=== PATIENT | male | born 1940 | race Caucasian/White ===

== ENCOUNTER 2020-06-11 21:21 | Outpatient (REF) | payer OTHER, SELFPAY ==
[2020-06-11 21:41] LABS: Glucose Urine UA NEG (NEG); Leukocyte Esterase Urine NEG (NEG); Nitrite Urine POS (NEG); PH >= 9.0 (5.0-8.0); Urine Blood NEG (NEG); Urine Ketones NEG (NEG); Urine Protein NEG (NEG-TRACE)
[2020-06-11 21:46] LABS: Color Urine YELLOW
[2020-06-11 21:47] LABS: Appearance Urine HAZY
[2020-06-11 22:02] LABS: RBC Urine 0-2 /HPF (0); WBC Urine 0-2 /HPF (0-4)
[2020-06-11 22:03] LABS: Bacteria Urine 2+ /LPF
== END 2020-06-11 21:22 | disposition home or self-care (01) ==
LOC: HO.LNP 21:21
PROVIDERS: Visit Provider Internal Medicine Medical Oncology
DX: N39.0 Urinary tract infection, site not specified (principal)
CPT/HCPCS: 81001; 87086; 87088; 87186

== ENCOUNTER 2020-06-26 05:35 | Outpatient (REF) | payer OTHER, SELFPAY | END 2020-06-26 05:36 | disposition home or self-care (01) | LOC: HO.HSH3E 05:35 | PROVIDERS: Visit Provider Internal Medicine Medical Oncology | DX: R31.9 Hematuria, unspecified (principal) | CPT/HCPCS: 87086; 87088; 87186 ==

== ENCOUNTER 2020-10-15 06:02 | Outpatient (REF) | payer OTHER, SELFPAY | END 2020-10-15 06:03 | disposition home or self-care (01) | LOC: HO.HSH3E 06:02 | PROVIDERS: Visit Provider Internal Medicine Medical Oncology | DX: S30.94XA Unspecified superficial injury of scrotum and testes, initial encounter (principal); E11.9 Type 2 diabetes mellitus without complications | CPT/HCPCS: 87071; 87147; 87205 ==

== ENCOUNTER 2020-11-04 06:38 | Outpatient (REF) | payer OTHER, SELFPAY ==
[2020-11-04 07:35] LABS: MANUAL DIFF FLAG NO
[2020-11-04 07:41] LABS: Basophils Percent Auto 0.4 % (0-2); Eosinophils Absolute Auto 0.2 X10*3/uL (0.0-0.4); Eosinophils Percent Auto 2.2 % (0-4); Hematocrit 44.4 % (42-52); Hemoglobin 14.8 g/dl (14.0-18.0); Imm Gran Abs Auto 0.02 X10*3/uL (0.00-0.03); Imm Gran Pct Auto 0.3 % (0.0-0.4); Lymphocytes Absolute Auto 2.3 X10*3/uL (1.2-4.9); Lymphocytes Percent Auto 33.7 % (20-40); Mean Corpuscular HGB Conc 33.3 g/dl (31.0-36.0); Mean Corpuscular Hemoglobin 28.6 pg (27.0-33.0); Mean Corpuscular Volume 85.7 fL (80-98); Mean Platelet Volume 10.7 fL (9.4-12.4); Monocytes Absolute Auto 0.5 X10*3/uL (0.1-1.2); Monocytes Percent Auto 7.2 % (2-11); Neutrophils Absolute Auto 3.9 X10*3/uL (2.0-8.3); Neutrophils Percent Auto 56.2 % (45-73); Platelet Count 165 X10*3/uL (160-400); Red Blood Count 5.18 X10*6/uL (4.60-5.80); White Blood Count 6.9 X10*3/uL (4.8-10.8)
[2020-11-04 08:09] LABS: Alanine Aminotransferase 22 U/L (0-40); Albumin Level 3.6 g/dL (3.5-5.0); Alkaline Phosphatase 102 U/L (39-117); Anion Gap 14 (12-20); Aspartate Amino Transferase 17 U/L (5-37); Bilirubin Total 0.6 mg/dL (0.0-1.0); Blood Urea Nitrogen 17 mg/dL (9-16); Calcium 8.8 mg/dL (8.4-10.2); Carbon Dioxide 28 mmol/L (22-29); Chloride 101 mmol/L (96-108); Estimated Glomerular Filt Rate > 60; Glucose Fasting 289 mg/dL (60-99); Sodium 139 mmol/L (135-145); Total Protein 5.9 g/dL (6.5-8.0)
[2020-11-04 08:33] LABS: Prostate Specific Antigen 3.07 ng/mL (<0.05-4.0)
[2020-11-04 09:16] LABS: Microalbum/Creatinine Ratio Ur 58.7 ug/mg cr
[2020-11-04 09:18] LABS: Estimated Average Glucose 214 mg/dL; Hemoglobin A1c % 9.1 %
== END 2020-11-04 06:39 | disposition home or self-care (01) ==
LOC: HO.HSH3E 06:38
PROVIDERS: Visit Provider Internal Medicine Medical Oncology
DX: E11.9 Type 2 diabetes mellitus without complications (principal)
CPT/HCPCS: 36415; 80053; 82043; 83036; 84153; 85025

== ENCOUNTER 2020-11-17 12:41 | Emergency (ER) | payer OTHER, SELFPAY ==
[2020-11-17 13:00] VITALS: BP 138/60; PULSE 88; RESP 18; TEMP 37.2; O2SAT 97; BMI 38.9
--- NOTE | 2020-11-17 13:00 | ED.EPISTAXIS ---
History of Present Illness General Chief Complaint: General Medical Stated Complaint: EPITAXIS Time Seen by Provider: 11/17/20 12:42 Source: patient and EMS Mode of arrival: EMS Limitations: no limitations History of Present Illness HPI Narrative: 80 y/o male presenting to the ER via EMS from the [facility] with a left nare nose bleed that started this morning. He reports it was coming out like a fountain. He held pressure for an unknown amount of time and put gauze into his nose. He is on baby aspirin but not any full anticoagulation. He has a history of nose bleeds in the alst but non in 3-4 years. He denies SOB, chest pain, nausea or vomiting. No trauma. He states his nose started to spontaneously after he ate his scrambled eggs this morning. Location: Yes left naris Onset/current episode: Yes hour(s) (1) Duration: Yes now resolved Pertinent past history: Yes history of previous nose bleed (3-4 years ago) Context: Yes history of previous nose bleed and Yes aspirin use Treatment prior to arrival: Yes stuff nose with tissue Related Data Allergies Allergy/AdvReac Type Severity Reaction Status Date / Time acetaminophen [Percocet] Allergy Unknown vomiting Verified 09/08/15 00:00 latex [LATEX] Allergy Unknown RASH Unverified 03/27/20 16:04 oxycodone [Percocet] Allergy Unknown vomiting Verified 09/08/15 00:00 latex Allergy Unknown over long Uncoded 09/08/15 00:00 period of time Review of Systems Review of Systems: Constitutional: No Fever, No Chills ENT/Mouth: No sore throat, No Rhinorrhea, No Swallowing Difficulty, +Epistaxis Eyes: No Eye Pain, No Swelling, No Redness Cardiovascular: No Chest Pain, No SOB Respiratory: No Cough, No Sputum Gastrointestinal: No Nausea, No Vomiting, No Diarrhea, No abdominal Pain Skin: No Skin Lesions, No rash Neuro: No Headache Psych: No Anxiety/Panic, No Depression Heme/Lymph: No Bruising PMFSH Past Medical History Attestation statement: The following information was validated with the patient. Social History Social History Advance Directives: No Advance Directives Information Provided: Yes Physical Exam Vital Signs: Vital Signs: Last Vital Signs Temp 98.9 F 11/17/20 13:00 Pulse 88 11/17/20 13:00 Resp 18 11/17/20 13:00 BP 138/60 11/17/20 13:00 Pulse Ox 97 11/17/20 13:00 Body Mass Index 38.9 Appearance: Alert. Oriented X3. No acute distress. Eyes: Pupils equal, round and reactive to light. ENT: left nare with moderate sized blood clot, no active bleeding, Pharynx normal, no posterior bleeding. mucus membranes are moist Neck: Normal inspection. Neck supple. CVS: Normal heart rate and rhythm. Pulses normal. Respiratory: No respiratory distress. Breath sounds normal. Abdomen: Soft and nontender. +BS x4 Skin: Skin warm and dry. Normal skin color. Normal skin turgor. No rashes. Extremities: No lower extremity edema. Neuro: Oriented X 3. No motor deficit. No sensory deficit. Course Course Course Narrative: 80 y/o male on baby aspirin presenting from [facility] with left nare epistaxis x1 hour. Resolved upon arrival. Nose clamp applied, Afrin administered. Basic labs pending. Reevaluation(s) Reevaluation #1: H/H normal. PTT slightly prolonged. normal PT/INR. No active bleeding. Gauze removed, clot removed and Afrin used in left nare. Nasal clamp applied. No active bleeding. Will reassess Reevaluation #2: Clamp removed and no active bleeding noted. He is stable for discharge. Counseled on management. Procedures Epistaxis Control Time Out Performed: No Nostril: Yes left Nose prepped with: Yes oxymetazoline Direct inspection: Yes anterior source identified Direct inspection method: Yes otoscope Clots removed by: Yes blowing nose and Yes manually Epistaxis treatment: Yes other (Afrin spray and nasal clamp) Results of treatment: Yes bleeding controlled and Yes treatment well tolerated Complications: Yes none MDM - Epistaxis Lab Data Result diagrams: 11/17/20 13:13 11/17/20 13:13 Labs: Lab Results 11/17/20 11/17/20 11/17/20 Range/Units 13:13 13:13 13:13 WBC 8.1 (4.8-10.8) X10*3/uL RBC 5.20 (4.60-5.80) X10*6/uL Hgb 14.9 (14.0-18.0) g/dl Hct 45.5 (42-52) % MCV 87.5 (80-98) fL MCH 28.7 (27.0-33.0) pg MCHC 32.7 (31.0-36.0) g/dl RDW 13.0 (11.0-16.0) % Plt Count 178 (160-400) X10*3/uL MPV 10.2 (9.4-12.4) fL Immature Gran % (Auto) 0.2 (0.0-0.4) % Neut % (Auto) 64.3 (45-73) % Lymph % (Auto) 26.6 (20-40) % [place] % (Auto) 6.8 (2-11) % Eos % (Auto) 1.7 (0-4) % Baso % (Auto) 0.4 (0-2) % Lymph # (Auto) 2.2 (1.2-4.9) X10*3/uL [place] # (Auto) 0.6 (0.1-1.2) X10*3/uL Eos # (Auto) 0.1 (0.0-0.4) X10*3/uL Baso # (Auto) 0.0 (0.0-0.2) X10*3/uL Abs Immat Gran (auto) 0.02 (0.00-0.03) X10*3/uL Absolute Neuts (auto) 5.2 (2.0-8.3) X10*3/uL Absolute Nucleated RBC 0.000 (0.0-0.012) X10*3/uL Nucleated RBC % (auto) 0.0 (0.0-0.2) /100WBC PT 12.4 (10.8-13.0) SEC INR 1.0 (0.9-1.1) APTT 40.7 H (24.1-38.0) SEC Sodium 139 (135-145) mmol/L Potassium 4.5 (3.3-5.1) mmol/L Chloride 103 (96-108) mmol/L Carbon Dioxide 26 (22-29) mmol/L Anion Gap 15 (12-20) BUN 20 H (9-16) mg/dL Creatinine 1.22 (0.5-1.4) mg/dL Estim Creat Clear Calc 69.6 Estimated GFR 57 Random Glucose 313 H (60-115) mg/dL Calcium 9.1 (8.4-10.2) mg/dL Critical Care Time Critical Care Time Critical Care Time: No Discharge Plan Discharge Clinical Impression: Acute anterior epistaxis Patient Disposition: Xfer SNF Transfer Details: [facility] Instructions: Nosebleed (ED) Additional Instructions: Your blood counts today were normal. Recommend using nasal saline two times per day to keep your nasal mucosa moist & prevent further bleeding. If you get a recurrent nose bleed use Afrin Nasal Sophia and apply pressure for 15-20 minutes. Follow up with your doctor as needed. If you have recurrent nose bleed that does not stop after holding pressure for 30 minutes, come back to the ER for further evaluation.
[2020-11-17] MEDS: Oxymetazoline HCl 0.05 % Nasal 15 ML SPRAY 2 SPRAY NOSTRIL-B (13:08)
[2020-11-17 13:18] LABS: MANUAL DIFF FLAG NO
[2020-11-17 13:19] LABS: Basophils Percent Auto 0.4 % (0-2); Eosinophils Absolute Auto 0.1 X10*3/uL (0.0-0.4); Eosinophils Percent Auto 1.7 % (0-4); Hematocrit 45.5 % (42-52); Hemoglobin 14.9 g/dl (14.0-18.0); Imm Gran Abs Auto 0.02 X10*3/uL (0.00-0.03); Imm Gran Pct Auto 0.2 % (0.0-0.4); Lymphocytes Absolute Auto 2.2 X10*3/uL (1.2-4.9); Lymphocytes Percent Auto 26.6 % (20-40); Mean Corpuscular HGB Conc 32.7 g/dl (31.0-36.0); Mean Corpuscular Hemoglobin 28.7 pg (27.0-33.0); Mean Corpuscular Volume 87.5 fL (80-98); Mean Platelet Volume 10.2 fL (9.4-12.4); Monocytes Absolute Auto 0.6 X10*3/uL (0.1-1.2); Monocytes Percent Auto 6.8 % (2-11); Neutrophils Absolute Auto 5.2 X10*3/uL (2.0-8.3); Neutrophils Percent Auto 64.3 % (45-73); Platelet Count 178 X10*3/uL (160-400); White Blood Count 8.1 X10*3/uL (4.8-10.8)
[2020-11-17 13:37] LABS: Prothrombin Time 12.4 SEC (10.8-13.0)
[2020-11-17 13:41] LABS: Partial Thromboplastin Time 40.7 SEC (24.1-38.0)
[2020-11-17 13:47] LABS: Anion Gap 15 (12-20); Blood Urea Nitrogen 20 mg/dL (9-16); Calcium 9.1 mg/dL (8.4-10.2); Carbon Dioxide 26 mmol/L (22-29); Chloride 103 mmol/L (96-108); Creatinine Clr Calc Pharmacy 69.6; Estimated Glomerular Filt Rate 57; Glucose Random 313 mg/dL (60-115); Potassium 4.5 mmol/L (3.3-5.1); Sodium 139 mmol/L (135-145)
== END 2020-11-17 15:33 | disposition skilled nursing facility (03) ==
PROVIDERS: Physician Assistant; Emergency Provider Emergency Medicine; PCP Internal Medicine Medical Oncology
DX: R04.0 Epistaxis (principal)
CPT/HCPCS: 36415; 80048; 85025; 85610; 85730; 99283; 99284

== ENCOUNTER 2020-12-17 06:07 | Outpatient (REF) | payer OTHER, SELFPAY ==
[2020-12-17 08:37] LABS: MANUAL DIFF FLAG NO
[2020-12-17 08:45] LABS: Creatinine Urine 90.74 mg/dL; Microalbum/Creatinine Ratio Ur 17.6 ug/mg cr
[2020-12-17 08:48] LABS: Basophils Percent Auto 0.5 % (0-2); Eosinophils Absolute Auto 0.2 X10*3/uL (0.0-0.4); Eosinophils Percent Auto 2.7 % (0-4); Hematocrit 39.8 % (42-52); Hemoglobin 12.9 g/dl (14.0-18.0); Imm Gran Abs Auto 0.01 X10*3/uL (0.00-0.03); Imm Gran Pct Auto 0.2 % (0.0-0.4); Lymphocytes Absolute Auto 1.9 X10*3/uL (1.2-4.9); Lymphocytes Percent Auto 32.7 % (20-40); Mean Corpuscular HGB Conc 32.4 g/dl (31.0-36.0); Mean Corpuscular Hemoglobin 28.2 pg (27.0-33.0); Mean Corpuscular Volume 87.1 fL (80-98); Mean Platelet Volume 10.6 fL (9.4-12.4); Monocytes Absolute Auto 0.5 X10*3/uL (0.1-1.2); Neutrophils Absolute Auto 3.3 X10*3/uL (2.0-8.3); Neutrophils Percent Auto 55.9 % (45-73); Platelet Count 172 X10*3/uL (160-400); Red Blood Count 4.57 X10*6/uL (4.60-5.80); Red Cell Distribution Width 13.2 % (11.0-16.0); White Blood Count 5.9 X10*3/uL (4.8-10.8)
[2020-12-17 09:06] LABS: Estimated Average Glucose 220 mg/dL; Hemoglobin A1c % 9.3 %
[2020-12-17 09:14] LABS: Alanine Aminotransferase 22 U/L (0-40); Albumin Level 3.6 g/dL (3.5-5.0); Alkaline Phosphatase 91 U/L (39-117); Anion Gap 10 (12-20); Aspartate Amino Transferase 18 U/L (5-37); Bilirubin Total 0.5 mg/dL (0.0-1.0); Blood Urea Nitrogen 17 mg/dL (9-16); Carbon Dioxide 30 mmol/L (22-29); Chloride 103 mmol/L (96-108); Cholesterol 167 mg/dL; Estimated Glomerular Filt Rate > 60; Glucose Fasting 263 mg/dL (60-99); HDL Cholesterol 33 mg/dL; LDL Cholesterol Calculated 86 mg/dl; Potassium 3.9 mmol/L (3.3-5.1); Sodium 139 mmol/L (135-145); Total Protein 5.6 g/dL (6.5-8.0); Triglycerides 240 mg/dL
== END 2020-12-17 06:08 | disposition home or self-care (01) ==
LOC: HO.HSH4E 06:07
PROVIDERS: Visit Provider Internal Medicine Endocrinology, Diabetes & Metabolism
DX: E11.9 Type 2 diabetes mellitus without complications (principal)
CPT/HCPCS: 36415; 80053; 80061; 82043; 83036; 85025

== ENCOUNTER 2021-03-23 07:51 | Outpatient (REF) | payer OTHER, SELFPAY ==
[2021-03-23 08:27] LABS: Estimated Average Glucose 163 mg/dL; Hemoglobin A1c % 7.3 %
== END 2021-03-23 07:52 | disposition home or self-care (01) ==
LOC: HO.HSH4E 07:51
PROVIDERS: Visit Provider Internal Medicine Endocrinology, Diabetes & Metabolism
DX: E11.9 Type 2 diabetes mellitus without complications (principal)
CPT/HCPCS: 36415; 83036

== ENCOUNTER 2021-06-01 10:45 | Inpatient (IN) | payer OTHER, SELFPAY ==
[2021-06-01] VITALS (10 sets, daily range): BP systolic 147–175; BP diastolic 65–88; PULSE 66–128; RESP 16–21; TEMP 36.9–38.6; O2SAT 95–96; BMI 31.1
--- NOTE | ~2021-06-01 | XR_ITS ---
EXAMINATION: XR CHEST CLINICAL INFORMATION: Fever COMPARISON: None TECHNIQUE: Portable upright AP view of the chest was obtained. FINDINGS: Patient slightly rotated to left. Probable subsegmental atelectasis left base. Lungs otherwise clear. Heart is normal in size. The vascularity is normal. No vascular congestion. No lobar or segmental airspace consolidation or effusion. The cardiac and hilar and mediastinal contours are unremarkable. There are degenerative changes thoracic spine. XR/XR chest 1V IMPRESSION: Disc atelectasis left base. Lungs otherwise clear.
--- NOTE | 2021-06-01 10:52 | ED_ITS ---
HPI - Arrhythmia/Palpitations General Chief Complaint: Arrhythmia/Palpitations Stated Complaint: NEW ONSET AFIB PER EMS Time Seen by Provider: 06/01/21 10:52 Source: patient and EMS Mode of arrival: EMS Limitations: altered mental status History of Present Illness MD complaint: atrial fibrillation (found to have irregular pulse this AM) Onset (ago): unknown Duration: constant Severity: mild Context: occurred during rest Associated symptoms: denies other symptoms Related Data Home Medications Medication Instructions Recorded Confirmed acetaminophen 325 mg tablet 650 mg PO BEDTIME 06/01/21 06/01/21 amlodipine 5 mg tablet 5 mg PO BEDTIME 06/01/21 06/01/21 aspirin 81 mg chewable tablet 81 mg PO DAILY 06/01/21 06/01/21 calcium carbonate 500 mg (1,250 1 tab PO DAILY 06/01/21 06/01/21 mg)-vitamin D3 200 unit tablet (Calcium 500 + D) carboxymethylcellulose sodium 1 % 1 drp OPHTHALMIC (EYE) BID 06/01/21 06/01/21 eye drops cholecalciferol (vitamin D3) 25 25 mcg PO DAILY 06/01/21 06/01/21 mcg (1,000 unit) tablet cyanocobalamin (vitamin B-12) 1,000 mcg IM QMONTH 06/01/21 06/01/21 1,000 mcg/mL injection solution docusate sodium 100 mg tablet 100 mg PO DAILY 06/01/21 06/01/21 gabapentin 400 mg capsule 400 mg PO BID 06/01/21 06/01/21 insulin glargine 100 unit/mL 70 unit SUBCUT BEDTIME 06/01/21 06/01/21 subcutaneous solution (Lantus U-100 Insulin) insulin lispro 100 unit/mL 1 sliding scale dose SUBCUT 06/01/21 06/01/21 subcutaneous solution USEASDIRECTD insulin lispro 100 unit/mL 10 unit SUBCUT DAILY@1800 06/01/21 06/01/21 subcutaneous solution insulin lispro 100 unit/mL 12 unit SUBCUT DAILY@1200 06/01/21 06/01/21 subcutaneous solution insulin lispro 100 unit/mL 14 unit SUBCUT DAILY@0800 06/01/21 06/01/21 subcutaneous solution magnesium hydroxide 400 mg/5 mL 30 ml PO BEDTIME PRN 06/01/21 06/01/21 oral suspension (Milk of Magnesia) multivitamin with minerals 1 tab PO DAILY 06/01/21 06/01/21 tamsulosin 0.4 mg capsule 0.8 mg PO BEDTIME 06/01/21 06/01/21 valsartan 160 mg capsule 160 mg PO DAILY 06/01/21 06/01/21 vit C 250 mg-vit E 90 mg-zinc 40 2 tab PO DAILY 06/01/21 06/01/21 mg-copper 1 dm-cuvjac-xlealt capsule (PreserVision AREDS-2) Allergies Allergy/AdvReac Type Severity Reaction Status Date / Time acetaminophen [Percocet] Allergy Unknown vomiting Verified 09/08/15 00:00 latex [LATEX] Allergy Unknown RASH Unverified 03/27/20 16:04 oxycodone [Percocet] Allergy Unknown vomiting Verified 09/08/15 00:00 latex Allergy Unknown over long Uncoded 09/08/15 00:00 period of time Review of Systems Review of Systems: ROS unable to be obtained due to altered mental status - baseline dementia [facility] Past Medical History Source: old records reviewed and nursing notes reviewed Medical History Dementia HTN (hypertension) Social History Social History (Updated 06/01/21 @ 11:16 by Leida Christine DO) Patient Tobacco Use Status: Tobacco use Unknown Advance Directives: Yes Advance Directives on File: Yes Advance Directives Date on File: 11/17/20 Physical Exam Vital Signs: Vital Signs: Last Vital Signs Temp 99 F 06/01/21 12:59 Pulse 85 06/01/21 12:59 Resp 21 H 06/01/21 12:03 BP 160/78 H 06/01/21 10:55 Pulse Ox 95 06/01/21 10:55 Body Mass Index 31.1 Appearance: Alert. Oriented X2. No acute distress. Eyes: Pupils equal, round and reactive to light. ENT: Pharynx normal. Neck: Normal inspection. Neck supple. CVS: tachycardic and irregular heart rate and rhythm. Pulses normal. Respiratory: No respiratory distress. Breath sounds normal. Abdomen: Soft and nontender. no grimace Skin: Skin warm and dry. Normal skin color. Normal skin turgor. Extremities: No lower extremity edema. No calf ttp Neuro: Oriented X 2. No motor deficit. No sensory deficit. Course Course Course Narrative: + UA prior proteus S to ceftriaxone given new onset afib and UTI will admit to hospital - his HCP wants him admitted MDM - Arrhythmia/Palpitations MDM Narrative Medical decision making narrative: 80 yo male with hx of dementia, bed bound, HTN, DNR/DNI does not want to be hospitalized brought to ED with irregular HR found to be in new onset afib - he is febrile will need labs, CXR, UA, tylenol will discuss with family treatment options suspect UTI vs pneumonia and infection possibly the cause of his new afib Lab Data Result diagrams: 06/01/21 11:06/01/21 11: Labs: Lab Results 06/01/21 06/01/21 06/01/21 Range/Units 11: 11: 11: WBC 14.1 H (4.8-10.8) X10*3/uL RBC 5.12 (4.60-5.80) X10*6/uL Hgb 14.4 (14.0-18.0) g/dl Hct 44.2 (42.0-52.0) % MCV 86.3 (80.0-98.0) fL MCH 28.1 (27.0-33.0) pg MCHC 32.6 (31.0-36.0) g/dl RDW 13.2 (11.0-16.0) % Plt Count 174 (160-400) X10*3/uL MPV 10.3 (9.4-12.4) fL Immature Gran % (Auto) 0.4 (0.0-0.4) % Neut % (Auto) 82.2 H (45-73) % Lymph % (Auto) 9.8 L (20-40) % [place] % (Auto) 7.2 (2-11) % Eos % (Auto) 0.2 (0-4) % Baso % (Auto) 0.2 (0-2) % Lymph # (Auto) 1.4 (1.2-4.9) X10*3/uL [place] # (Auto) 1.0 (0.1-1.2) X10*3/uL Eos # (Auto) 0.0 (0.0-0.4) X10*3/uL Baso # (Auto) 0.0 (0.0-0.2) X10*3/uL Abs Immat Gran (auto) 0.06 H (0.00-0.03) X10*3/uL Absolute Neuts (auto) 11.6 H (2.0-8.3) x10*3/uL Absolute Nucleated RBC 0.000 (0.0-0.012) X10*3/uL Nucleated RBC % (auto) 0.0 (0.0-0.2) /100WBC PT 12.5 (9.9-13.0) SEC INR 1.1 (0.9-1.1) APTT 38.6 H (24.1-38.0) SEC Sodium 140 (135-145) mmol/L Potassium 4.1 (3.3-5.1) mmol/L Chloride 105 (96-108) mmol/L Carbon Dioxide 24 (22-29) mmol/L Anion Gap 15 (12-20) BUN 24 H (9-16) mg/dL Creatinine 1.06 (0.5-1.4) mg/dL Estim Creat Clear Calc 71.7 Estimated GFR > 60 Random Glucose 204 H (60-115) mg/dL Lactic Acid (0.5-2.0) mmol/L Calcium 9.2 (8.4-10.2) mg/dL Magnesium 1.8 (1.6-2.6) mg/dL Total Bilirubin 1.0 (0.0-1.0) mg/dL Direct Bilirubin 0.3 (0.0-0.5) mg/dL AST 39 H D (5-37) U/L ALT 41 H (0-40) U/L Alkaline Phosphatase 105 (39-117) U/L Troponin I High Sens (<3.5-35.0) ng/L B-Natriuretic Peptide (<100) pg/mL Total Protein 6.9 D (6.5-8.0) g/dL Albumin 4.1 (3.5-5.0) g/dL TSH 1.51 (0.32-4.0) uIU/mL Urine Color Urine Appearance Urine pH (5.0-8.0) Ur Specific [place] (1.005-1.025) Urine Protein (NEG-TRACE) MG/DL Urine Glucose (UA) (NEG) MG/DL Urine Ketones (NEG) MG/DL Urine Blood (NEG) Urine Nitrite (NEG) Ur Leukocyte Esterase (NEG) Urine RBC (0) /HPF Urine WBC (0-4) /HPF Ur Squamous Epith Cells /LPF Urine Bacteria /LPF COVID-19 (NARCISO) (Negative) COVID-19 Clin Com 06/01/21 06/01/21 06/01/21 Range/Units 11:26 11:26 11:26 WBC (4.8-10.8) X10*3/uL RBC (4.60-5.80) X10*6/uL Hgb (14.0-18.0) g/dl Hct (42.0-52.0) % MCV (80.0-98.0) fL MCH (27.0-33.0) pg MCHC (31.0-36.0) g/dl RDW (11.0-16.0) % Plt Count (160-400) X10*3/uL MPV (9.4-12.4) fL Immature Gran % (Auto) (0.0-0.4) % Neut % (Auto) (45-73) % Lymph % (Auto) (20-40) % [place] % (Auto) (2-11) % Eos % (Auto) (0-4) % Baso % (Auto) (0-2) % Lymph # (Auto) (1.2-4.9) X10*3/uL [place] # (Auto) (0.1-1.2) X10*3/uL Eos # (Auto) (0.0-0.4) X10*3/uL Baso # (Auto) (0.0-0.2) X10*3/uL Abs Immat Gran (auto) (0.00-0.03) X10*3/uL Absolute Neuts (auto) (2.0-8.3) x10*3/uL Absolute Nucleated RBC (0.0-0.012) X10*3/uL Nucleated RBC % (auto) (0.0-0.2) /100WBC PT (9.9-13.0) SEC INR (0.9-1.1) APTT (24.1-38.0) SEC Sodium (135-145) mmol/L Potassium (3.3-5.1) mmol/L Chloride (96-108) mmol/L Carbon Dioxide (22-29) mmol/L Anion Gap (12-20) BUN (9-16) mg/dL Creatinine (0.5-1.4) mg/dL Estim Creat Clear Calc Estimated GFR Random Glucose (60-115) mg/dL Lactic Acid 1.8 (0.5-2.0) mmol/L Calcium (8.4-10.2) mg/dL Magnesium (1.6-2.6) mg/dL Total Bilirubin (0.0-1.0) mg/dL Direct Bilirubin (0.0-0.5) mg/dL AST (5-37) U/L ALT (0-40) U/L Alkaline Phosphatase (39-117) U/L Troponin I High Sens 13.4 (<3.5-35.0) ng/L B-Natriuretic Peptide 71 (<100) pg/mL Total Protein (6.5-8.0) g/dL Albumin (3.5-5.0) g/dL TSH (0.32-4.0) uIU/mL Urine Color YELLOW Urine Appearance CLOUDY Urine pH 6.0 (5.0-8.0) Ur Specific [place] 1.020 (1.005-1.025) Urine Protein TRACE (NEG-TRACE) MG/DL Urine Glucose (UA) NEG (NEG) MG/DL Urine Ketones NEG (NEG) MG/DL Urine Blood 2+ H (NEG) Urine Nitrite POS H (NEG) Ur Leukocyte Esterase 1+ H (NEG) Urine RBC 5-9 H (0) /HPF Urine WBC 30-49 H (0-4) /HPF Ur Squamous Epith Cells TRACE /LPF Urine Bacteria 3+ /LPF COVID-19 (NARCISO) (Negative) COVID-19 Clin Com 06/01/21 Range/Units 11:28 WBC (4.8-10.8) X10*3/uL RBC (4.60-5.80) X10*6/uL Hgb (14.0-18.0) g/dl Hct (42.0-52.0) % MCV (80.0-98.0) fL MCH (27.0-33.0) pg MCHC (31.0-36.0) g/dl RDW (11.0-16.0) % Plt Count (160-400) X10*3/uL MPV (9.4-12.4) fL Immature Gran % (Auto) (0.0-0.4) % Neut % (Auto) (45-73) % Lymph % (Auto) (20-40) % [place] % (Auto) (2-11) % Eos % (Auto) (0-4) % Baso % (Auto) (0-2) % Lymph # (Auto) (1.2-4.9) X10*3/uL [place] # (Auto) (0.1-1.2) X10*3/uL Eos # (Auto) (0.0-0.4) X10*3/uL Baso # (Auto) (0.0-0.2) X10*3/uL Abs Immat Gran (auto) (0.00-0.03) X10*3/uL Absolute Neuts (auto) (2.0-8.3) x10*3/uL Absolute Nucleated RBC (0.0-0.012) X10*3/uL Nucleated RBC % (auto) (0.0-0.2) /100WBC PT (9.9-13.0) SEC INR (0.9-1.1) APTT (24.1-38.0) SEC Sodium (135-145) mmol/L Potassium (3.3-5.1) mmol/L Chloride (96-108) mmol/L Carbon Dioxide (22-29) mmol/L Anion Gap (12-20) BUN (9-16) mg/dL Creatinine (0.5-1.4) mg/dL Estim Creat Clear Calc Estimated GFR Random Glucose (60-115) mg/dL Lactic Acid (0.5-2.0) mmol/L Calcium (8.4-10.2) mg/dL Magnesium (1.6-2.6) mg/dL Total Bilirubin (0.0-1.0) mg/dL Direct Bilirubin (0.0-0.5) mg/dL AST (5-37) U/L ALT (0-40) U/L Alkaline Phosphatase (39-117) U/L Troponin I High Sens (<3.5-35.0) ng/L B-Natriuretic Peptide (<100) pg/mL Total Protein (6.5-8.0) g/dL Albumin (3.5-5.0) g/dL TSH (0.32-4.0) uIU/mL Urine Color Urine Appearance Urine pH (5.0-8.0) Ur Specific [place] (1.005-1.025) Urine Protein (NEG-TRACE) MG/DL Urine Glucose (UA) (NEG) MG/DL Urine Ketones (NEG) MG/DL Urine Blood (NEG) Urine Nitrite (NEG) Ur Leukocyte Esterase (NEG) Urine RBC (0) /HPF Urine WBC (0-4) /HPF Ur Squamous Epith Cells /LPF Urine Bacteria /LPF COVID-19 (NARCISO) Negative (Negative) COVID-19 Clin Com See Note ECG Data Attestation: I personally reviewed and interpreted this ECG as follows: ECG interpretation date: 06/01/21 ECG interpretation time: 11:12 Interpretation: Rate: 130 Rhythm: afib with RVR [place]: normal Normal QRS complex. ST T wave : nonspecific, no CASTRO qTC: normal prior studies: no acute ischemia The study has been interpreted contemporaneously by me. . Discharge Plan Discharge Clinical Impression: Acute UTI A-fib Qualifiers: Atrial fibrillation type: unspecified Qualified Code(s): I48.91 - Unspecified atrial fibrillation Fever Qualifiers: Fever type: unspecified Qualified Code(s): R50.9 - Fever, unspecified Patient Disposition: Admitted As Inpatient
--- NOTE | 2021-06-01 11:01 | ECG_ITS ---
Test Reason : A-FIB Blood Pressure : / mmHG Vent. Rate : 130 BPM Atrial Rate : 000 BPM P-R Int : 000 ms QRS Dur : 080 ms QT Int : 298 ms P-R-T Axes : 000 004 043 degrees QTc Int : 438 ms Atrial fibrillation with rapid ventricular response Abnormal ECG When compared with ECG of 19-MAR-2015 14:14, Atrial fibrillation has replaced Sinus rhythm Vent. rate has increased BY 71 BPM Referred By: Leida Christine Electronically Signed By:SAGAR HO MD
[2021-06-01 11:34] LABS: MANUAL DIFF FLAG NO
[2021-06-01] MEDS: Acetaminophen 325 MG TABLET 650 MG PO (11:37)
[2021-06-01 11:42] LABS: Appearance Urine CLOUDY; Basophils Percent Auto 0.2 % (0-2); Color Urine YELLOW; Eosinophils Percent Auto 0.2 % (0-4); Glucose Urine UA NEG (NEG); Hematocrit 44.2 % (42.0-52.0); Hemoglobin 14.4 g/dl (14.0-18.0); Imm Gran Abs Auto 0.06 X10*3/uL (0.00-0.03); Imm Gran Pct Auto 0.4 % (0.0-0.4); Leukocyte Esterase Urine 1+ (NEG); Lymphocytes Absolute Auto 1.4 X10*3/uL (1.2-4.9); Lymphocytes Percent Auto 9.8 % (20-40); Mean Corpuscular HGB Conc 32.6 g/dl (31.0-36.0); Mean Corpuscular Hemoglobin 28.1 pg (27.0-33.0); Mean Corpuscular Volume 86.3 fL (80.0-98.0); Mean Platelet Volume 10.3 fL (9.4-12.4); Monocytes Percent Auto 7.2 % (2-11); Neutrophils Absolute Auto 11.6 x10*3/uL (2.0-8.3); Neutrophils Percent Auto 82.2 % (45-73); Nitrite Urine POS (NEG); Platelet Count 174 X10*3/uL (160-400); Red Blood Count 5.12 X10*6/uL (4.60-5.80); Red Cell Distribution Width 13.2 % (11.0-16.0); UACC Culture Trigger YES; Urine Blood 2+ (NEG); Urine Ketones NEG (NEG); Urine Protein TRACE MG/DL (NEG-TRACE); White Blood Count 14.1 X10*3/uL (4.8-10.8)
[2021-06-01 11:46] LABS: INTERNATIONAL NORM RATIO 1.1 (0.9-1.1); Prothrombin Time 12.5 SEC (9.9-13.0)
[2021-06-01 11:49] LABS: Partial Thromboplastin Time 38.6 SEC (24.1-38.0)
[2021-06-01 11:55] LABS: Bacteria Urine 3+ /LPF; Squamous Epithelial Cell Urine TRACE /LPF
[2021-06-01 11:56] LABS: WBC Urine 30-49 /HPF (0-4)
[2021-06-01 11:56] LABS: COVID-19 Test Negative (Negative); IDNOW Serial# 9DD0AD1C
[2021-06-01 11:57] LABS: Alanine Aminotransferase 41 U/L (0-40); Albumin Level 4.1 g/dL (3.5-5.0); Alkaline Phosphatase 105 U/L (39-117); Anion Gap 15 (12-20); Aspartate Amino Transferase 39 U/L (5-37); Bilirubin Direct 0.3 mg/dL (0.0-0.5); Blood Urea Nitrogen 24 mg/dL (9-16); Calcium 9.2 mg/dL (8.4-10.2); Carbon Dioxide 24 mmol/L (22-29); Chloride 105 mmol/L (96-108); Creatinine Clr Calc Pharmacy 71.7; Estimated Glomerular Filt Rate > 60; Glucose Random 204 mg/dL (60-115); Lactic Acid 1.8 mmol/L (0.5-2.0); Magnesium 1.8 mg/dL (1.6-2.6); Potassium 4.1 mmol/L (3.3-5.1); Sodium 140 mmol/L (135-145); Total Protein 6.9 g/dL (6.5-8.0)
[2021-06-01 11:59] LABS: B Type Natriuretic Peptide 71 pg/mL (<100); Troponin-I High Sensitivity 13.4 ng/L (<3.5-35.0)
[2021-06-01] MEDS: cefTRIAXone sodium 1 GM in 0.9 % Sodium Chloride 50 ML IV (12:03)
[2021-06-01 12:16] LABS: TSH reflex Free T4 1.51 uIU/mL (0.32-4.0)
--- NOTE | 2021-06-01 13:22 | PHA.MEDREC ---
Pharmacy Consult ? Medication Reconciliation Pharmacy has completed the medication reconciliation. There are no remarkable issues for provider's attention. Patient came for the [facility] with medication list. Janna Salinas, TevinD
--- NOTE | 2021-06-01 13:29 | PM.IMHP ---
History of Present Illness Date of Service: 06/01/21 Attending physician on admission: Chirag Francis Chief Complaint: Afib RVR 80 year old man [facility] fever found to be in afib rvr and positive for UTI. He denied any chest pain, shortness of breath, pain, nausea, vomiting, diarrhea. He was given Rocephin with hx of proteus UTI in the past. He was noted to have fever, leukocytosis and tachycardia with positive ua. He will be admitted for further management and treatment of new onset afib rvr and uti Review of Systems Review of Systems: Denies any recent fever chills or decrease in appetite respiratory denies any shortness of breath cardiovascular denied chest pain gastrointestinal denies any dysphagia abdominal pain nausea vomiting or diarrhea genitourinary denies any dysuria frequency or hematuria musculoskeletal denies any joint pain or swelling neuropsych denies any weakness or seizures all other systems reviewed are negative [facility] Medical History Dementia HTN (hypertension) Pertinent family history: No cardiac disease Social History (Updated 06/01/21 @ 11:16 by Leida Christine DO) Patient Tobacco Use Status: Tobacco use Unknown Advance Directives: Yes Advance Directives on File: Yes Advance Directives Date on File: 11/17/20 Meds Allergies Allergy/AdvReac Type Severity Reaction Status Date / Time acetaminophen [Percocet] Allergy Unknown vomiting Verified 09/08/15 00:00 latex [LATEX] Allergy Unknown RASH Unverified 03/27/20 16:04 oxycodone [Percocet] Allergy Unknown vomiting Verified 09/08/15 00:00 latex Allergy Unknown over long Uncoded 09/08/15 00:00 period of time Active Medications: Current Medications Pharmacy Consult (Consult Rx Perform Med Rec) 1 each MISCELLANE ONCE PRN PRN Reason: Consult order Home Medications Medication Instructions Recorded Confirmed Last Taken Type acetaminophen 325 mg tablet 650 mg PO BEDTIME 06/01/21 06/01/21 05/31/21 History amlodipine 5 mg tablet 5 mg PO BEDTIME 06/01/21 06/01/21 05/31/21 History aspirin 81 mg chewable tablet 81 mg PO DAILY 06/01/21 06/01/21 06/01/21 History calcium carbonate 500 mg (1,250 1 tab PO DAILY 06/01/21 06/01/21 06/01/21 History mg)-vitamin D3 200 unit tablet (Calcium 500 + D) carboxymethylcellulose sodium 1 % 1 drp OPHTHALMIC (EYE) BID 06/01/21 06/01/21 06/01/21 History eye drops cholecalciferol (vitamin D3) 25 25 mcg PO DAILY 06/01/21 06/01/21 06/01/21 History mcg (1,000 unit) tablet cyanocobalamin (vitamin B-12) 1,000 mcg IM QMONTH 06/01/21 06/01/21 04/24/21 History 1,000 mcg/mL injection solution docusate sodium 100 mg tablet 100 mg PO DAILY 06/01/21 06/01/21 06/01/21 History gabapentin 400 mg capsule 400 mg PO BID 06/01/21 06/01/21 06/01/21 History insulin glargine 100 unit/mL 70 unit SUBCUT BEDTIME 06/01/21 06/01/21 05/31/21 History subcutaneous solution (Lantus U-100 Insulin) insulin lispro 100 unit/mL 1 sliding scale dose SUBCUT 06/01/21 06/01/21 05/31/21 History subcutaneous solution USEASDIRECTD insulin lispro 100 unit/mL 10 unit SUBCUT DAILY@1800 06/01/21 06/01/21 05/31/21 History subcutaneous solution insulin lispro 100 unit/mL 12 unit SUBCUT DAILY@1200 06/01/21 06/01/21 05/31/21 History subcutaneous solution insulin lispro 100 unit/mL 14 unit SUBCUT DAILY@0800 06/01/21 06/01/21 05/31/21 History subcutaneous solution magnesium hydroxide 400 mg/5 mL 30 ml PO BEDTIME PRN 06/01/21 06/01/21 05/27/21 History oral suspension (Milk of Magnesia) multivitamin with minerals 1 tab PO DAILY 06/01/21 06/01/21 06/01/21 History tamsulosin 0.4 mg capsule 0.8 mg PO BEDTIME 06/01/21 06/01/21 05/31/21 History valsartan 160 mg capsule 160 mg PO DAILY 06/01/21 06/01/21 06/01/21 History vit C 250 mg-vit E 90 mg-zinc 40 2 tab PO DAILY 06/01/21 06/01/21 06/01/21 History mg-copper 1 [id number] capsule (PreserVision AREDS-2) Physical Exam Vital Signs and Narrative: Vital Signs: Last Vital Signs Temp 99 F 06/01/21 12:59 Pulse 85 06/01/21 12:59 Resp 21 H 06/01/21 12:03 BP 160/78 H 06/01/21 10:55 Pulse Ox 95 06/01/21 10:55 Body Mass Index 31.1 Appearing in no acute distress head is normocephalic atraumatic eyes pupils are PERRLA sclera is anicteric mouth throat mucous membranes are intact and moist neck is supple no lymphadenopathy, no JVD noted lung sounds are clear to auscultation heart regular rate rhythm, clear S1, S2 positive bowel sounds, abdomen is soft, nontender, obese neuro patient is alert x3, no focal deficits Results Labs CBC and Chem 7: 06/01/21 11:26 06/01/21 11:26 Labs: Laboratory Results - last 24 hr 06/01/21 06/01/21 06/01/21 11:26 11:26 11:26 MCV 86.3 MCH 28.1 MCHC 32.6 RDW 13.2 Plt Count 174 MPV 10.3 Immature Gran % (Auto) 0.4 Neut % (Auto) 82.2 H Lymph % (Auto) 9.8 L [place] % (Auto) 7.2 Eos % (Auto) 0.2 Baso % (Auto) 0.2 Lymph # (Auto) 1.4 [place] # (Auto) 1.0 Eos # (Auto) 0.0 Baso # (Auto) 0.0 Abs Immat Gran (auto) 0.06 H Absolute Neuts (auto) 11.6 H Absolute Nucleated RBC 0.000 Nucleated RBC % (auto) 0.0 PT 12.5 INR 1.1 APTT 38.6 H Anion Gap 15 Estim Creat Clear Calc 71.7 Estimated GFR > 60 Random Glucose 204 H Lactic Acid Calcium 9.2 Magnesium 1.8 Total Bilirubin 1.0 Direct Bilirubin 0.3 AST 39 H D ALT 41 H Alkaline Phosphatase 105 Troponin I High Sens B-Natriuretic Peptide Total Protein 6.9 D Albumin 4.1 TSH 1.51 Urine Color Urine Appearance Urine pH Ur Specific [place] Urine Protein Urine Glucose (UA) Urine Ketones Urine Blood Urine Nitrite Ur Leukocyte Esterase Urine RBC Urine WBC Ur Squamous Epith Cells Urine Bacteria COVID-19 (NARCISO) COVID-19 Clin Com 06/01/21 06/01/21 06/01/21 11:26 11:26 11:26 MCV MCH MCHC RDW Plt Count MPV Immature Gran % (Auto) Neut % (Auto) Lymph % (Auto) [place] % (Auto) Eos % (Auto) Baso % (Auto) Lymph # (Auto) [place] # (Auto) Eos # (Auto) Baso # (Auto) Abs Immat Gran (auto) Absolute Neuts (auto) Absolute Nucleated RBC Nucleated RBC % (auto) PT INR APTT Anion Gap Estim Creat Clear Calc Estimated GFR Random Glucose Lactic Acid 1.8 Calcium Magnesium Total Bilirubin Direct Bilirubin AST ALT Alkaline Phosphatase Troponin I High Sens 13.4 B-Natriuretic Peptide 71 Total Protein Albumin TSH Urine Color YELLOW Urine Appearance CLOUDY Urine pH 6.0 Ur Specific [place] 1.020 Urine Protein TRACE Urine Glucose (UA) NEG Urine Ketones NEG Urine Blood 2+ H Urine Nitrite POS H Ur Leukocyte Esterase 1+ H Urine RBC 5-9 H Urine WBC 30-49 H Ur Squamous Epith Cells TRACE Urine Bacteria 3+ COVID-19 (NARCISO) COVID-19 Clin Com 06/01/21 11:28 MCV MCH MCHC RDW Plt Count MPV Immature Gran % (Auto) Neut % (Auto) Lymph % (Auto) [place] % (Auto) Eos % (Auto) Baso % (Auto) Lymph # (Auto) [place] # (Auto) Eos # (Auto) Baso # (Auto) Abs Immat Gran (auto) Absolute Neuts (auto) Absolute Nucleated RBC Nucleated RBC % (auto) PT INR APTT Anion Gap Estim Creat Clear Calc Estimated GFR Random Glucose Lactic Acid Calcium Magnesium Total Bilirubin Direct Bilirubin AST ALT Alkaline Phosphatase Troponin I High Sens B-Natriuretic Peptide Total Protein Albumin TSH Urine Color Urine Appearance Urine pH Ur Specific [place] Urine Protein Urine Glucose (UA) Urine Ketones Urine Blood Urine Nitrite Ur Leukocyte Esterase Urine RBC Urine WBC Ur Squamous Epith Cells Urine Bacteria COVID-19 (NARCISO) Negative COVID-19 Clin Com See Note Imaging Radiologist's Impressions: Impressions Chest X-Ray 06/01/21 11:01 IMPRESSION: Disc atelectasis left base. Lungs otherwise clear. Assessment and Plan (1) Acute UTI: Status: Acute (2) A-fib: Qualifiers: Atrial fibrillation type: unspecified Qualified Code(s): I48.91 - Unspecified atrial fibrillation Status: Acute (3) Sepsis: Status: Acute 80 year old man admitted with afib rvr Afib rvr . New onset ? related to UTI Controlled now cardiology to follow discuss blood thinner with family Sepsis secondary to UTI. Hx of proteus Leukocytosis, tachycardia, tachypnea Rocephin Follow cx Hypertension continue amlodipine, valsartan Diabetes sliding scale ADA diet Attending Dr Francis DNR Quality Stroke Does the patient have a stroke diagnosis?: No VTE Prior VTE?: No VTE Risk Level:: Medical - moderate - high VTE Device Contraindication: Treatment Not Indicated VTE Drug Contraindication: N/A - Med Ordered
--- NOTE | 2021-06-01 16:40 | P.EN_ITS ---
Event Note Date of Service: 06/01/21 Event Note: Addendum to history and physical by mid-level provider GENERAL INTERN Rosa pierce I interviewed and examined the patient. I discussed their presentation and management with the mid-level provider. I reviewed the history and physical and agree with the documentation, with the following additions and corrections: 80yo M resident of [facility] with HTN, DM2 presenting with fever, found to be septic with leukocytosis, and found to be in AF/RVR, new-onset. Pyuria + bacteruria concerning for UTI though pt with minimal symptoms. Converted to NSR around 11:15am. On exam, in NAD, heart regular, lungs clear, fully oriented, no leg edema. Lactate normal. Plan admit to [facility], TTE, Cardiology consult, apixaban for anticoagulation. Treat UTI with ceftriaxone + follow UCx.
[2021-06-01 16:45] LABS: Glucose, Whole Blood 170 mg/dL (60-115)
[2021-06-01] MEDS: Insulin Lispro 100 UNIT/ML 3 ML VIAL SUBCUT ×2 (16:48→21:44)
[2021-06-01] MEDS: 0.9 % Sodium Chloride Flush 3 ML SYRINGE IVFLUSH (17:02)
[2021-06-01] MEDS: Insulin Lispro 100 UNIT/ML 3 ML VIAL 10 UNIT SUBCUT (18:43)
--- NOTE | 2021-06-01 19:35 | PC.NURSE ---
Report x1 called, RN to call back. Pt alert and oriented x4, calm and cooperative. Pt denies pain. Pt denies heart palpitations at this time. Denies SOB. Heart rate elevated at 120 at this time. Remains on room air. IV intact. Pt resting in stretcher without issues, will continue to monitor.
[2021-06-01 20:20] LABS: Glucose, Whole Blood 266 mg/dL (60-115)
[2021-06-01] MEDS: Tamsulosin HCL 0.4 MG CAPSULE 0.8 MG PO (21:43)
[2021-06-01] MEDS: Apixaban 5 MG TABLET PO (21:43)
[2021-06-01] MEDS: amLODIPine Besylate 5 MG TABLET PO (21:43)
[2021-06-01] MEDS: Gabapentin 400 MG CAPSULE PO (21:44)
[2021-06-01] MEDS: Insulin Glargine,Hum.rec.anlog 100 UNIT/ML 10 ML VIAL 70 UNIT SUBCUT (21:44)
[2021-06-02] VITALS (7 sets, daily range): BP systolic 116–168; BP diastolic 56–76; PULSE 74–96; RESP 18–20; TEMP 37–38.7; O2SAT 91–98
--- NOTE | 2021-06-02 | ECG_ITS ---
Test Reason : RHYTHM CHANGE Blood Pressure : / mmHG Vent. Rate : 075 BPM Atrial Rate : 075 BPM P-R Int : 178 ms QRS Dur : 086 ms QT Int : 374 ms P-R-T Axes : 052 -21 050 degrees QTc Int : 417 ms Normal sinus rhythm Left axis deviation Poor R wave progression Borderline ECG When compared with ECG of 01-JUN-2021 11:08, Sinus rhythm has replaced Atrial fibrillation Vent. rate has decreased BY 55 BPM Referred By: David Sharma Electronically Signed By:SAGAR HO MD
[2021-06-02] MEDS: 0.9 % Sodium Chloride Flush 3 ML SYRINGE IVFLUSH ×4 (01:05→21:30)
[2021-06-02 06:42] LABS: MANUAL DIFF FLAG NO
[2021-06-02 06:57] LABS: Basophils Percent Auto 0.2 % (0-2); Eosinophils Absolute Auto 0.1 X10*3/uL (0.0-0.4); Eosinophils Percent Auto 0.5 % (0-4); Hematocrit 43.6 % (42.0-52.0); Hemoglobin 14.3 g/dl (14.0-18.0); Imm Gran Abs Auto 0.04 X10*3/uL (0.00-0.03); Imm Gran Pct Auto 0.3 % (0.0-0.4); Lymphocytes Absolute Auto 1.3 X10*3/uL (1.2-4.9); Lymphocytes Percent Auto 10.9 % (20-40); Mean Corpuscular HGB Conc 32.8 g/dl (31.0-36.0); Mean Corpuscular Hemoglobin 28.4 pg (27.0-33.0); Mean Corpuscular Volume 86.5 fL (80.0-98.0); Mean Platelet Volume 10.7 fL (9.4-12.4); Monocytes Absolute Auto 0.9 X10*3/uL (0.1-1.2); Monocytes Percent Auto 7.5 % (2-11); Neutrophils Absolute Auto 9.7 x10*3/uL (2.0-8.3); Neutrophils Percent Auto 80.6 % (45-73); Platelet Count 173 X10*3/uL (160-400); Red Blood Count 5.04 X10*6/uL (4.60-5.80); Red Cell Distribution Width 13.4 % (11.0-16.0); White Blood Count 12.1 X10*3/uL (4.8-10.8)
[2021-06-02 07:01] LABS: Anion Gap 14 (12-20); Blood Urea Nitrogen 21 mg/dL (9-16); Calcium 8.8 mg/dL (8.4-10.2); Carbon Dioxide 25 mmol/L (22-29); Chloride 104 mmol/L (96-108); Creatinine Clr Calc Pharmacy 73.1; Estimated Glomerular Filt Rate > 60; Glucose Random 193 mg/dL (60-115); Potassium 3.7 mmol/L (3.3-5.1); Sodium 139 mmol/L (135-145)
[2021-06-02 07:17] LABS: Glucose, Whole Blood 226 mg/dL (60-115)
--- NOTE | 2021-06-02 09:00 | CA_ITS ---
Transthoracic Echocardiogram Patient (Last, First, Middle): Marty Hannah, Gender: Male Date of : 1940 Age: 80 Procedure Date: 06/02/2021 Procedure Type: Transthoracic Echocardiogram [place] [facility] [place]: 182.88 cm Weight: 136.08 kg BSA: 2.53 m2 Heart Rate: bpm BP: 160 / 78 mmHg Fullerette: Referring MD: Chirag Francis MD Paradichlorobenzene Tender: David Sharma MD Symptoms: new AF/rVR Study Quality: Technically Difficult due to body habitus ECG Rhythm: Sinus Conclusions: - 1. Technically very limited study due to body habitus 2. LV systolic function appears to be normal with LVEF of about 55-60% with grade 1 diastolic dysfunction 3. Limited visualization of cardiac valves with normal cardiac valvular Doppler Findings Procedure Information Contrast agent, definity, is being given per protocol without apparent complications. Left Ventricle The left ventricle was not well visualized. There is mildly increased left ventricular wall thickness. The left ventricular systolic function is normal. The visually estimated ejection fraction is between 55-60%. Regional wall motion abnormalities can not be excluded due to suboptimal endocardial definition. Spectral Doppler is indicative of an impaired relaxation filling pattern. E/E prime ratio is <8, consistent with normal filling pressures. Evidence suggests grade I (mild) diastolic dysfunction. Right Ventricle The right ventricle was not well visualized. There is normal right ventricular systolic function. Atria The left atrium was not well visualized. Interatrial shunt cannot be excluded. The right atrium was not well visualized. Aortic Valve The aortic valve was not well visualized. There is no aortic valve stenosis. There is no aortic valve regurgitation. Mitral Valve The mitral valve was not well visualized. There is no mitral valve regurgitation. There is no mitral valve stenosis. Pulmonic Valve The pulmonic valve was not well visualized. Tricuspid Valve The tricuspid valve was not well visualized. Tricuspid regurgitation envelope is inadequate for calculation of right ventricular systolic pressure. Great Vessels The aorta was not well visualized. The pulmonary artery was not well visualized. Venous The inferior vena cava was not well visualized. Pericardium/Pleural The pericardium was not well visualized. Prior Study Comparison No prior study available for comparison. Measurements 2D Linear Measurements IVSd: 1.33 0.6-0.9/0.6-1.0 cm LVIDd: 4.22 3.9-5.3/4.2-5.9 cm LVIDd Index: 1.67 2.4-3.2/2.2-3.1 cm/m2 LVIDs: 3.24 2.0-3.6 cm LVPWd: 1.29 0.7-1.1 cm Ao Root: 3.70 2.1-3.5 cm LV Mass: 254.66 67-162/88-224 g LV Mass Index: 100.65 43-95/49-115 g/m2 LVOT Diam: 2.50 3.0+(-)1.3 cm Mitral Valve MV Pk E: 0.53 MV PK A: 0.77 MV Decel Time: 262.00 E/A: 0.70 E'Lateral: 7.40 E'Medial: 5.87 E/E' Med: 9.00 E/E' Lat: 7.10 PHT: 77.00 MVA PHT: 2.86 Decel [place]: 2.01 Aortic Valve AoV Pk Casey: 1.59 AoV Mn Casey: 1.10 AoV VTI: 0.35 AoV Pk Grad: 10.00 Aov Mn Grad: 6.00 CLARI Cont.VTI: 4.27 LVOT LVOT Pk Casey: 1.26 LVOT Mn Casey: 0.85 LVOT VTI: 0.30 LVOT Pk Grad: 6.00 LVOT Mn Grad: 4.00 LVOT Diam: 2.50 LVOT Area: 4.91 Diastolic Function MV Pk E: 0.53 MV Pk A: 0.77 E/A: 0.70 E'Medial: 5.87 E/E' Med: 9.00 E' Laterial: 7.40 E/E' Lat: 7.10 Tricuspid Valve TR Pk Casey: 1.79 TR Pk Grad: 13.00 Great Vessels Aorta Ao Root-2D: 3.70 2.0-3.7 cm Updated in Other Vendor System with Status of Final David Sharma MD electronically signed on 06/02/2021 12:16:23 PM with status of Final
[2021-06-02] MEDS: Docusate Sodium 100 MG CAPSULE PO (09:26)
[2021-06-02] MEDS: Aspirin 81 MG TAB.CHEW PO (09:26)
[2021-06-02] MEDS: Apixaban 5 MG TABLET PO ×2 (09:26→21:29)
[2021-06-02] MEDS: Cholecalciferol (Vitamin D3) 25 MCG TABLET PO (09:26)
[2021-06-02] MEDS: Calcium + Vitamin D 250 MG TABLET 500 MG PO (09:26)
[2021-06-02] MEDS: Multivitamin TABLET 1 TAB PO (09:26)
[2021-06-02] MEDS: Gabapentin 400 MG CAPSULE PO ×2 (09:26→21:29)
[2021-06-02] MEDS: Insulin Lispro 100 UNIT/ML 3 ML VIAL SUBCUT ×4 (09:27→21:30)
[2021-06-02] MEDS: Valsartan 160 MG TABLET PO (09:28)
--- NOTE | 2021-06-02 10:02 | HO.PM.IMPN ---
Subjective Subjective Date of Service: 06/02/21 Interval History: feels well several runs of AF overnight without symptoms no urinary symptoms either Review of Systems Review of Systems: Yes all other systems are reviewed and are negative Physical Exam Vital Signs: Vital Signs: Last Vital Signs Temp 99.4 F 06/02/21 07:30 Pulse 74 06/02/21 09:28 Resp 20 06/02/21 07:30 BP 147/66 H 06/02/21 09:28 Pulse Ox 94 06/02/21 07:30 Body Mass Index 31.1 Gen: in no acute distress HEENT: sclera anicteric, moist mucus membranes Neck: supple Lungs: clear to auscultation bilaterally Heart: regular rate and rhythm, no murmurs Abd: soft, non-tender, non-distended Ext: no edema Skin: warm/well-perfused Neuro: alert and oriented x3, no focal findings Psych: appropriate affect Objective Data Active Medications Acetaminophen (Acetaminophen 325 Mg Tablet) 650 mg PO Q6H PRN PRN Reason: Pain, Mild (Pain Scale 1-3) Amlodipine Besylate (Amlodipine Besylate 5 Mg Tablet) 5 mg PO BEDTIME [facility]; Protocol Last Admin: 06/01/21 21:43 Dose: 5 mg Documented by: ROLAND Apixaban (Apixaban 5 Mg Tablet) 5 mg PO BID [facility] Last Admin: 06/02/21 09:26 Dose: 5 mg Documented by: WILBERT Aspirin (Aspirin 81 Mg Tab.Chew) 81 mg PO DAILY [facility] Last Admin: 06/02/21 09:26 Dose: 81 mg Documented by: WILBERT Calcium Carbonate/Cholecalciferol (Calcium + Vitamin D 250 Mg Tablet) 500 mg PO DAILY [facility] Last Admin: 06/02/21 09:26 Dose: 500 mg Documented by: WILBERT Cyanocobalamin (Cyanocobalamin (Vitamin B-12) 1,000 Mcg/Ml Vial) 1,000 mcg IM Q30D [facility] Dextrose (Dextrose 50 % 25 Gm/50 Ml Vial) 25 gm IVPUSH Q15M PRN; Protocol PRN Reason: per Hypoglycemia Standing Ord. Docusate Sodium (Docusate Sodium 100 Mg Capsule) 100 mg PO DAILY [facility] Last Admin: 06/02/21 09:26 Dose: 100 mg Documented by: WILBERT Gabapentin (Gabapentin 400 Mg Capsule) 400 mg PO BID [facility] Last Admin: 06/02/21 09:26 Dose: 400 mg Documented by: WILBERT Glucose (Glucose Gel 15 Gm Gel..Gram.) 15 gm PO Q15M PRN; Protocol PRN Reason: per Hypoglycemia Standing Ord. Ceftriaxone Sodium 1 gm/ (Sodium Chloride) 50 mls @ 100 mls/hr IV Q24H [facility] Insulin Glargine (Insulin Glargine,Hum.Rec.Anlog 100 Unit/Ml 10 Ml Vial) 70 unit SUBCUT BEDTIME [facility] Last Admin: 06/01/21 21:44 Dose: 70 unit Documented by: ROLAND Insulin Human Lispro (Insulin Lispro 100 Unit/Ml 3 Ml Vial) 12 unit SUBCUT DAILY@1200 [facility] Insulin Human Lispro (Insulin Lispro 100 Unit/Ml 3 Ml Vial) 0 unit SUBCUT QIDACHS [facility]; Protocol Last Admin: 06/02/21 09:27 Dose: 4 unit Documented by: WILBERT Insulin Human Lispro (Insulin Lispro 100 Unit/Ml 3 Ml Vial) 10 unit SUBCUT DAILY@1800 [facility] Last Admin: 06/01/21 18:43 Dose: 10 unit Documented by: KERA Magnesium Hydroxide (Milk Of Magnesia 30 Ml Oral.Susp) 30 ml PO BEDTIME PRN PRN Reason: Constipation Metoprolol Succinate (Metoprolol Succinate Er 12.5 Mg Halftab.Er.24h) 12.5 mg PO DAILY [facility]; Protocol Multivitamins/Vitamin C (Multivitamin Tablet) 1 tab PO DAILY [facility] Last Admin: 06/02/21 09:26 Dose: 1 tab Documented by: WILBERT Ondansetron HCl (Ondansetron Hcl 4 Mg/2 Ml Vial) 4 mg IVPUSH Q8H PRN PRN Reason: Nausea and Vomiting Pharmacy Consult (Consult Rx Perform Med Rec) 1 each MISCELLANE ONCE PRN PRN Reason: Consult order Sodium Chloride (0.9 % Sodium Chloride Flush 3 Ml Syringe) 3 ml IVFLUSH QSHIFT [facility] Last Admin: 06/02/21 09:27 Dose: 3 ml Documented by: WILBERT Tamsulosin HCl (Tamsulosin Hcl 0.4 Mg Capsule) 0.8 mg PO BEDTIME [facility] Last Admin: 06/01/21 21:43 Dose: 0.8 mg Documented by: ROLAND Valsartan (Valsartan 160 Mg Tablet) 160 mg PO DAILY [facility] Last Admin: 06/02/21 09:28 Dose: 160 mg Documented by: WILBERT Vitamin D (Cholecalciferol (Vitamin D3) 25 Mcg Tablet) 25 mcg PO DAILY [facility] Last Admin: 06/02/21 09:26 Dose: 25 mcg Documented by: WILBERT Labs CBC & Chem 7: 06/02/21 05:55 06/02/21 05:55 Labs: Laboratory Results - last 24 hr 06/01/21 06/01/21 06/01/21 11:26 11:26 11:26 MCV 86.3 MCH 28.1 MCHC 32.6 RDW 13.2 Plt Count 174 MPV 10.3 Immature Gran % (Auto) 0.4 Neut % (Auto) 82.2 H Lymph % (Auto) 9.8 L [place] % (Auto) 7.2 Eos % (Auto) 0.2 Baso % (Auto) 0.2 Lymph # (Auto) 1.4 [place] # (Auto) 1.0 Eos # (Auto) 0.0 Baso # (Auto) 0.0 Abs Immat Gran (auto) 0.06 H Absolute Neuts (auto) 11.6 H Absolute Nucleated RBC 0.000 Nucleated RBC % (auto) 0.0 PT 12.5 INR 1.1 APTT 38.6 H Anion Gap 15 Estim Creat Clear Calc 71.7 Estimated GFR > 60 POC Glucose Random Glucose 204 H Lactic Acid Calcium 9.2 Magnesium 1.8 Total Bilirubin 1.0 Direct Bilirubin 0.3 AST 39 H D ALT 41 H Alkaline Phosphatase 105 Troponin I High Sens B-Natriuretic Peptide Total Protein 6.9 D Albumin 4.1 TSH 1.51 Urine Color Urine Appearance Urine pH Ur Specific [place] Urine Protein Urine Glucose (UA) Urine Ketones Urine Blood Urine Nitrite Ur Leukocyte Esterase Urine RBC Urine WBC Ur Squamous Epith Cells Urine Bacteria COVID-19 (NARCISO) COVID-19 Clin Com 06/01/21 06/01/21 06/01/21 11:26 11:26 11:26 MCV MCH MCHC RDW Plt Count MPV Immature Gran % (Auto) Neut % (Auto) Lymph % (Auto) [place] % (Auto) Eos % (Auto) Baso % (Auto) Lymph # (Auto) [place] # (Auto) Eos # (Auto) Baso # (Auto) Abs Immat Gran (auto) Absolute Neuts (auto) Absolute Nucleated RBC Nucleated RBC % (auto) PT INR APTT Anion Gap Estim Creat Clear Calc Estimated GFR POC Glucose Random Glucose Lactic Acid 1.8 Calcium Magnesium Total Bilirubin Direct Bilirubin AST ALT Alkaline Phosphatase Troponin I High Sens 13.4 B-Natriuretic Peptide 71 Total Protein Albumin TSH Urine Color YELLOW Urine Appearance CLOUDY Urine pH 6.0 Ur Specific [place] 1.020 Urine Protein TRACE Urine Glucose (UA) NEG Urine Ketones NEG Urine Blood 2+ H Urine Nitrite POS H Ur Leukocyte Esterase 1+ H Urine RBC 5-9 H Urine WBC 30-49 H Ur Squamous Epith Cells TRACE Urine Bacteria 3+ COVID-19 (NARCISO) COVID-19 Clin Com 06/01/21 06/01/21 06/01/21 11:28 16:42 20:14 MCV MCH MCHC RDW Plt Count MPV Immature Gran % (Auto) Neut % (Auto) Lymph % (Auto) [place] % (Auto) Eos % (Auto) Baso % (Auto) Lymph # (Auto) [place] # (Auto) Eos # (Auto) Baso # (Auto) Abs Immat Gran (auto) Absolute Neuts (auto) Absolute Nucleated RBC Nucleated RBC % (auto) PT INR APTT Anion Gap Estim Creat Clear Calc Estimated GFR POC Glucose 170 H 266 H Random Glucose Lactic Acid Calcium Magnesium Total Bilirubin Direct Bilirubin AST ALT Alkaline Phosphatase Troponin I High Sens B-Natriuretic Peptide Total Protein Albumin TSH Urine Color Urine Appearance Urine pH Ur Specific [place] Urine Protein Urine Glucose (UA) Urine Ketones Urine Blood Urine Nitrite Ur Leukocyte Esterase Urine RBC Urine WBC Ur Squamous Epith Cells Urine Bacteria COVID-19 (NARCISO) Negative COVID-19 Clin Com See Note 06/02/21 06/02/21 06/02/21 05:55 05:55 07:09 MCV 86.5 MCH 28.4 MCHC 32.8 RDW 13.4 Plt Count 173 MPV 10.7 Immature Gran % (Auto) 0.3 Neut % (Auto) 80.6 H Lymph % (Auto) 10.9 L [place] % (Auto) 7.5 Eos % (Auto) 0.5 Baso % (Auto) 0.2 Lymph # (Auto) 1.3 [place] # (Auto) 0.9 Eos # (Auto) 0.1 Baso # (Auto) 0.0 Abs Immat Gran (auto) 0.04 H Absolute Neuts (auto) 9.7 H Absolute Nucleated RBC 0.000 Nucleated RBC % (auto) 0.0 PT INR APTT Anion Gap 14 Estim Creat Clear Calc 73.1 Estimated GFR > 60 POC Glucose 226 H Random Glucose 193 H Lactic Acid Calcium 8.8 Magnesium Total Bilirubin Direct Bilirubin AST ALT Alkaline Phosphatase Troponin I High Sens B-Natriuretic Peptide Total Protein Albumin TSH Urine Color Urine Appearance Urine pH Ur Specific [place] Urine Protein Urine Glucose (UA) Urine Ketones Urine Blood Urine Nitrite Ur Leukocyte Esterase Urine RBC Urine WBC Ur Squamous Epith Cells Urine Bacteria COVID-19 (NARCISO) COVID-19 Clin Com Microbiology Microbiology Results: Microbiology 06/01/21 00:00 Urine Culture - Preliminary Urine Catheterized - Straight Catheter Gram negative nixon Assessment and Plan (1) Sepsis: Status: Acute (2) Acute UTI: Status: Acute (3) A-fib: Status: Acute Assessment and Plan: 80[facility] M resident of [facility] with HTN, DM2 presenting with fever found to be septic due to UTI, also new-onset pAF/RVR # pAF - start low-dose metoprolol succinate for rate control - start apixaban for anticoagulation - TTE + Cardiology consult pending # sepsis # UTI - ceftriaxone d#2, follow UCx/BCx # HTN - amlodipine + valsartan; metoprolol as above # DM2 (A1c 7.3, 03/23/21) - basal/bolus insulin # neuropathy - gabapentin # prostatism - tamsulosin # VTE ppx - LMWH Quality Stroke Does the patient have a stroke diagnosis?: No VTE Prior VTE?: No VTE Risk Level:: Medical - moderate - high VTE Device Contraindication: Treatment Not Indicated VTE Drug Contraindication: N/A - Med Ordered
--- NOTE | 2021-06-02 10:21 | PM.CNCAR ---
History of Present Illness History of Present Illness Date of Service: 06/02/21 Requesting physician: Rosa Colbert Consult reason: atrial fibrillation Chief complaint: Afib rvr, uti Narrative: I was consulted to see Marty in cardiology consultation today for new onset atrial fibrillation. He is a pleasant but confused 80-year-old male was sent from [facility] because he was having fever and UTI and was noted to have rapid heart rate. When he came to the hospital was noted to be in atrial fibrillation rapid ventricular response with symptoms suggestive of sepsis and acute urinary tract infection. He was admitted. Overnight at around 02:48 he converted back to sinus rhythm has remained in sinus rhythm. He does not recall, however is history is suspect due to his dementia. But he denies any cardiac symptoms at current time. Denies any prior cardiac symptoms and denies any symptoms of palpitation when he came to the hospital. Review of Systems Constitutional: Constitutional: Reports no additional constitutional complaints Cardiovascular: Cardiovascular: Reports no additional cardiovascular complaints Respiratory: Respiratory: Reports no additional respiratory complaints Gastrointestinal: Gastrointestinal: Reports no additional gastrointestinal complaints Genitourinary: Genitourinary: Reports no additional male genitourinary complaints Musculoskeletal: Musculoskeletal: Reports no additional musculoskeletal complaints Integumentary/Breasts: Skin/Breast: Reports system reviewed and no additional complaints, except as docu Neurologic: Reports system reviewed and no additional complaints, except as documented Psychiatric: Psychiatric: Reports no additional psychiatric complaints Endocrine: Endocrine: Reports no additional endocrine complaints PMF Past Medical History Medical History Dementia HTN (hypertension) Social History Social History Household Members: None and Other 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 Tobacco Use Status: Tobacco use Unknown Advance Directives Date on File: 11/17/20 Meds Allergies Allergy/AdvReac Type Severity Reaction Status Date / Time acetaminophen [Percocet] Allergy Unknown vomiting Verified 09/08/15 00:00 latex [LATEX] Allergy Unknown RASH Unverified 03/27/20 16:04 oxycodone [Percocet] Allergy Unknown vomiting Verified 09/08/15 00:00 latex Allergy Unknown over long Uncoded 09/08/15 00:00 period of time Active Medications: Current Medications Acetaminophen (Acetaminophen 325 Mg Tablet) 650 mg PO Q6H PRN PRN Reason: Pain, Mild (Pain Scale 1-3) Amlodipine Besylate (Amlodipine Besylate 5 Mg Tablet) 5 mg PO BEDTIME [facility]; Protocol Last Admin: 06/01/21 21:43 Dose: 5 mg Documented by: Apixaban (Apixaban 5 Mg Tablet) 5 mg PO BID [facility] Last Admin: 06/02/21 09:26 Dose: 5 mg Documented by: Calcium Carbonate/Cholecalciferol (Calcium + Vitamin D 250 Mg Tablet) 500 mg PO DAILY [facility] Last Admin: 06/02/21 09:26 Dose: 500 mg Documented by: Cyanocobalamin (Cyanocobalamin (Vitamin B-12) 1,000 Mcg/Ml Vial) 1,000 mcg IM Q30D [facility] Dextrose (Dextrose 50 % 25 Gm/50 Ml Vial) 25 gm IVPUSH Q15M PRN; Protocol PRN Reason: per Hypoglycemia Standing Ord. Docusate Sodium (Docusate Sodium 100 Mg Capsule) 100 mg PO DAILY [facility] Last Admin: 06/02/21 09:26 Dose: 100 mg Documented by: Gabapentin (Gabapentin 400 Mg Capsule) 400 mg PO BID [facility] Last Admin: 06/02/21 09:26 Dose: 400 mg Documented by: Glucose (Glucose Gel 15 Gm Gel..Gram.) 15 gm PO Q15M PRN; Protocol PRN Reason: per Hypoglycemia Standing Ord. Ceftriaxone Sodium 1 gm/ (Sodium Chloride) 50 mls @ 100 mls/hr IV Q24H [facility] Insulin Glargine (Insulin Glargine,Hum.Rec.Anlog 100 Unit/Ml 10 Ml Vial) 70 unit SUBCUT BEDTIME [facility] Last Admin: 06/01/21 21:44 Dose: 70 unit Documented by: Insulin Human Lispro (Insulin Lispro 100 Unit/Ml 3 Ml Vial) 12 unit SUBCUT DAILY@1200 [facility] Insulin Human Lispro (Insulin Lispro 100 Unit/Ml 3 Ml Vial) 0 unit SUBCUT QIDACHS [facility]; Protocol Last Admin: 06/02/21 09:27 Dose: 4 unit Documented by: Insulin Human Lispro (Insulin Lispro 100 Unit/Ml 3 Ml Vial) 10 unit SUBCUT DAILY@1800 [facility] Last Admin: 06/01/21 18:43 Dose: 10 unit Documented by: Magnesium Hydroxide (Milk Of Magnesia 30 Ml Oral.Susp) 30 ml PO BEDTIME PRN PRN Reason: Constipation Metoprolol Succinate (Metoprolol Succinate Er 12.5 Mg Halftab.Er.24h) 12.5 mg PO DAILY [facility]; Protocol Multivitamins/Vitamin C (Multivitamin Tablet) 1 tab PO DAILY [facility] Last Admin: 06/02/21 09:26 Dose: 1 tab Documented by: Ondansetron HCl (Ondansetron Hcl 4 Mg/2 Ml Vial) 4 mg IVPUSH Q8H PRN PRN Reason: Nausea and Vomiting Pharmacy Consult (Consult Rx Perform Med Rec) 1 each MISCELLANE ONCE PRN PRN Reason: Consult order Sodium Chloride (0.9 % Sodium Chloride Flush 3 Ml Syringe) 3 ml IVFLUSH QSHIFT [facility] Last Admin: 06/02/21 09:27 Dose: 3 ml Documented by: Tamsulosin HCl (Tamsulosin Hcl 0.4 Mg Capsule) 0.8 mg PO BEDTIME [facility] Last Admin: 06/01/21 21:43 Dose: 0.8 mg Documented by: Valsartan (Valsartan 160 Mg Tablet) 160 mg PO DAILY [facility] Last Admin: 06/02/21 09:28 Dose: 160 mg Documented by: Vitamin D (Cholecalciferol (Vitamin D3) 25 Mcg Tablet) 25 mcg PO DAILY [facility] Last Admin: 06/02/21 09:26 Dose: 25 mcg Documented by: Home Medications Medication Instructions Recorded Confirmed Last Taken Type acetaminophen 325 mg tablet 650 mg PO BEDTIME 06/01/21 06/01/21 05/31/21 History amlodipine 5 mg tablet 5 mg PO BEDTIME 06/01/21 06/01/21 05/31/21 History aspirin 81 mg chewable tablet 81 mg PO DAILY 06/01/21 06/01/21 06/01/21 History calcium carbonate 500 mg (1,250 1 tab PO DAILY 06/01/21 06/01/21 06/01/21 History mg)-vitamin D3 200 unit tablet (Calcium 500 + D) carboxymethylcellulose sodium 1 % 1 drp OPHTHALMIC (EYE) BID 06/01/21 06/01/21 06/01/21 History eye drops cholecalciferol (vitamin D3) 25 25 mcg PO DAILY 06/01/21 06/01/21 06/01/21 History mcg (1,000 unit) tablet cyanocobalamin (vitamin B-12) 1,000 mcg IM QMONTH 06/01/21 06/01/21 04/24/21 History 1,000 mcg/mL injection solution docusate sodium 100 mg tablet 100 mg PO DAILY 06/01/21 06/01/21 06/01/21 History gabapentin 400 mg capsule 400 mg PO BID 06/01/21 06/01/21 06/01/21 History insulin glargine 100 unit/mL 70 unit SUBCUT BEDTIME 06/01/21 06/01/21 05/31/21 History subcutaneous solution (Lantus U-100 Insulin) insulin lispro 100 unit/mL 1 sliding scale dose SUBCUT 06/01/21 06/01/21 05/31/21 History subcutaneous solution USEASDIRECTD insulin lispro 100 unit/mL 10 unit SUBCUT DAILY@1800 06/01/21 06/01/21 05/31/21 History subcutaneous solution insulin lispro 100 unit/mL 12 unit SUBCUT DAILY@1200 06/01/21 06/01/21 05/31/21 History subcutaneous solution insulin lispro 100 unit/mL 14 unit SUBCUT DAILY@0800 06/01/21 06/01/21 05/31/21 History subcutaneous solution magnesium hydroxide 400 mg/5 mL 30 ml PO BEDTIME PRN 06/01/21 06/01/21 05/27/21 History oral suspension (Milk of Magnesia) multivitamin with minerals 1 tab PO DAILY 06/01/21 06/01/21 06/01/21 History tamsulosin 0.4 mg capsule 0.8 mg PO BEDTIME 06/01/21 06/01/21 05/31/21 History valsartan 160 mg capsule 160 mg PO DAILY 06/01/21 06/01/21 06/01/21 History vit C 250 mg-vit E 90 mg-zinc 40 2 tab PO DAILY 06/01/21 06/01/21 06/01/21 History mg-copper 1 [id number] capsule (PreserVision AREDS-2) Physical Exam Vital Signs: Vital Signs: Last Vital Signs Temp 99.4 F 06/02/21 07:30 Pulse 74 06/02/21 09:28 Resp 20 06/02/21 07:30 BP 147/66 H 06/02/21 09:28 Pulse Ox 94 06/02/21 07:30 Body Mass Index 31.1 Const: General: cooperative, comfortable, no acute distress, alert and awake Nutritional Appearance: obese HENMT: Head: Yes normocephalic and Yes atraumatic Neck: Neck: Yes trachea midline, Yes supple and Yes no JVD Resp: Effort & Inspection: normal respiratory effort Auscultation: no crackles, no wheezes and diminished lung sounds Cardio: Jugular venous distension: no JVD Palpation: normal PMI Rate: regular rate Rhythm: regular rhythm Heart sounds: S1 normal heart sound present, S2 normal heart sound present, no click, no gallops and no murmurs GI: Auscultation: normal bowel sounds Skin: General skin exam: no rashes or lesions noted Neuro: General: no focal motor deficits Objective Labs and Meds Result diagrams: 06/02/21 05:55 06/02/21 05:55 Lab results: Laboratory Results - last 24 hr 06/01/21 06/01/21 06/01/21 11:26 11:26 11:26 WBC 14.1 H RBC 5.12 Hgb 14.4 Hct 44.2 MCV 86.3 MCH 28.1 MCHC 32.6 RDW 13.2 Plt Count 174 MPV 10.3 Immature Gran % (Auto) 0.4 Neut % (Auto) 82.2 H Lymph % (Auto) 9.8 L [place] % (Auto) 7.2 Eos % (Auto) 0.2 Baso % (Auto) 0.2 Lymph # (Auto) 1.4 [place] # (Auto) 1.0 Eos # (Auto) 0.0 Baso # (Auto) 0.0 Abs Immat Gran (auto) 0.06 H Absolute Neuts (auto) 11.6 H Absolute Nucleated RBC 0.000 Nucleated RBC % (auto) 0.0 PT 12.5 INR 1.1 APTT 38.6 H Sodium 140 Potassium 4.1 Chloride 105 Carbon Dioxide 24 Anion Gap 15 BUN 24 H Creatinine 1.06 Estim Creat Clear Calc 71.7 Estimated GFR > 60 POC Glucose Random Glucose 204 H Lactic Acid Calcium 9.2 Magnesium 1.8 Total Bilirubin 1.0 Direct Bilirubin 0.3 AST 39 H D ALT 41 H Alkaline Phosphatase 105 Troponin I High Sens B-Natriuretic Peptide Total Protein 6.9 D Albumin 4.1 TSH 1.51 Urine Color Urine Appearance Urine pH Ur Specific [place] Urine Protein Urine Glucose (UA) Urine Ketones Urine Blood Urine Nitrite Ur Leukocyte Esterase Urine RBC Urine WBC Ur Squamous Epith Cells Urine Bacteria COVID-19 (NARCISO) COVID-19 Clin Com 06/01/21 06/01/21 06/01/21 11:26 11:26 11:26 WBC RBC Hgb Hct MCV MCH MCHC RDW Plt Count MPV Immature Gran % (Auto) Neut % (Auto) Lymph % (Auto) [place] % (Auto) Eos % (Auto) Baso % (Auto) Lymph # (Auto) [place] # (Auto) Eos # (Auto) Baso # (Auto) Abs Immat Gran (auto) Absolute Neuts (auto) Absolute Nucleated RBC Nucleated RBC % (auto) PT INR APTT Sodium Potassium Chloride Carbon Dioxide Anion Gap BUN Creatinine Estim Creat Clear Calc Estimated GFR POC Glucose Random Glucose Lactic Acid 1.8 Calcium Magnesium Total Bilirubin Direct Bilirubin AST ALT Alkaline Phosphatase Troponin I High Sens 13.4 B-Natriuretic Peptide 71 Total Protein Albumin TSH Urine Color YELLOW Urine Appearance CLOUDY Urine pH 6.0 Ur Specific [place] 1.020 Urine Protein TRACE Urine Glucose (UA) NEG Urine Ketones NEG Urine Blood 2+ H Urine Nitrite POS H Ur Leukocyte Esterase 1+ H Urine RBC 5-9 H Urine WBC 30-49 H Ur Squamous Epith Cells TRACE Urine Bacteria 3+ COVID-19 (NARCISO) COVID-19 [employer] Drinks Com 06/01/21 06/01/21 06/01/21 11:28 16:42 20:14 WBC RBC Hgb Hct MCV MCH MCHC RDW Plt Count MPV Immature Gran % (Auto) Neut % (Auto) Lymph % (Auto) [place] % (Auto) Eos % (Auto) Baso % (Auto) Lymph # (Auto) [place] # (Auto) Eos # (Auto) Baso # (Auto) Abs Immat Gran (auto) Absolute Neuts (auto) Absolute Nucleated RBC Nucleated RBC % (auto) PT INR APTT Sodium Potassium Chloride Carbon Dioxide Anion Gap BUN Creatinine Estim Creat Clear Calc Estimated GFR POC Glucose 170 H 266 H Random Glucose Lactic Acid Calcium Magnesium Total Bilirubin Direct Bilirubin AST ALT Alkaline Phosphatase Troponin I High Sens B-Natriuretic Peptide Total Protein Albumin TSH Urine Color Urine Appearance Urine pH Ur Specific [place] Urine Protein Urine Glucose (UA) Urine Ketones Urine Blood Urine Nitrite Ur Leukocyte Esterase Urine RBC Urine WBC Ur Squamous Epith Cells Urine Bacteria COVID-19 (NARCISO) Negative COVID-19 Clin Com See Note 06/02/21 06/02/21 06/02/21 05:55 05:55 07:09 WBC 12.1 H RBC 5.04 Hgb 14.3 Hct 43.6 MCV 86.5 MCH 28.4 MCHC 32.8 RDW 13.4 Plt Count 173 MPV 10.7 Immature Gran % (Auto) 0.3 Neut % (Auto) 80.6 H Lymph % (Auto) 10.9 L [place] % (Auto) 7.5 Eos % (Auto) 0.5 Baso % (Auto) 0.2 Lymph # (Auto) 1.3 [place] # (Auto) 0.9 Eos # (Auto) 0.1 Baso # (Auto) 0.0 Abs Immat Gran (auto) 0.04 H Absolute Neuts (auto) 9.7 H Absolute Nucleated RBC 0.000 Nucleated RBC % (auto) 0.0 PT INR APTT Sodium 139 Potassium 3.7 Chloride 104 Carbon Dioxide 25 Anion Gap 14 BUN 21 H Creatinine 1.04 Estim Creat Clear Calc 73.1 Estimated GFR > 60 POC Glucose 226 H Random Glucose 193 H Lactic Acid Calcium 8.8 Magnesium Total Bilirubin Direct Bilirubin AST ALT Alkaline Phosphatase Troponin I High Sens B-Natriuretic Peptide Total Protein Albumin TSH Urine Color Urine Appearance Urine pH Ur Specific [place] Urine Protein Urine Glucose (UA) Urine Ketones Urine Blood Urine Nitrite Ur Leukocyte Esterase Urine RBC Urine WBC Ur Squamous Epith Cells Urine Bacteria COVID-19 (NARCISO) COVID-19 Clin Com Imaging Radiologist's impression: Impressions Chest X-Ray 06/01/21 11:01 IMPRESSION: Disc atelectasis left base. Lungs otherwise clear. Assessment and Plan (1) Paroxysmal atrial fibrillation: Status: Acute Patient with new onset atrial fibrillation, triggered by the acute medical illness with sepsis and UTI. At high risk for recurrent atrial fibrillation due to his age as well as underlying history of hypertension. Obtain an echocardiogram to evaluate LV systolic and diastolic function biatrial chamber size. Agree with oral anticoagulation therapy with Eliquis. Continue to manage his underlying medical condition. Would increase his metoprolol to at least 25 mg daily to reduce cardiac excitability. Blood pressure is otherwise well optimized. Will sign of the case. Please consult us if needed Procedures Date of Service Date of Service: 06/02/21
[2021-06-02] MEDS: Metoprolol Succinate ER 12.5 MG HALFTAB.ER.24H PO (10:38)
[2021-06-02 11:19] LABS: Glucose, Whole Blood 285 mg/dL (60-115)
--- NOTE | 2021-06-02 11:57 | MHC.CM.PN ---
Male 80 DX Afib RVR UTI He lives @ the [facility]. He states that he uses a WC to prevent falls. He requires assist with ADLs. HCP is on file. He has been Xaccinated x2. He is unsure which brand. DP return to [facility] via BLS.
[2021-06-02] MEDS: cefTRIAXone sodium 1 GM in 0.9 % Sodium Chloride 50 ML IV (13:26)
[2021-06-02 16:32] LABS: Glucose, Whole Blood 217 mg/dL (60-115)
[2021-06-02] MEDS: Insulin Lispro 100 UNIT/ML 3 ML VIAL 12 UNIT SUBCUT ×2 (17:45→17:46)
[2021-06-02] MEDS: Insulin Lispro 100 UNIT/ML 3 ML VIAL 10 UNIT SUBCUT (17:46)
[2021-06-02 21:15] LABS: Glucose, Whole Blood 236 mg/dL (60-115)
[2021-06-02] MEDS: Tamsulosin HCL 0.4 MG CAPSULE 0.8 MG PO (21:29)
[2021-06-02] MEDS: amLODIPine Besylate 5 MG TABLET PO (21:29)
[2021-06-02] MEDS: Insulin Glargine,Hum.rec.anlog 100 UNIT/ML 10 ML VIAL 70 UNIT SUBCUT (21:29)
[2021-06-02] MEDS: Acetaminophen 325 MG TABLET 650 MG PO (21:38)
[2021-06-03] VITALS (9 sets, daily range): BP systolic 120–168; BP diastolic 60–78; PULSE 54–77; RESP 18–20; TEMP 36.3–37.2; O2SAT 93–98
[2021-06-03 07:38] LABS: Glucose, Whole Blood 240 mg/dL (60-115)
[2021-06-03] MEDS: Insulin Lispro 100 UNIT/ML 3 ML VIAL SUBCUT ×4 (08:01→20:25)
[2021-06-03] MEDS: Docusate Sodium 100 MG CAPSULE PO (08:01)
[2021-06-03] MEDS: Apixaban 5 MG TABLET PO ×2 (08:01→20:25)
[2021-06-03] MEDS: Gabapentin 400 MG CAPSULE PO ×2 (08:01→20:25)
[2021-06-03] MEDS: Multivitamin TABLET 1 TAB PO (08:01)
[2021-06-03] MEDS: Calcium + Vitamin D 250 MG TABLET 500 MG PO (08:01)
[2021-06-03] MEDS: Cholecalciferol (Vitamin D3) 25 MCG TABLET PO (08:01)
[2021-06-03] MEDS: 0.9 % Sodium Chloride Flush 3 ML SYRINGE IVFLUSH ×3 (08:01→20:28)
[2021-06-03] MEDS: Valsartan 160 MG TABLET PO (08:08)
[2021-06-03] MEDS: Metoprolol Succinate ER 12.5 MG HALFTAB.ER.24H PO (08:08)
[2021-06-03 11:06] LABS: Glucose, Whole Blood 230 mg/dL (60-115)
--- NOTE | 2021-06-03 11:18 | MHC.SL.SWA ---
Speech Pathologist Impression: Risk of Aspiration Pharyngeal Dysphagia Risk of Aspiration Due to: impaired cognition Dysphasia Diet Status: Continue REGULAR consistency solids, DOWNGRADE to NECTAR THICK liquids Liquid Consistency and Strategies for Safe Swallow: Liquid Intake Recommendation: [place] Thick Liquid Intake Strategies: Small Sips No Straws Solid Food Consistency: Dietary Recommendations: Regular Additional Modifications to Solid Foods: Oral Medication Intake: Whole with Liquid Compensatory Strategies and Precautions to be Taken for Safe Swallow: Aspiration precautions Supervision While Eating and Drinking for Safe Swallow: Intermittent Supervision Foods to Avoid: dry, sticky solids Swallowing Recommended Treatments: Compens. Strategy Educat. Recommendation for Speech: Inpatient Speech Therapy Comment: day M-F [employer] Clinican/Clinical Fellow: No Supervisory Statement: I have reviewed and agree with the student/clinical fellow's documentation: N/A Speech Language Pathologist: Debra Madrid M.A., [facility]-HUMAN RELATIONS MANAGER
--- NOTE | 2021-06-03 11:52 | P.PNIM_ITS ---
Subjective Subjective Date of Service: 06/03/21 Interval History: cc: ams interval history: feels well Cardiovascular Cardiovascular: Reports no additional cardiovascular complaints Respiratory Respiratory: Reports no additional respiratory complaints Physical Exam Vital Signs: Vital Signs: Last Vital Signs Temp 98.2 F 06/03/21 11:10 Pulse 57 06/03/21 11:10 Resp 20 06/03/21 11:10 BP 132/60 06/03/21 11:10 Pulse Ox 97 06/03/21 11:10 Body Mass Index 31.1 Gen: in no acute distress HEENT: sclera anicteric, moist mucus membranes Neck: supple Lungs: clear to auscultation bilaterally Heart: regular rate and rhythm, no murmurs Abd: soft, non-tender, non-distended Ext: no edema Skin: warm/well-perfused Neuro: alert and oriented x2, no focal findings Psych: appropriate affect Objective Data Active Medications Acetaminophen (Acetaminophen 325 Mg Tablet) 650 mg PO Q6H PRN PRN Reason: Pain, Mild (Pain Scale 1-3) Last Admin: 06/02/21 21:38 Dose: 650 mg Documented by: REBECCA Amlodipine Besylate (Amlodipine Besylate 5 Mg Tablet) 5 mg PO BEDTIME [facility]; Protocol Last Admin: 06/02/21 21:29 Dose: 5 mg Documented by: REBECCA Apixaban (Apixaban 5 Mg Tablet) 5 mg PO BID [facility] Last Admin: 06/03/21 08:01 Dose: 5 mg Documented by: EBONIE Calcium Carbonate/Cholecalciferol (Calcium + Vitamin D 250 Mg Tablet) 500 mg PO DAILY [facility] Last Admin: 06/03/21 08:01 Dose: 500 mg Documented by: EBONIE Cyanocobalamin (Cyanocobalamin (Vitamin B-12) 1,000 Mcg/Ml Vial) 1,000 mcg IM Q30D [facility] Dextrose (Dextrose 50 % 25 Gm/50 Ml Vial) 25 gm IVPUSH Q15M PRN; Protocol PRN Reason: per Hypoglycemia Standing Ord. Docusate Sodium (Docusate Sodium 100 Mg Capsule) 100 mg PO DAILY [facility] Last Admin: 06/03/21 08:01 Dose: 100 mg Documented by: EBONIE Gabapentin (Gabapentin 400 Mg Capsule) 400 mg PO BID [facility] Last Admin: 06/03/21 08:01 Dose: 400 mg Documented by: EBONIE Glucose (Glucose Gel 15 Gm Gel..Gram.) 15 gm PO Q15M PRN; Protocol PRN Reason: per Hypoglycemia Standing Ord. Ceftriaxone Sodium 1 gm/ (Sodium Chloride) 50 mls @ 100 mls/hr IV Q24H [facility] Last Infusion: 06/02/21 14:11 Dose: 0 mls/hr Documented by: WILBERT Insulin Glargine (Insulin Glargine,Hum.Rec.Anlog 100 Unit/Ml 10 Ml Vial) 70 unit SUBCUT BEDTIME [facility] Last Admin: 06/02/21 21:29 Dose: 70 unit Documented by: REBECCA Insulin Human Lispro (Insulin Lispro 100 Unit/Ml 3 Ml Vial) 12 unit SUBCUT DAILY@1200 [facility] Last Admin: 06/02/21 17:45 Dose: 12 unit Documented by: WILBERT Insulin Human Lispro (Insulin Lispro 100 Unit/Ml 3 Ml Vial) 0 unit SUBCUT QIDACHS [facility]; Protocol Last Admin: 06/03/21 08:01 Dose: 4 unit Documented by: EBONIE Insulin Human Lispro (Insulin Lispro 100 Unit/Ml 3 Ml Vial) 10 unit SUBCUT DAILY@1800 [facility] Last Admin: 06/02/21 17:46 Dose: 10 unit Documented by: WILBERT Magnesium Hydroxide (Milk Of Magnesia 30 Ml Oral.Susp) 30 ml PO BEDTIME PRN PRN Reason: Constipation Metoprolol Succinate (Metoprolol Succinate Er 12.5 Mg Halftab.Er.24h) 12.5 mg PO DAILY [facility]; Protocol Last Admin: 06/03/21 08:08 Dose: 12.5 mg Documented by: EBONIE Multivitamins/Vitamin C (Multivitamin Tablet) 1 tab PO DAILY [facility] Last Admin: 06/03/21 08:01 Dose: 1 tab Documented by: EBONIE Ondansetron HCl (Ondansetron Hcl 4 Mg/2 Ml Vial) 4 mg IVPUSH Q8H PRN PRN Reason: Nausea and Vomiting Pharmacy Consult (Consult Rx Perform Med Rec) 1 each MISCELLANE ONCE PRN PRN Reason: Consult order Sodium Chloride (0.9 % Sodium Chloride Flush 3 Ml Syringe) 3 ml IVFLUSH QSHIFT [facility] Last Admin: 06/03/21 08:01 Dose: 3 ml Documented by: EBONIE Tamsulosin HCl (Tamsulosin Hcl 0.4 Mg Capsule) 0.8 mg PO BEDTIME [facility] Last Admin: 06/02/21 21:29 Dose: 0.8 mg Documented by: REBECCA Valsartan (Valsartan 160 Mg Tablet) 160 mg PO DAILY [facility] Last Admin: 06/03/21 08:08 Dose: 160 mg Documented by: EBONIE Vitamin D (Cholecalciferol (Vitamin D3) 25 Mcg Tablet) 25 mcg PO DAILY [facility] Last Admin: 06/03/21 08:01 Dose: 25 mcg Documented by: EBONIE Labs CBC & Chem 7: 06/02/21 05:55 06/02/21 05:55 Labs: Laboratory Results - last 24 hr 06/02/21 06/02/21 06/03/21 16:20 20:55 07:30 POC Glucose 217 H 236 H 240 H 06/03/21 10:59 POC Glucose 230 H Microbiology Microbiology Results: Microbiology 06/01/21 00:00 Urine Culture - Final Urine Catheterized - Straight Catheter Escherichia fergusonii 06/01/21 11:26 Blood Culture - Preliminary Blood - Venous No growth after 24 hours. 06/01/21 11:26 Blood Culture - Preliminary Blood - Venous No growth after 24 hours. Assessment and Plan (1) Sepsis: Status: Acute (2) Acute UTI: Status: Acute (3) A-fib: Status: Acute Assessment and Plan: 80yo M resident of [facility] with HTN, DM2 presenting with fever found to be septic due to UTI, also new-onset pAF/RVR paroxysmal Atrial Fibrillation low-dose metoprolol succinate for rate control apixaban for anticoagulation - TTE normal EF, cardiology appreciated sepsis complicated by metabolic encephalopathy due to UTI - ceftriaxone d#3, bcx negative, urive culture E. 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
[2021-06-03] MEDS: cefTRIAXone sodium 1 GM in 0.9 % Sodium Chloride 50 ML IV (12:14)
[2021-06-03] MEDS: Insulin Lispro 100 UNIT/ML 3 ML VIAL 12 UNIT SUBCUT (12:15)
[2021-06-03 16:07] LABS: Glucose, Whole Blood 266 mg/dL (60-115)
[2021-06-03] MEDS: Insulin Lispro 100 UNIT/ML 3 ML VIAL 10 UNIT SUBCUT (16:32)
[2021-06-03 20:10] LABS: Glucose, Whole Blood 261 mg/dL (60-115)
[2021-06-03] MEDS: Insulin Glargine,Hum.rec.anlog 100 UNIT/ML 10 ML VIAL 70 UNIT SUBCUT (20:24)
[2021-06-03] MEDS: Tamsulosin HCL 0.4 MG CAPSULE 0.8 MG PO (20:25)
[2021-06-03] MEDS: amLODIPine Besylate 5 MG TABLET PO (20:27)
[2021-06-04 03:18] VITALS: BP 139/62; PULSE 50; RESP 20; TEMP 36.7; O2SAT 98
[2021-06-04 07:46] VITALS: BP 132/63; PULSE 58; RESP 18; TEMP 36.7; O2SAT 97
[2021-06-04 07:52] LABS: Glucose, Whole Blood 124 mg/dL (60-115)
[2021-06-04 08:41] VITALS: BP 132/63; PULSE 67
[2021-06-04] MEDS: Calcium + Vitamin D 250 MG TABLET 500 MG PO (08:41)
[2021-06-04] MEDS: 0.9 % Sodium Chloride Flush 3 ML SYRINGE IVFLUSH (08:41)
[2021-06-04] MEDS: Multivitamin TABLET 1 TAB PO (08:41)
[2021-06-04] MEDS: Metoprolol Succinate ER 12.5 MG HALFTAB.ER.24H PO (08:41)
[2021-06-04] MEDS: Cholecalciferol (Vitamin D3) 25 MCG TABLET PO (08:41)
[2021-06-04] MEDS: Valsartan 160 MG TABLET PO (08:41)
[2021-06-04] MEDS: Docusate Sodium 100 MG CAPSULE PO (08:41)
[2021-06-04] MEDS: Gabapentin 400 MG CAPSULE PO (08:41)
[2021-06-04] MEDS: Apixaban 5 MG TABLET PO (08:41)
[2021-06-04 08:58] LABS: Anion Gap 14 (12-20); Blood Urea Nitrogen 42 mg/dL (9-16); Calcium 8.6 mg/dL (8.4-10.2); Carbon Dioxide 27 mmol/L (22-29); Chloride 107 mmol/L (96-108); Creatinine Clr Calc Pharmacy 61.8; Estimated Glomerular Filt Rate 57; Glucose Fasting 143 mg/dL (60-99); Potassium 3.6 mmol/L (3.3-5.1); Sodium 144 mmol/L (135-145)
--- NOTE | 2021-06-04 10:18 | MHC.CM.PN ---
Addendum entered by Selam Bryan 06/04/21 12:44: Patient will discharge today back to [facility]. [facility] is able to provide the 2 new medications as prescribed. Nurse 2 Nurse report contact info provided. transportation via S has been booked. The patients family has been notified. Addendum entered by Selam Bryan 06/04/21 11:50: Spoke with Mis Nurse non destructive testing supervisor. New medications Eliquis and Ceftin. Waiting telecommunications facility examiner back to confirm [facility] has the meds for the new orders. aware. Original Note: IMM 06/04/21 Male AFIB RVR [facility] called to discuss possible discharge. A VM was left for Margret. A second call was placed. Nursing supervisot not available at this time. Instructed by binder folder operator, to return call within the hour. Will return call to qacertain if he can return to [facility] today,06/04/21.
[2021-06-04 11:17] LABS: Glucose, Whole Blood 320 mg/dL (60-115)
[2021-06-04] MEDS: cefTRIAXone sodium 1 GM in 0.9 % Sodium Chloride 50 ML IV (11:33)
[2021-06-04] MEDS: Insulin Lispro 100 UNIT/ML 3 ML VIAL SUBCUT (11:34)
[2021-06-04] MEDS: Insulin Lispro 100 UNIT/ML 3 ML VIAL 12 UNIT SUBCUT (11:34)
--- NOTE | 2021-06-04 11:43 | PM.DS ---
DS: Providers Provider Date of Service: 06/04/21 Date of admission: 06/01/21 13:39 Primary care physician: Marcelo Sunshine MD Consults: 06/01/21 13:38 Consult to Cardiology Routine Consulting Provider: David Sharma Reason for consultation: new onset afib rvr Has provider been notified: No DS: Diagnosis Discharge Diagnosis (1) Sepsis: Status: Acute (2) Acute UTI: Status: Acute (3) A-fib: Status: Acute DS: Summary Hospital Course Hospital Course: patient was admitted for sepsis complicated by metabolic encephalopathy due to urinary tract infection. Urine culture grew E. fergusoni. he was treated with ceftriaxone, sepsis resolved, Encephalopathy resolved. Blood cultures were negative. He will be discharged on 7 days of Ceftin. course was complicated by paroxysmal atrial fibrillation. He was seen by Cardiology recommended apixaban and low-dose Toprol for rate control. There is also some concern for dysphagia. He was seen by speech therapy recommended regular solids with nectar thick liquids. Patient appears back to baseline will be [facility]. Time Spent with Patient Time attestation: Total time spent providing and/or coordinating discharge services: Discharge coordination time: Greater than 30 minutes Quality: Stroke Does the patient have a stroke diagnosis?: No Physical Exam Vital Signs: Vital Signs: Last Vital Signs Temp 98.0 F 06/04/21 07:46 Pulse 67 06/04/21 08:41 Resp 18 06/04/21 07:46 BP 132/63 06/04/21 08:41 Pulse Ox 97 06/04/21 07:46 Body Mass Index 31.1 General: AO X 3, no acute distress Resp: CTA bilateral, no accessory muscles used CVS: S1,S2,RRR GI: soft, non tender, non distended Neuro: motor grossly intact, alert Psych: appropriate affect, appropriate insight DS: Data Data Completed and Pending Labs on day of discharge: Laboratory Results - last 24 hr 06/03/21 06/03/21 06/04/21 16:01 19:56 07:46 Sodium Potassium Chloride Carbon Dioxide Anion Gap BUN Creatinine Estim Creat Clear Calc Estimated GFR POC Glucose 266 H 261 H 124 H Fasting Glucose Calcium 06/04/21 06/04/21 08:03 11:06 Sodium 144 Potassium 3.6 Chloride 107 Carbon Dioxide 27 Anion Gap 14 BUN 42 H D Creatinine 1.23 Estim Creat Clear Calc 61.8 Estimated GFR 57 POC Glucose 320 H Fasting Glucose 143 H D Calcium 8.6 Preliminary micro results at discharge 06/01/21 11:26 Blood Culture - Preliminary Blood - Venous No growth after 48 hours. 06/01/21 11:26 Blood Culture - Preliminary Blood - Venous No growth after 48 hours. Discharge Plan Discharge Patient Disposition: [facility] Discharge Diagnosis: uti, sepsis Referrals: Marcelo Sunshine MD [Primary Care Provider] - 1 Week Discharge Medications: New Eliquis 5 mg Tablet 5 mg PO BID Qty: 0 RF: 0 metoprolol succinate [Toprol XL] 25 mg tablet extended release 24 hr 12.5 mg PO DAILY Qty: 30 RF: 0 cefuroxime axetil 500 mg tablet 500 mg PO Q12H Qty: 14 RF: 0 Continued acetaminophen 325 mg Tablet 650 mg PO BEDTIME RF: 0 gabapentin 400 mg Capsule 400 mg PO BID RF: 0 cyanocobalamin (vitamin B-12) 1,000 mcg/mL Solution 1,000 mcg IM QMONTH RF: 0 multivitamin with minerals Tablet 1 tab PO DAILY RF: 0 docusate sodium 100 mg Tablet 100 mg PO DAILY RF: 0 calcium carbonate-vitamin D3 [Calcium 500 + D] 500 mg(1,250mg) -200 unit Tablet 1 tab PO DAILY RF: 0 cholecalciferol (vitamin D3) 25 mcg (1,000 unit) Tablet 25 mcg PO DAILY RF: 0 PreserVision AREDS-2 250-90-40-1 mg Capsule 2 tab PO DAILY RF: 0 carboxymethylcellulose sodium 1 % Drops 1 drp OPHTHALMIC (EYE) BID RF: 0 valsartan 160 mg Capsule 160 mg PO DAILY RF: 0 Lantus U-100 Insulin 100 unit/mL Solution 70 unit SUBCUT BEDTIME RF: 0 amlodipine 5 mg Tablet 5 mg PO BEDTIME RF: 0 magnesium hydroxide [Milk of Magnesia] 400 mg/5 mL Suspension 30 ml PO BEDTIME PRN (Reason: Constipation) RF: 0 tamsulosin 0.4 mg Capsule 0.8 mg PO BEDTIME RF: 0 insulin lispro 100 unit/mL Solution 10 unit SUBCUT DAILY@1800 RF: 0 insulin lispro 100 unit/mL Solution 12 unit SUBCUT DAILY@1200 RF: 0 insulin lispro 100 unit/mL Solution 1 sliding scale dose SUBCUT USEASDIRECTD RF: 0 insulin lispro 100 unit/mL Solution 14 unit SUBCUT DAILY@0800 RF: 0 Discontinued aspirin 81 mg Tablet,Chewable 81 mg PO DAILY RF: 0 Discharge Orders: Discharge Order (Routine); Ordered 06/04/21 Ordered By: Devon Rogers Diet: advance to usual diet Activity on Discharge: As tolerated Stand Alone Forms: Patient Portal Discharge page Care Plan Goals: [facility] Concerns: uti Plan of Treatment: ceftin, started on toprol and eliquis for afib, nectart thick liquids to prevent aspiratoin Assessment: see above
[2021-06-04 12:00] VITALS: BP 134/63; PULSE 72; RESP 18; TEMP 36.6; O2SAT 95
[2021-06-04 12:38] LABS: Hematocrit 42.1 % (42.0-52.0); Hemoglobin 13.6 g/dl (14.0-18.0); Mean Corpuscular HGB Conc 32.3 g/dl (31.0-36.0); Mean Corpuscular Hemoglobin 28.6 pg (27.0-33.0); Mean Corpuscular Volume 88.4 fL (80.0-98.0); Mean Platelet Volume 10.7 fL (9.4-12.4); Platelet Count 182 X10*3/uL (160-400); Red Blood Count 4.76 X10*6/uL (4.60-5.80); Red Cell Distribution Width 13.6 % (11.0-16.0); White Blood Count 7.6 X10*3/uL (4.8-10.8)
== END 2021-06-04 13:54 | disposition skilled nursing facility (03) | DRG 871 ==
LOC: HO.ED 12:57 → HO.EDOVER 13:48 → HO.IMC 19:43
PROVIDERS: Family Medicine; Admitting Provider Nurse Practitioner Acute Care; Emergency Provider Emergency Medicine; PCP Internal Medicine Endocrinology, Diabetes & Metabolism; Visit Provider Internal Medicine
DX: A41.9 Sepsis, unspecified organism (principal); G93.41 Metabolic encephalopathy; N39.0 Urinary tract infection, site not specified; F03.90 Unspecified dementia, unspecified severity, without behavioral disturbance, psychotic disturbance, mood disturbance, and anxiety; I48.0 Paroxysmal atrial fibrillation; E11.40 Type 2 diabetes mellitus with diabetic neuropathy, unspecified; Z87.440 Personal history of urinary (tract) infections; Z88.5 Allergy status to narcotic agent; Z88.6 Allergy status to analgesic agent; Z91.040 Latex allergy status; N40.0 Benign prostatic hyperplasia without lower urinary tract symptoms; Z79.4 Long term (current) use of insulin; Z79.01 Long term (current) use of anticoagulants; Z79.899 Other long term (current) drug therapy; Z66 Do not resuscitate
CPT/HCPCS: 36415; 71045; 80048; 80076; 81001; 82947; 83605; 83735; 83880; 84443; 84484; 85025; 85027; 85610; 85730; 87040; 87086; 87088; 87186; 87635; 92610; 93005; 93306; 99285; J0696; Q9957

== ENCOUNTER 2021-07-04 12:04 | Emergency (ER) | payer OTHER, SELFPAY ==
--- NOTE | 2021-07-04 12:09 | ECG_ITS ---
Test Reason : AFIB Blood Pressure : / mmHG Vent. Rate : 091 BPM Atrial Rate : 288 BPM P-R Int : 000 ms QRS Dur : 080 ms QT Int : 348 ms P-R-T Axes : 251 011 051 degrees QTc Int : 428 ms Atrial flutter with variable A-V block Abnormal ECG When compared with ECG of 02-JUN-2021 11:37, Atrial flutter has replaced Sinus rhythm Referred By: Michael Live Electronically Signed By:KAY SANTORO
--- NOTE | 2021-07-04 12:14 | ED.GENADULT ---
HPI - General Adult General Chief complaint: General Medical Stated complaint: tachycardia Time Seen by Provider: 07/04/21 12:09 Source: patient Mode of arrival: EMS Limitations: no limitations History of Present Illness HPI narrative: 80 year old male past medical history significant for paroxysmal atrial fibrillation on eliquis, HTN and dementia presents [facility] the ED via [facility] with [facility]. [facility] by [facility]cardic and he was recently diagnosed with atrial fibrialation. Patient is asymptomatic and tells me he does not know why he is here. He is currently on Eliquis. He denies chest pain, shortness of breath, fevers, chills, nausea, vomiting, dysuria, abdominal pain, weakness, dizziness. Onset (ago): day(s) (1) Relieving factors: none Exacerbating factors: none Associated symptoms: denies other symptoms Treatments prior to arrival: none Related Data Home Medications Medication Instructions Recorded Confirmed acetaminophen 325 mg tablet 650 mg PO BEDTIME 06/01/21 06/01/21 amlodipine 5 mg tablet 5 mg PO BEDTIME 06/01/21 06/01/21 calcium carbonate 500 mg-vitamin 1 tab PO DAILY 06/01/21 06/01/21 D3 5 mcg (200 unit) tablet (Calcium 500 + D) carboxymethylcellulose sodium 1 % 1 drp OPHTHALMIC (EYE) BID 06/01/21 06/01/21 eye drops cholecalciferol (vitamin D3) 25 25 mcg PO DAILY 06/01/21 06/01/21 mcg (1,000 unit) tablet cyanocobalamin (vitamin B-12) 1,000 mcg IM QMONTH 06/01/21 06/01/21 1,000 mcg/mL injection solution docusate sodium 100 mg tablet 100 mg PO DAILY 06/01/21 06/01/21 gabapentin 400 mg capsule 400 mg PO BID 06/01/21 06/01/21 insulin glargine 100 unit/mL 70 unit SUBCUT BEDTIME 06/01/21 06/01/21 subcutaneous solution (Lantus U-100 Insulin) insulin lispro 100 unit/mL 1 sliding scale dose SUBCUT 06/01/21 06/01/21 subcutaneous solution USEASDIRECTD insulin lispro 100 unit/mL 10 unit SUBCUT DAILY@1800 06/01/21 06/01/21 subcutaneous solution insulin lispro 100 unit/mL 12 unit SUBCUT DAILY@1200 06/01/21 06/01/21 subcutaneous solution insulin lispro 100 unit/mL 14 unit SUBCUT DAILY@0800 06/01/21 06/01/21 subcutaneous solution magnesium hydroxide 400 mg/5 mL 30 ml PO BEDTIME PRN 06/01/21 06/01/21 oral suspension (Milk of Magnesia) multivitamin with minerals 1 tab PO DAILY 06/01/21 06/01/21 tamsulosin 0.4 mg capsule 0.8 mg PO BEDTIME 06/01/21 06/01/21 valsartan 160 mg capsule 160 mg PO DAILY 06/01/21 06/01/21 vit C 250 mg-vit E 90 mg-zinc 40 2 tab PO DAILY 06/01/21 06/01/21 mg-copper 1 [id number] capsule (PreserVision AREDS-2) Previous Rx's Medication Instructions Recorded apixaban 5 mg tablet (Eliquis) 5 mg PO BID #0 tab 06/04/21 cefuroxime axetil 500 mg tablet 500 mg PO Q12H #14 tab 06/04/21 metoprolol succinate 25 mg 12.5 mg PO DAILY #30 tab 06/04/21 tablet,extended release 24 hr (Toprol XL) Allergies Allergy/AdvReac Type Severity Reaction Status Date / Time acetaminophen [Percocet] Allergy Unknown vomiting Verified 09/08/15 00:00 latex [LATEX] Allergy Unknown RASH Unverified 03/27/20 16:04 oxycodone [Percocet] Allergy Unknown vomiting Verified 09/08/15 00:00 latex Allergy Unknown over long Uncoded 09/08/15 00:00 period of time Review of Systems Review of Systems: Constitutional : No Weight loss, No Fever, No Chills, No Fatigue, No Malaise ENT/Mouth : No sore throat, No Rhinorrhea Eyes: No Eye Pain, No Swelling, No Redness Cardiovascular : No Chest Pain, No SOB, No Dyspnea on Exertion, No Orthopnea, No Edema, No Palpitations Respiratory : No Cough, No Sputum, No Wheezing Gastrointestinal : No Nausea, No Vomiting, No Diarrhea, No Constipation, No abdominal Pain, No Hematochezia, No Melena Genitourinary : No Dysuria, No Urinary Frequency, No Hematuria, Musculoskeletal : No joint pain, No Myalgias, No Joint Swelling Skin : No Skin Lesions, No rash Neuro : No Weakness, No Numbness, No Dizziness, No Headache All other systems reviewed and are negative Yes all other systems are reviewed and are negative [facility] Past Medical History Attestation statement: The following information was validated with the patient. 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 Personal history of COVID-19 Personal history of other malignant neoplasm of skin Spondylosis without myelopathy or radiculopathy, 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, unspecified Type 2 diabetes mellitus without complications Unspecified osteoarthritis, unspecified site Social History Social History Household Members: None and Other Housing: Halfway Patient Tobacco Use Status: Tobacco use Unknown Advance Directives: Yes Advance Directives on File: Yes Advance Directives Date on File: 11/17/20 service: Yes Current occupational status: retired Physical Exam Vital Signs: Vital Signs: Last Vital Signs Temp 98.0 F 07/04/21 16:00 Pulse 78 07/04/21 16:00 Resp 18 07/04/21 16:00 BP 135/64 07/04/21 16:00 Pulse Ox 96 07/04/21 16:00 BMI result Body Mass Index 40.1 VSS Appearance: Alert.? Oriented X3.? No acute distress.? Head: Normocephalic, atraumatic, no step-offs or deformities Eyes: Pupils equal, round and reactive to light.? ENT: Pharynx normal.? Neck: Normal inspection.? Neck supple.? CVS: Rapid irregularly irregular rythem.? Pulses normal.? Respiratory: No respiratory distress.? Breath sounds normal.? Abdomen: Soft and nontender.? Skin: Skin warm and dry.? Normal skin color.? Normal skin turgor.? Extremities: 2+ nonpitting edema.? No calf ttp. 5/5 strength to bilateral upper and lower extremities Back: No midline tenderness, no C-spine tenderness, full range of motion, no CVA tenderness bilaterally Neuro: Oriented X 3.? No motor deficit.? No sensory deficit. Course Reevaluation(s) Reevaluation #1: Negative troponin. Patient has remained in atrial fibrillation the entire time with rate between 70s-90s. EKG not concerning for ischemia. Patient is asymptomatic, not having chest pain or palpitations. At this time I feel comfortable with discharge [facility]. Time: 17:16 Medical Decision Making MDM Narrative Medical decision making narrative: 1225 80 yo M pmhx a-fib (on eliquis), HTN, dementia presents to the ED with EMS who tells us that the [facility] was concered about patients tachycardia. HR noted to be in the high 90's. Patient has no complaints. Physical exam significant for a rapid irregularly irregular rhythm, likely atrial fibrillation. Lungs are clear. Abdomen soft nontender nondistended. 2+ nonpitting edema to the lower extremities. VSS. A&O X3. No focal neuro deficits. Plan- trop, ekg, basic labs, cardiac monitoring. Medical Records Medical records reviewed: Yes I reviewed the patient's medical records. Lab Data Lab results reviewed: Yes I reviewed the patient's lab results. Result diagrams: 07/04/21 12:39 07/04/21 12:39 Labs: Lab Results 07/04/21 12 12 Range/Units 12:39 12:39 12:39 WBC 7.2 (4.8-10.8) X10*3/uL RBC 4.87 (4.60-5.80) X10*6/uL Hgb 14.2 (14.0-18.0) g/dl Hct 42.5 (42.0-52.0) % MCV 87.3 (80.0-98.0) fL MCH 29.2 (27.0-33.0) pg MCHC 33.4 (31.0-36.0) g/dl RDW 13.4 (11.0-16.0) % Plt Count 162 (160-400) X10*3/uL MPV 10.1 (9.4-12.4) fL Immature Gran % (Auto) 0.3 (0.0-0.4) % Neut % (Auto) 64.0 (45-73) % Lymph % (Auto) 26.6 (20-40) % [place] % (Auto) 6.7 (2-11) % Eos % (Auto) 2.0 (0-4) % Baso % (Auto) 0.4 (0-2) % Lymph # (Auto) 1.9 (1.2-4.9) X10*3/uL [place] # (Auto) 0.5 (0.1-1.2) X10*3/uL Eos # (Auto) 0.1 (0.0-0.4) X10*3/uL Baso # (Auto) 0.0 (0.0-0.2) X10*3/uL Abs Immat Gran (auto) 0.02 (0.00-0.03) X10*3/uL Absolute Neuts (auto) 4.6 (2.0-8.3) x10*3/uL Absolute Nucleated RBC 0.000 (0.0-0.012) X10*3/uL Nucleated RBC % (auto) 0.0 (0.0-0.2) /100WBC Sodium 139 (135-145) mmol/L Potassium 4.5 D (3.3-5.1) mmol/L Chloride 102 (96-108) mmol/L Carbon Dioxide 30 H (22-29) mmol/L Anion Gap 12 (12-20) BUN 20 H (9-16) mg/dL Creatinine 1.26 (0.5-1.4) mg/dL Estim Creat Clear Calc 68.4 Estimated GFR 55 Random Glucose 264 H D (60-115) mg/dL Calcium 9.5 D (8.4-10.2) mg/dL Magnesium 1.9 (1.6-2.6) mg/dL Total Bilirubin 0.6 (0.0-1.0) mg/dL AST 20 D (5-37) U/L ALT 43 H (0-40) U/L Alkaline Phosphatase 103 (39-117) U/L Troponin I High Sens 8.6 (<3.5-35.0) ng/L Total Protein 6.1 L (6.5-8.0) g/dL Albumin 3.7 (3.5-5.0) g/dL COVID-19 (NARCISO) (Negative) COVID-19 Clin Com 07/04/21 07/04/21 07/04/21 Range/Units 12:39 14:21 16:12 WBC (4.8-10.8) X10*3/uL RBC (4.60-5.80) X10*6/uL Hgb (14.0-18.0) g/dl Hct (42.0-52.0) % MCV (80.0-98.0) fL MCH (27.0-33.0) pg MCHC (31.0-36.0) g/dl RDW (11.0-16.0) % Plt Count (160-400) X10*3/uL MPV (9.4-12.4) fL Immature Gran % (Auto) (0.0-0.4) % Neut % (Auto) (45-73) % Lymph % (Auto) (20-40) % [place] % (Auto) (2-11) % Eos % (Auto) (0-4) % Baso % (Auto) (0-2) % Lymph # (Auto) (1.2-4.9) X10*3/uL [place] # (Auto) (0.1-1.2) X10*3/uL Eos # (Auto) (0.0-0.4) X10*3/uL Baso # (Auto) (0.0-0.2) X10*3/uL Abs Immat Gran (auto) (0.00-0.03) X10*3/uL Absolute Neuts (auto) (2.0-8.3) x10*3/uL Absolute Nucleated RBC (0.0-0.012) X10*3/uL Nucleated RBC % (auto) (0.0-0.2) /100WBC Sodium (135-145) mmol/L Potassium (3.3-5.1) mmol/L Chloride (96-108) mmol/L Carbon Dioxide (22-29) mmol/L Anion Gap (12-20) BUN (9-16) mg/dL Creatinine (0.5-1.4) mg/dL Estim Creat Clear Calc Estimated GFR Random Glucose (60-115) mg/dL Calcium (8.4-10.2) mg/dL Magnesium (1.6-2.6) mg/dL Total Bilirubin (0.0-1.0) mg/dL AST (5-37) U/L ALT (0-40) U/L Alkaline Phosphatase (39-117) U/L Troponin I High Sens 10.8 10.2 (<3.5-35.0) ng/L Total Protein (6.5-8.0) g/dL Albumin (3.5-5.0) g/dL COVID-19 ([facility]ARCISO) Negative (Negative) COVID-19 Clin Com See Note ECG Data Attestation: I personally reviewed and interpreted this ECG as follows: Prior ECG tracings: available for review Interpretation: Ventricular rate of 91, QRS normal, QT/QTC normal. EKG shows atrial flutter with variable AV block. When compared to EKG from June 02, 2021 cardiology notes that there are now ST elevations in the inferior leads. No acute ischemia Critical Care Time Critical Care Time Critical Care Time: No Discharge Plan Discharge Clinical Impression: Atrial flutter, Tachycardia Patient Disposition: [facility] Instructions: Atrial Flutter (ED), Tachycardia (ED) Additional Instructions: Take your medications as prescribed. If you were prescribed antibiotics today, it is important that you take your medication to their entirety, do not skip any doses, do not finish them early. Follow-up with your primary care provider this week. Return to the emergency department with new or worsening symptoms. In case of emergency call 911 Prescriptions: No Action acetaminophen 325 mg Tablet 650 mg PO BEDTIME RF: 0 gabapentin 400 mg Capsule 400 mg PO BID RF: 0 cyanocobalamin (vitamin B-12) 1,000 mcg/mL Solution 1,000 mcg IM QMONTH RF: 0 multivitamin with minerals Tablet 1 tab PO DAILY RF: 0 docusate sodium 100 mg Tablet 100 mg PO DAILY RF: 0 calcium carbonate-vitamin D3 [Calcium 500 + D] 500 mg(1,250mg) -200 unit Tablet 1 tab PO DAILY RF: 0 cholecalciferol (vitamin D3) 25 mcg (1,000 unit) Tablet 25 mcg PO DAILY RF: 0 PreserVision AREDS-2 250-90-40-1 mg Capsule 2 tab PO DAILY RF: 0 carboxymethylcellulose sodium 1 % Drops 1 drp OPHTHALMIC (EYE) BID RF: 0 valsartan 160 mg Capsule 160 mg PO DAILY RF: 0 Lantus U-100 Insulin 100 unit/mL Solution 70 unit SUBCUT BEDTIME RF: 0 amlodipine 5 mg Tablet 5 mg PO BEDTIME RF: 0 magnesium hydroxide [Milk of Magnesia] 400 mg/5 mL Suspension 30 ml PO BEDTIME PRN (Reason: Constipation) RF: 0 tamsulosin 0.4 mg Capsule 0.8 mg PO BEDTIME RF: 0 insulin lispro 100 unit/mL Solution 10 unit SUBCUT DAILY@1800 RF: 0 insulin lispro 100 unit/mL Solution 12 unit SUBCUT DAILY@1200 RF: 0 insulin lispro 100 unit/mL Solution 1 sliding scale dose SUBCUT USEASDIRECTD RF: 0 insulin lispro 100 unit/mL Solution 14 unit SUBCUT DAILY@0800 RF: 0 Eliquis 5 mg Tablet 5 mg PO BID Qty: 0 RF: 0 metoprolol succinate [Toprol XL] 25 mg tablet extended release 24 hr 12.5 mg PO DAILY Qty: 30 RF: 0 cefuroxime axetil 500 mg tablet 500 mg PO Q12H Qty: 14 RF: 0 Referrals: Marcelo Sunshine MD [Primary Care Provider] - 2 days David Sharma MD [Physician] - 1 week
[2021-07-04 12:18] VITALS: BP 106/48; BP 118/76; PULSE 70; PULSE 96; RESP 17; TEMP 36.7; O2SAT 95; BMI 40.1
--- NOTE | 2021-07-04 12:40 | PC.NURSE ---
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
[2021-07-04 12:47] LABS: MANUAL DIFF FLAG NO
[2021-07-04 12:49] LABS: Basophils Percent Auto 0.4 % (0-2); Eosinophils Absolute Auto 0.1 X10*3/uL (0.0-0.4); Hematocrit 42.5 % (42.0-52.0); Hemoglobin 14.2 g/dl (14.0-18.0); Imm Gran Abs Auto 0.02 X10*3/uL (0.00-0.03); Imm Gran Pct Auto 0.3 % (0.0-0.4); Lymphocytes Absolute Auto 1.9 X10*3/uL (1.2-4.9); Lymphocytes Percent Auto 26.6 % (20-40); Mean Corpuscular HGB Conc 33.4 g/dl (31.0-36.0); Mean Corpuscular Hemoglobin 29.2 pg (27.0-33.0); Mean Corpuscular Volume 87.3 fL (80.0-98.0); Mean Platelet Volume 10.1 fL (9.4-12.4); Monocytes Absolute Auto 0.5 X10*3/uL (0.1-1.2); Monocytes Percent Auto 6.7 % (2-11); Neutrophils Absolute Auto 4.6 x10*3/uL (2.0-8.3); Platelet Count 162 X10*3/uL (160-400); Red Blood Count 4.87 X10*6/uL (4.60-5.80); Red Cell Distribution Width 13.4 % (11.0-16.0); White Blood Count 7.2 X10*3/uL (4.8-10.8)
[2021-07-04 13:06] LABS: Alanine Aminotransferase 43 U/L (0-40); Albumin Level 3.7 g/dL (3.5-5.0); Alkaline Phosphatase 103 U/L (39-117); Anion Gap 12 (12-20); Aspartate Amino Transferase 20 U/L (5-37); Bilirubin Total 0.6 mg/dL (0.0-1.0); Blood Urea Nitrogen 20 mg/dL (9-16); COVID-19 Test Negative (Negative); Calcium 9.5 mg/dL (8.4-10.2); Carbon Dioxide 30 mmol/L (22-29); Chloride 102 mmol/L (96-108); Creatinine Clr Calc Pharmacy 68.4; Estimated Glomerular Filt Rate 55; Glucose Random 264 mg/dL (60-115); IDNOW Serial# 08D9AD1C; Magnesium 1.9 mg/dL (1.6-2.6); Potassium 4.5 mmol/L (3.3-5.1); Sodium 139 mmol/L (135-145); Total Protein 6.1 g/dL (6.5-8.0)
[2021-07-04 13:09] LABS: Troponin-I High Sensitivity 8.6 ng/L (<3.5-35.0)
[2021-07-04 14:00] VITALS: BP 130/73; PULSE 71; RESP 17; TEMP 36.7; O2SAT 95
--- NOTE | 2021-07-04 14:22 | PC.NURSE ---
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
[2021-07-04 14:46] LABS: Troponin-I High Sensitivity 10.8 ng/L (<3.5-35.0)
[2021-07-04 16:00] VITALS: BP 135/64; PULSE 78; RESP 18; TEMP 36.7; O2SAT 96
--- NOTE | 2021-07-04 16:05 | PC.NURSE ---
patient a&o, no c/o pain or discomfort, vss, will continue to monitor.
--- NOTE | 2021-07-04 16:23 | PC.NURSE ---
repeat labs drawn per order
[2021-07-04 16:53] LABS: Troponin-I High Sensitivity 10.2 ng/L (<3.5-35.0)
[2021-07-04 17:38] VITALS: BP 100/58; PULSE 79; RESP 17; TEMP 36.6; O2SAT 96
--- NOTE | 2021-07-04 17:41 | PC.NURSE ---
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
[2021-07-04 19:35] VITALS: BP 155/81; PULSE 86; RESP 16; O2SAT 96
[2021-07-04 23:05] VITALS: BP 135/84; PULSE 85; RESP 16; O2SAT 96
== END 2021-07-04 23:00 | disposition skilled nursing facility (03) ==
PROVIDERS: Physician Assistant; Emergency Provider Emergency Medicine Emergency Medical Services; PCP Internal Medicine Endocrinology, Diabetes & Metabolism
DX: I48.92 Unspecified atrial flutter (principal); R00.0 Tachycardia, unspecified; I10 Essential (primary) hypertension; E11.9 Type 2 diabetes mellitus without complications; I48.0 Paroxysmal atrial fibrillation; F03.90 Unspecified dementia, unspecified severity, without behavioral disturbance, psychotic disturbance, mood disturbance, and anxiety; Z79.01 Long term (current) use of anticoagulants; Z79.4 Long term (current) use of insulin; Z20.822 Contact with and (suspected) exposure to COVID-19
CPT/HCPCS: 36415; 80053; 83735; 84484; 85025; 87635; 93005; 96361; 96374; 99284

== ENCOUNTER 2021-07-05 13:45 | Emergency (ER) | payer OTHER, SELFPAY ==
--- NOTE | ~2021-07-05 | XR_ITS ---
EXAMINATION: XR CHEST CLINICAL INFORMATION: Generalized weakness COMPARISON: June 01, 2021 TECHNIQUE: AP portable view of the chest was obtained. FINDINGS: There is some stable density seen at the left base which may be related to atelectasis or scarring and less likely pneumonitis. Heart normal size. No evidence of pulmonary edema. No pneumothorax or pleural effusion. XR/XR chest 1V IMPRESSION: Left lower lobe disease which was present on study of June 01, 2021.
--- NOTE | 2021-07-05 14:01 | ECG_ITS ---
Test Reason : ABD PAIN Blood Pressure : / mmHG Vent. Rate : 077 BPM Atrial Rate : 077 BPM P-R Int : 200 ms QRS Dur : 084 ms QT Int : 388 ms P-R-T Axes : 026 -03 044 degrees QTc Int : 439 ms Normal sinus rhythm with sinus arrhythmia Normal ECG When compared with ECG of 04-JUL-2021 12:15, Sinus rhythm has replaced Atrial flutter ST no longer elevated in Inferior leads Referred By: Morenita Dee Electronically Signed By:Aristeo Shields
[2021-07-05 14:04] VITALS: BP 106/66; PULSE 81; O2SAT 96
--- NOTE | 2021-07-05 14:04 | ED.NAVMDI ---
HPI - Nausea/Vomiting/Diarrhea General Chief complaint: Nausea/Vomiting/Diarrhea <ROSARIO You - Last Filed: 07/05/21 18:42> Stated complaint: WEAKNESS <ROSARIO You - Last Filed: 07/05/21 18:42> Time Seen by Provider: 07/05/21 13:49 <ROSARIO You - Last Filed: 07/05/21 18:42> Source: patient and EMS <ROSARIO You - Last Filed: 07/05/21 18:42> Mode of arrival: EMS <ROSARIO You Last Filed: 07/05/21 18:42> History of Present Illness HPI Narrative: 80-year-old male with a past medical history of proximal AFib on Eliquis, HTN, dementia, presenting to the ED from [facility] complaining of nausea, diarrhea and generalized fatigue/ weakness since this morning. Of note patient was seen our ED yesterday for asymptomatic tachycardia, workup unremarkable. Denies abdominal pain, vomiting, dysuria / hematuria, CP/SOB, melena /bloody BMs, cough <ROSARIO You - Last Filed: 07/05/21 18:42> MD elicited complaint: nausea and diarrhea <ROSARIO You Last Filed: 07/05/21 18:42> Onset (ago): hour(s) <ROSARIO You - Last Filed: 07/05/21 18:42> Related Data Home medications: Home Medications Medication Instructions Recorded Confirmed acetaminophen 325 mg tablet 650 mg PO BEDTIME 06/01/21 06/01/21 amlodipine 5 mg tablet 5 mg PO BEDTIME 06/01/21 06/01/21 calcium carbonate 500 mg-vitamin 1 tab PO DAILY 06/01/21 06/01/21 D3 5 mcg (200 unit) tablet (Calcium 500 + D) carboxymethylcellulose sodium 1 % 1 drp OPHTHALMIC (EYE) BID 06/01/21 06/01/21 eye drops cholecalciferol (vitamin D3) 25 25 mcg PO DAILY 06/01/21 06/01/21 mcg (1,000 unit) tablet cyanocobalamin (vitamin B-12) 1,000 mcg IM QMONTH 06/01/21 06/01/21 1,000 mcg/mL injection solution docusate sodium 100 mg tablet 100 mg PO DAILY 06/01/21 06/01/21 gabapentin 400 mg capsule 400 mg PO BID 06/01/21 06/01/21 insulin glargine 100 unit/mL 70 unit SUBCUT BEDTIME 06/01/21 06/01/21 subcutaneous solution (Lantus U-100 Insulin) insulin lispro 100 unit/mL 1 sliding scale dose SUBCUT 06/01/21 06/01/21 subcutaneous solution USEASDIRECTD insulin lispro 100 unit/mL 10 unit SUBCUT DAILY@1800 06/01/21 06/01/21 subcutaneous solution insulin lispro 100 unit/mL 12 unit SUBCUT DAILY@1200 06/01/21 06/01/21 subcutaneous solution insulin lispro 100 unit/mL 14 unit SUBCUT DAILY@0800 06/01/21 06/01/21 subcutaneous solution magnesium hydroxide 400 mg/5 mL 30 ml PO BEDTIME PRN 06/01/21 06/01/21 oral suspension (Milk of Magnesia) multivitamin with minerals 1 tab PO DAILY 06/01/21 06/01/21 tamsulosin 0.4 mg capsule 0.8 mg PO BEDTIME 06/01/21 06/01/21 valsartan 160 mg capsule 160 mg PO DAILY 06/01/21 06/01/21 vit C 250 mg-vit E 90 mg-zinc 40 2 tab PO DAILY 06/01/21 06/01/21 mg-copper 1 [id number] capsule (PreserVision AREDS-2) Previous Rx's Medication Instructions Recorded apixaban 5 mg tablet (Eliquis) 5 mg PO BID #0 tab 06/04/21 cefuroxime axetil 500 mg tablet 500 mg PO Q12H #14 tab 06/04/21 metoprolol succinate 25 mg 12.5 mg PO DAILY #30 tab 06/04/21 tablet,extended release 24 hr (Toprol XL) <ROSARIO You - Last Filed: 07/05/21 18:42> Allergies/Adverse reactions: Allergies Allergy/AdvReac Type Severity Reaction Status Date / Time acetaminophen [Percocet] Allergy Unknown vomiting Verified 09/08/15 00:00 latex [LATEX] Allergy Unknown RASH Unverified 03/27/20 16:04 oxycodone [Percocet] Allergy Unknown vomiting Verified 09/08/15 00:00 latex Allergy Unknown over long Uncoded 09/08/15 00:00 period of time <ROSARIO You - Last Filed: 07/05/21 18:42> Review of Systems Review of Systems: Constitutional: No Fever, No Chills, + Fatigue, No Malaise ENT/Mouth: No Ear Pain, No Nasal Congestion, No Hoarseness, No sore throat, No Rhinorrhea Eyes: No Eye Pain, No Swelling, No Redness, No Discharge, No Vision Changes Cardiovascular: No Chest Pain, No SOB, No Edema, No Palpitations Respiratory: No Cough, No Wheezing, No Dyspnea Gastrointestinal: No Nausea, No Vomiting, +Diarrhea, No Constipation, No Abdominal pain, No Hematochezia, No Melena Genitourinary: No Dysuria, No Urinary Frequency, No Hematuria, No Flank Pain, No Urinary Flow Changes, No Hesitancy Musculoskeletal: No joint pain, No Myalgias, No Joint Swelling Skin: No Skin Lesions, No rash Neuro: + Weakness, No Numbness, No Loss of Consciousness, No Dizziness, No Headache <ROSARIO You - Last Filed: 07/05/21 18:42> Yes all other systems are reviewed and are negative <ROSARIO You - Last Filed: 07/05/21 18:42> FOR[facility]LY [facility] Past Medical History Attestation statement: The following information was validated with the patient. 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 Personal history of COVID-19 Personal history of other malignant neoplasm of skin Spondylosis without myelopathy or radiculopathy, 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, unspecified Type 2 diabetes mellitus without complications Unspecified osteoarthritis, unspecified site <ROSARIO You Last Filed: 07/05/21 18:42> Social History Social History: Social History Household Members: None and Other Housing: [facility] Alcohol intake: never Patient Tobacco Use Status: Tobacco use Unknown Smoked in Last 30 Days: No Use of substances other than those prescribed or required for medical reasons: No Advance Directives: Yes Advance Directives on File: Yes Advance Directives Date on File: 11/17/20 service: Yes Current occupational status: retired <ROSARIO You - Last Filed: 07/05/21 18:42> Physical Exam Vital Signs: Vital Signs: Last Vital Signs Temp 98.3 F 07/05/21 20:03 Pulse 77 07/05/21 20:03 Resp 20 07/05/21 20:03 BP 131/63 07/05/21 20:03 Pulse Ox 96 07/05/21 20:03 BMI result Body Mass Index 40.6 <ROSARIO You - Last Filed: 07/05/21 18:42> Vital Signs: Last Vital Signs Temp 98.3 F 07/05/21 20:03 Pulse 77 07/05/21 20:03 Resp 20 07/05/21 20:03 BP 131/63 07/05/21 20:03 Pulse Ox 96 07/05/21 20:03 BMI result Body Mass Index 40.6 <ROSARIO Prasad - Last Filed: 07/05/21 21:53> Const: General: cooperative, healthy appearing and no acute distress <ROSARIO You - Last Filed: 07/05/21 18:42> Orientation/consciousness: patient oriented x3 <ROSARIO You - Last Filed: 07/05/21 18:42> Limitations: no limitations <ROSARIO You - Last Filed: 07/05/21 18:42> HENMT: Head: Yes normal to inspection and Yes atraumatic <ROSARIO You - Last Filed: 07/05/21 18:42> Ears: hearing grossly normal bilaterally <ROSARIO You - Last Filed: 07/05/21 18:42> General nose exam: Normal external nose present <ROSARIO You - Last Filed: 07/05/21 18:42> Face and sinus: Yes normal facial exam <ROSARIO You - Last Filed: 07/05/21 18:42> Eyes: General: appearance normal, both eyes and all related structures <Morenita Flynnjazmin [place] - Last Filed: 07/05/21 18:42> Pupils: Equal, round and reactive pupils present <Morenita Flynnoste, [place] - Last Filed: 07/05/21 18:42> EOM: EOMs intact bilaterally <Morenita Leila, [place] - Last Filed: 07/05/21 18:42> Neck: Neck: Yes normal visual inspection and Yes no meningeal signs <Morenita Leila, [place] - Last Filed: 07/05/21 18:42> Resp: Effort & Inspection: normal respiratory effort <Morenita Leila [place] - Last Filed: 07/05/21 18:42> Auscultation: clear to auscultation bilaterally, no rales, no rhonchi and no wheezes <Morenita Leila [place] - Last Filed: 07/05/21 18:42> Cardio: Rate: regular rate <Morenita Leila [place] - Last Filed: 07/05/21 18:42> Heart sounds: S1 normal heart sound present and S2 normal heart sound present <Morenita Flynnjazmin [place] - Last Filed: 07/05/21 18:42> GI: Inspection: Yes normal to inspection <Morenita Leila [place] - Last Filed: 07/05/21 18:42> Palpation (GI): Soft to palpation, nontender, no guarding and not rigid <Morenita Leila [place] - Last Filed: 07/05/21 18:42> Skin: Rashes: no rashes <Morenita Leila [place] - Last Filed: 07/05/21 18:42> Wounds: no wounds <Morenita Leila, [facility] Last Filed: 07/05/21 18:42> Neuro: General: patient oriented x3, tone normal, moves all extremities, no meningeal signs, no focal motor deficits and CN's II-XI intact bilaterally <Morenita Leila [place] - Last Filed: 07/05/21 18:42> Cranial nerves: Yes Equal, round and reactive pupils present <Morenita Leila [place] - Last Filed: 07/05/21 18:42> Motor exam (neuro): 5/5 motor strength present throughout <Morenita Leila, [place] - Last Filed: 07/05/21 18:42> Extrem: Other: nonpitting bilateral lower extremity edema <ROSARIO You Last Filed: 07/05/21 18:42> General: Yes no calf tenderness <ROSARIO You Last Filed: 07/05/21 18:42> Course Course Course Narrative: - no leukocytosis. H/H stable. -1626-- LISA with creatinine 1.59 likely from volume loss from diarrhea > will give L IVF and repeat. 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 -1900-- ED care transferred to ROSARIO Hernandez pending repeat troponin and BNP at 6:30 p.m. and UA. Dispo per results <ROSARIO You Last Filed: 07/05/21 18:42> Reevaluation(s) Reevaluation #1: Patient's UA negative for infection. COVID swab negative. Repeat troponin and repeat BMP normal. Negative for SC. Negative for LISA. Patient is safe for discharge <ROSARIO Prasad Last Filed: 07/05/21 21:53> Time: 21:52 <ROSARIO Prasad Last Filed: 07/05/21 21:53> MDM - Nausea/Vomiting/Diarrhea MDM Narrative Medical decision making narrative: 80-year-old male with a past medical history of proximal AFib on Eliquis, HTN, dementia, presenting to the ED from [facility] complaining of nausea, diarrhea and generalized fatigue/ weakness since this morning. On exam VSS, NAD, well appearing, abdomen soft/ nontender, no focal neuro deficits. Concern for dehydration vs metabolic abnormalities vs viral syndrome this COVID-19. Low concern for appendicitis/diverticulitis plan: EKG, labs, UA, IVF, Zofran, re-evaluate, COVID-19 <ROSARIO You Last Filed: 07/05/21 18:42> Differential Diagnosis Differential diagnosis: Likely traveler's diarrhea, food poisoning, gastroenteritis, drug-induced nausea and vomiting and dehydration <ROSARIO You Last Filed: 07/05/21 18:42> Medical Records Attestation: I reviewed the patient's medical records. <ROSARIO You - Last Filed: 07/05/21 18:42> Lab Data Attestation: I reviewed the patient's lab results. <ROSARIO You - Last Filed: 07/05/21 18:42> Result diagrams: : 07/05/21 15:31 07/05/21 18:38 <ROSARIO You - Last Filed: 07/05/21 18:42> Labs: Lab Results 07/05/21 07/05/21 07/05/21 Range/Units 15:31 15:31 15:31 WBC 9.9 (4.8-10.8) X10*3/uL RBC 5.24 (4.60-5.80) X10*6/uL Hgb 14.9 (14.0-18.0) g/dl Hct 46.2 (42.0-52.0) % MCV 88.2 (80.0-98.0) fL MCH 28.4 (27.0-33.0) pg MCHC 32.3 (31.0-36.0) g/dl RDW 13.6 (11.0-16.0) % Plt Count 177 (160-400) X10*3/uL MPV 10.1 (9.4-12.4) fL Immature Gran % (Auto) 0.3 (0.0-0.4) % Neut % (Auto) 75.6 H (45-73) % Lymph % (Auto) 17.1 L (20-40) % [place] % (Auto) 6.0 (2-11) % Eos % (Auto) 0.7 (0-4) % Baso % (Auto) 0.3 (0-2) % Lymph # (Auto) 1.7 (1.2-4.9) X10*3/uL [place] # (Auto) 0.6 (0.1-1.2) X10*3/uL Eos # (Auto) 0.1 (0.0-0.4) X10*3/uL Baso # (Auto) 0.0 (0.0-0.2) X10*3/uL Abs Immat Gran (auto) 0.03 (0.00-0.03) X10*3/uL Absolute Neuts (auto) 7.5 (2.0-8.3) x10*3/uL Absolute Nucleated RBC 0.000 (0.0-0.012) X10*3/uL Nucleated RBC % (auto) 0.0 (0.0-0.2) /100WBC Sodium 140 (135-145) mmol/L Potassium 4.4 (3.3-5.1) mmol/L Chloride 101 (96-108) mmol/L Carbon Dioxide 32 H (22-29) mmol/L Anion Gap 11 L (12-20) BUN 24 H (9-16) mg/dL Creatinine 1.59 H (0.5-1.4) mg/dL Estim Creat Clear Calc 54.6 Estimated GFR 42 Random Glucose 221 H (60-115) mg/dL Calcium 9.8 (8.4-10.2) mg/dL Magnesium 2.0 (1.6-2.6) mg/dL Total Bilirubin 0.5 (0.0-1.0) mg/dL Direct Bilirubin 0.2 (0.0-0.5) mg/dL AST 23 (5-37) U/L ALT 42 H (0-40) U/L Alkaline Phosphatase 104 (39-117) U/L Troponin I High Sens 8.2 (<3.5-35.0) ng/L B-Natriuretic Peptide (<100) pg/mL Total Protein 6.6 (6.5-8.0) g/dL Albumin 3.9 (3.5-5.0) g/dL Lipase 22 (8-78) U/L Urine Color Urine Appearance Urine pH (5.0-8.0) Ur Specific [place] (1.005-1.025) Urine Protein (NEG-TRACE) MG/DL Urine Glucose (UA) (NEG) MG/DL Urine Ketones (NEG) MG/DL Urine Blood (NEG) Urine Nitrite (NEG) Ur Leukocyte Esterase (NEG) Influenza Type A (PCR) (Negative) Influenza Type B (PCR) (Negative) RSV RNA Qual (PCR) (Negative) SARS-CoV-2 RNA (RT-PCR) (Negative) 07/05/21 07/05/21 07/05/21 Range/Units 15:31 15:35 18:38 WBC (4.8-10.8) X10*3/uL RBC (4.60-5.80) X10*6/uL Hgb (14.0-18.0) g/dl Hct (42.0-52.0) % MCV (80.0-98.0) fL MCH (27.0-33.0) pg MCHC (31.0-36.0) g/dl RDW (11.0-16.0) % Plt Count (160-400) X10*3/uL MPV (9.4-12.4) fL Immature Gran % (Auto) (0.0-0.4) % Neut % (Auto) (45-73) % Lymph % (Auto) (20-40) % [place] % (Auto) (2-11) % Eos % (Auto) (0-4) % Baso % (Auto) (0-2) % Lymph # (Auto) (1.2-4.9) X10*3/uL [place] # (Auto) (0.1-1.2) X10*3/uL Eos # (Auto) (0.0-0.4) X10*3/uL Baso # (Auto) (0.0-0.2) X10*3/uL Abs Immat Gran (auto) (0.00-0.03) X10*3/uL Absolute Neuts (auto) (2.0-8.3) x10*3/uL Absolute Nucleated RBC (0.0-0.012) X10*3/uL Nucleated RBC % (auto) (0.0-0.2) /100WBC Sodium (135-145) mmol/L Potassium (3.3-5.1) mmol/L Chloride (96-108) mmol/L Carbon Dioxide (22-29) mmol/L Anion Gap (12-20) BUN (9-16) mg/dL Creatinine (0.5-1.4) mg/dL Estim Creat Clear Calc Estimated GFR Random Glucose (60-115) mg/dL Calcium (8.4-10.2) mg/dL Magnesium (1.6-2.6) mg/dL Total Bilirubin (0.0-1.0) mg/dL Direct Bilirubin (0.0-0.5) mg/dL AST (5-37) U/L ALT (0-40) U/L Alkaline Phosphatase (39-117) U/L Troponin I High Sens 5.7 (<3.5-35.0) ng/L B-Natriuretic Peptide 102 H (<100) pg/mL Total Protein (6.5-8.0) g/dL Albumin (3.5-5.0) g/dL Lipase (8-78) U/L Urine Color Urine Appearance Urine pH (5.0-8.0) Ur Specific [place] (1.005-1.025) Urine Protein (NEG-TRACE) MG/DL Urine Glucose (UA) (NEG) MG/DL Urine Ketones (NEG) MG/DL Urine Blood (NEG) Urine Nitrite (NEG) Ur Leukocyte Esterase (NEG) Influenza Type A (PCR) NEGATIVE (Negative) Influenza Type B (PCR) NEGATIVE (Negative) RSV RNA Qual (PCR) NEGATIVE (Negative) SARS-CoV-2 RNA (RT-PCR) NEGATIVE (Negative) 07/05/21 07/05/21 Range/Units 18:38 21:24 WBC (4.8-10.8) X10*3/uL RBC (4.60-5.80) X10*6/uL Hgb (14.0-18.0) g/dl Hct (42.0-52.0) % MCV (80.0-98.0) fL MCH (27.0-33.0) pg MCHC (31.0-36.0) g/dl RDW (11.0-16.0) % Plt Count (160-400) X10*3/uL MPV (9.4-12.4) fL Immature Gran % (Auto) (0.0-0.4) % Neut % (Auto) (45-73) % Lymph % (Auto) (20-40) % [place] % (Auto) (2-11) % Eos % (Auto) (0-4) % Baso % (Auto) (0-2) % Lymph # (Auto) (1.2-4.9) X10*3/uL [place] # (Auto) (0.1-1.2) X10*3/uL Eos # (Auto) (0.0-0.4) X10*3/uL Baso # (Auto) (0.0-0.2) X10*3/uL Abs Immat Gran (auto) (0.00-0.03) X10*3/uL Absolute Neuts (auto) (2.0-8.3) x10*3/uL Absolute Nucleated RBC (0.0-0.012) X10*3/uL Nucleated RBC % (auto) (0.0-0.2) /100WBC Sodium 142 (135-145) mmol/L Potassium 4.3 (3.3-5.1) mmol/L Chloride 107 (96-108) mmol/L Carbon Dioxide 28 (22-29) mmol/L Anion Gap 11 L (12-20) BUN 23 H (9-16) mg/dL Creatinine 1.24 (0.5-1.4) mg/dL Estim Creat Clear Calc 70.1 Estimated GFR 56 Random Glucose 190 H (60-115) mg/dL Calcium 8.4 D (8.4-10.2) mg/dL Magnesium (1.6-2.6) mg/dL Total Bilirubin (0.0-1.0) mg/dL Direct Bilirubin (0.0-0.5) mg/dL AST (5-37) U/L ALT (0-40) U/L Alkaline Phosphatase (39-117) U/L Troponin I High Sens (<3.5-35.0) ng/L B-Natriuretic Peptide (<100) pg/mL Total Protein (6.5-8.0) g/dL Albumin (3.5-5.0) g/dL Lipase (8-78) U/L Urine Color YELLOW Urine Appearance HAZY Urine pH 6.0 (5.0-8.0) Ur Specific [place] 1.025 (1.005-1.025) Urine Protein NEG (NEG-TRACE) MG/DL Urine Glucose (UA) NEG (NEG) MG/DL Urine Ketones NEG (NEG) MG/DL Urine Blood NEG (NEG) Urine Nitrite NEG (NEG) Ur Leukocyte Esterase NEG (NEG) Influenza Type A (PCR) (Negative) Influenza Type B (PCR) (Negative) RSV RNA Qual (PCR) (Negative) SARS-CoV-2 RNA (RT-PCR) (Negative) <ROSARIO You - Last Filed: 07/05/21 18:42> Lab Results 07/05/21 07/05/21 07/05/21 Range/Units 15:31 15:31 15:31 WBC 9.9 (4.8-10.8) X10*3/uL RBC 5.24 (4.60-5.80) X10*6/uL Hgb 14.9 (14.0-18.0) g/dl Hct 46.2 (42.0-52.0) % MCV 88.2 (80.0-98.0) fL MCH 28.4 (27.0-33.0) pg MCHC 32.3 (31.0-36.0) g/dl RDW 13.6 (11.0-16.0) % Plt Count 177 (160-400) X10*3/uL MPV 10.1 (9.4-12.4) fL Immature Gran % (Auto) 0.3 (0.0-0.4) % Neut % (Auto) 75.6 H (45-73) % Lymph % (Auto) 17.1 L (20-40) % [place] % (Auto) 6.0 (2-11) % Eos % (Auto) 0.7 (0-4) % Baso % (Auto) 0.3 (0-2) % Lymph # (Auto) 1.7 (1.2-4.9) X10*3/uL [place] # (Auto) 0.6 (0.1-1.2) X10*3/uL Eos # (Auto) 0.1 (0.0-0.4) X10*3/uL Baso # (Auto) 0.0 (0.0-0.2) X10*3/uL Abs Immat Gran (auto) 0.03 (0.00-0.03) X10*3/uL Absolute Neuts (auto) 7.5 (2.0-8.3) x10*3/uL Absolute Nucleated RBC 0.000 (0.0-0.012) X10*3/uL Nucleated RBC % (auto) 0.0 (0.0-0.2) /100WBC Sodium 140 (135-145) mmol/L Potassium 4.4 (3.3-5.1) mmol/L Chloride 101 (96-108) mmol/L Carbon Dioxide 32 H (22-29) mmol/L Anion Gap 11 L (12-20) BUN 24 H (9-16) mg/dL Creatinine 1.59 H (0.5-1.4) mg/dL Estim Creat Clear Calc 54.6 Estimated GFR 42 Random Glucose 221 H (60-115) mg/dL Calcium 9.8 (8.4-10.2) mg/dL Magnesium 2.0 (1.6-2.6) mg/dL Total Bilirubin 0.5 (0.0-1.0) mg/dL Direct Bilirubin 0.2 (0.0-0.5) mg/dL AST 23 (5-37) U/L ALT 42 H (0-40) U/L Alkaline Phosphatase 104 (39-117) U/L Troponin I High Sens 8.2 (<3.5-35.0) ng/L B-Natriuretic Peptide (<100) pg/mL Total Protein 6.6 (6.5-8.0) g/dL Albumin 3.9 (3.5-5.0) g/dL Lipase 22 (8-78) U/L Urine Color Urine Appearance Urine pH (5.0-8.0) Ur Specific [place] (1.005-1.025) Urine Protein (NEG-TRACE) MG/DL Urine Glucose (UA) (NEG) MG/DL Urine Ketones (NEG) MG/DL Urine Blood (NEG) Urine Nitrite (NEG) Ur Leukocyte Esterase (NEG) Influenza Type A (PCR) (Negative) Influenza Type B (PCR) (Negative) RSV RNA Qual (PCR) (Negative) SARS-CoV-2 RNA (RT-PCR) (Negative) 07/05/21 07/05/21 07/05/21 Range/Units 15:31 15:35 18:38 WBC (4.8-10.8) X10*3/uL RBC (4.60-5.80) X10*6/uL Hgb (14.0-18.0) g/dl Hct (42.0-52.0) % MCV (80.0-98.0) fL MCH (27.0-33.0) pg MCHC (31.0-36.0) g/dl RDW (11.0-16.0) % Plt Count (160-400) X10*3/uL MPV (9.4-12.4) fL Immature Gran % (Auto) (0.0-0.4) % Neut % (Auto) (45-73) % Lymph % (Auto) (20-40) % [place] % (Auto) (2-11) % Eos % (Auto) (0-4) % Baso % (Auto) (0-2) % Lymph # (Auto) (1.2-4.9) X10*3/uL [place] # (Auto) (0.1-1.2) X10*3/uL Eos # (Auto) (0.0-0.4) X10*3/uL Baso # (Auto) (0.0-0.2) X10*3/uL Abs Immat Gran (auto) (0.00-0.03) X10*3/uL Absolute Neuts (auto) (2.0-8.3) x10*3/uL Absolute Nucleated RBC (0.0-0.012) X10*3/uL Nucleated RBC % (auto) (0.0-0.2) /100WBC Sodium (135-145) mmol/L Potassium (3.3-5.1) mmol/L Chloride (96-108) mmol/L Carbon Dioxide (22-29) mmol/L Anion Gap (12-20) BUN (9-16) mg/dL Creatinine (0.5-1.4) mg/dL Estim Creat Clear Calc Estimated GFR Random Glucose (60-115) mg/dL Calcium (8.4-10.2) mg/dL Magnesium (1.6-2.6) mg/dL Total Bilirubin (0.0-1.0) mg/dL Direct Bilirubin (0.0-0.5) mg/dL AST (5-37) U/L ALT (0-40) U/L Alkaline Phosphatase (39-117) U/L Troponin I High Sens 5.7 (<3.5-35.0) ng/L B-Natriuretic Peptide 102 H (<100) pg/mL Total Protein (6.5-8.0) g/dL Albumin (3.5-5.0) g/dL Lipase (8-78) U/L Urine Color Urine Appearance Urine pH (5.0-8.0) Ur Specific [place] (1.005-1.025) Urine Protein (NEG-TRACE) MG/DL Urine Glucose (UA) (NEG) MG/DL Urine Ketones (NEG) MG/DL Urine Blood (NEG) Urine Nitrite (NEG) Ur Leukocyte Esterase (NEG) Influenza Type A (PCR) NEGATIVE (Negative) Influenza Type B (PCR) NEGATIVE (Negative) RSV RNA Qual (PCR) NEGATIVE (Negative) SARS-CoV-2 RNA (RT-PCR) NEGATIVE (Negative) 07/05/21 07/05/21 Range/Units 18:38 21:24 WBC (4.8-10.8) X10*3/uL RBC (4.60-5.80) X10*6/uL Hgb (14.0-18.0) g/dl Hct (42.0-52.0) % MCV (80.0-98.0) fL MCH (27.0-33.0) pg MCHC (31.0-36.0) g/dl RDW (11.0-16.0) % Plt Count (160-400) X10*3/uL MPV (9.4-12.4) fL Immature Gran % (Auto) (0.0-0.4) % Neut % (Auto) (45-73) % Lymph % (Auto) (20-40) % [place] % (Auto) (2-11) % Eos % (Auto) (0-4) % Baso % (Auto) (0-2) % Lymph # (Auto) (1.2-4.9) X10*3/uL [place] # (Auto) (0.1-1.2) X10*3/uL Eos # (Auto) (0.0-0.4) X10*3/uL Baso # (Auto) (0.0-0.2) X10*3/uL Abs Immat Gran (auto) (0.00-0.03) X10*3/uL Absolute Neuts (auto) (2.0-8.3) x10*3/uL Absolute Nucleated RBC (0.0-0.012) X10*3/uL Nucleated RBC % (auto) (0.0-0.2) /100WBC Sodium 142 (135-145) mmol/L Potassium 4.3 (3.3-5.1) mmol/L Chloride 107 (96-108) mmol/L Carbon Dioxide 28 (22-29) mmol/L Anion Gap 11 L (12-20) BUN 23 H (9-16) mg/dL Creatinine 1.24 (0.5-1.4) mg/dL Estim Creat Clear Calc 70.1 Estimated GFR 56 Random Glucose 190 H (60-115) mg/dL Calcium 8.4 D (8.4-10.2) mg/dL Magnesium (1.6-2.6) mg/dL Total Bilirubin (0.0-1.0) mg/dL Direct Bilirubin (0.0-0.5) mg/dL AST (5-37) U/L ALT (0-40) U/L Alkaline Phosphatase (39-117) U/L Troponin I High Sens (<3.5-35.0) ng/L B-Natriuretic Peptide (<100) pg/mL Total Protein (6.5-8.0) g/dL Albumin (3.5-5.0) g/dL Lipase (8-78) U/L Urine Color YELLOW Urine Appearance HAZY Urine pH 6.0 (5.0-8.0) Ur Specific [place] 1.025 (1.005-1.025) Urine Protein NEG (NEG-TRACE) MG/DL Urine Glucose (UA) NEG (NEG) MG/DL Urine Ketones NEG (NEG) MG/DL Urine Blood NEG (NEG) Urine Nitrite NEG (NEG) Ur Leukocyte Esterase NEG (NEG) Influenza Type A (PCR) (Negative) Influenza Type B (PCR) (Negative) RSV RNA Qual (PCR) (Negative) SARS-CoV-2 RNA (RT-PCR) (Negative) <ROSARIO Prasad - Last Filed: 07/05/21 21:53> Discharge Plan Discharge Clinical Impression: Diarrhea, Generalized weakness, Acute dehydration <ROSARIO You - Last Filed: 07/05/21 18:42> Patient Disposition: Home, Self-Care <ROSARIO You - Last Filed: 07/05/21 18:42> Instructions: Acute Diarrhea (ED), Weakness (ED) <ROSARIO You - Last Filed: 07/05/21 18:42> Additional Instructions: your blood work showed evidence of dehydration, it is very important that you are staying hydrated. If symptoms persist or worsen, he develops abdominal pain, vomiting, or fever please return to the ED <ROSARIO You - Last Filed: 07/05/21 18:42> Prescriptions: No Action acetaminophen 325 mg Tablet 650 mg PO BEDTIME RF: 0 gabapentin 400 mg Capsule 400 mg PO BID RF: 0 cyanocobalamin (vitamin B-12) 1,000 mcg/mL Solution 1,000 mcg IM QMONTH RF: 0 multivitamin with minerals Tablet 1 tab PO DAILY RF: 0 docusate sodium 100 mg Tablet 100 mg PO DAILY RF: 0 calcium carbonate-vitamin D3 [Calcium 500 + D] 500 mg(1,250mg) -200 unit Tablet 1 tab PO DAILY RF: 0 cholecalciferol (vitamin D3) 25 mcg (1,000 unit) Tablet 25 mcg PO DAILY RF: 0 PreserVision AREDS-2 250-90-40-1 mg Capsule 2 tab PO DAILY RF: 0 carboxymethylcellulose sodium 1 % Drops 1 drp OPHTHALMIC (EYE) BID RF: 0 valsartan 160 mg Capsule 160 mg PO DAILY RF: 0 Lantus U-100 Insulin 100 unit/mL Solution 70 unit SUBCUT BEDTIME RF: 0 amlodipine 5 mg Tablet 5 mg PO BEDTIME RF: 0 magnesium hydroxide [Milk of Magnesia] 400 mg/5 mL Suspension 30 ml PO BEDTIME PRN (Reason: Constipation) RF: 0 tamsulosin 0.4 mg Capsule 0.8 mg PO BEDTIME RF: 0 insulin lispro 100 unit/mL Solution 10 unit SUBCUT DAILY@1800 RF: 0 insulin lispro 100 unit/mL Solution 12 unit SUBCUT DAILY@1200 RF: 0 insulin lispro 100 unit/mL Solution 1 sliding scale dose SUBCUT USEASDIRECTD RF: 0 insulin lispro 100 unit/mL Solution 14 unit SUBCUT DAILY@0800 RF: 0 Eliquis 5 mg Tablet 5 mg PO BID Qty: 0 RF: 0 metoprolol succinate [Toprol XL] 25 mg tablet extended release 24 hr 12.5 mg PO DAILY Qty: 30 RF: 0 cefuroxime axetil 500 mg tablet 500 mg PO Q12H Qty: 14 RF: 0 <ROSARIO You - Last Filed: 07/05/21 18:42> Referrals: Marcelo Sunshine MD [Primary Care Provider] - 2 days <ROSARIO You - Last Filed: 07/05/21 18:42> Print Language: Irish <ROSARIO You - Last Filed: 07/05/21 18:42>
[2021-07-05 14:38] VITALS: BP 100/42; PULSE 65; RESP 16; TEMP 36.4; O2SAT 96; BMI 40.6
[2021-07-05 15:38] LABS: MANUAL DIFF FLAG NO
[2021-07-05 15:40] LABS: Basophils Percent Auto 0.3 % (0-2); Eosinophils Absolute Auto 0.1 X10*3/uL (0.0-0.4); Eosinophils Percent Auto 0.7 % (0-4); Hematocrit 46.2 % (42.0-52.0); Hemoglobin 14.9 g/dl (14.0-18.0); Imm Gran Abs Auto 0.03 X10*3/uL (0.00-0.03); Imm Gran Pct Auto 0.3 % (0.0-0.4); Lymphocytes Absolute Auto 1.7 X10*3/uL (1.2-4.9); Lymphocytes Percent Auto 17.1 % (20-40); Mean Corpuscular HGB Conc 32.3 g/dl (31.0-36.0); Mean Corpuscular Hemoglobin 28.4 pg (27.0-33.0); Mean Corpuscular Volume 88.2 fL (80.0-98.0); Mean Platelet Volume 10.1 fL (9.4-12.4); Monocytes Absolute Auto 0.6 X10*3/uL (0.1-1.2); Neutrophils Absolute Auto 7.5 x10*3/uL (2.0-8.3); Neutrophils Percent Auto 75.6 % (45-73); Platelet Count 177 X10*3/uL (160-400); Red Blood Count 5.24 X10*6/uL (4.60-5.80); Red Cell Distribution Width 13.6 % (11.0-16.0); White Blood Count 9.9 X10*3/uL (4.8-10.8)
[2021-07-05 16:00] LABS: Alanine Aminotransferase 42 U/L (0-40); Albumin Level 3.9 g/dL (3.5-5.0); Alkaline Phosphatase 104 U/L (39-117); Anion Gap 11 (12-20); Aspartate Amino Transferase 23 U/L (5-37); Bilirubin Direct 0.2 mg/dL (0.0-0.5); Bilirubin Total 0.5 mg/dL (0.0-1.0); Blood Urea Nitrogen 24 mg/dL (9-16); Calcium 9.8 mg/dL (8.4-10.2); Carbon Dioxide 32 mmol/L (22-29); Chloride 101 mmol/L (96-108); Creatinine Clr Calc Pharmacy 54.6; Estimated Glomerular Filt Rate 42; Glucose Random 221 mg/dL (60-115); Lipase 22 U/L (8-78); Potassium 4.4 mmol/L (3.3-5.1); Sodium 140 mmol/L (135-145); Total Protein 6.6 g/dL (6.5-8.0)
[2021-07-05 16:06] LABS: B Type Natriuretic Peptide 102 pg/mL (<100)
[2021-07-05 16:07] LABS: Troponin-I High Sensitivity 8.2 ng/L (<3.5-35.0)
[2021-07-05 16:20] LABS: Influenza A PCR NEGATIVE (Negative); Influenza B PCR NEGATIVE (Negative); Resp Syncy Virus RNA Qual PCR NEGATIVE (Negative); SARS COV2 PCR INHOUSE NEGATIVE (Negative)
[2021-07-05] MEDS: 0.9 % Sodium Chloride 1,000 ML 999 ML IVCONT (16:47)
[2021-07-05 19:03] LABS: Anion Gap 11 (12-20); Blood Urea Nitrogen 23 mg/dL (9-16); Calcium 8.4 mg/dL (8.4-10.2); Carbon Dioxide 28 mmol/L (22-29); Chloride 107 mmol/L (96-108); Creatinine Clr Calc Pharmacy 70.1; Estimated Glomerular Filt Rate 56; Glucose Random 190 mg/dL (60-115); Potassium 4.3 mmol/L (3.3-5.1); Sodium 142 mmol/L (135-145)
[2021-07-05 19:07] LABS: Troponin-I High Sensitivity 5.7 ng/L (<3.5-35.0)
[2021-07-05 20:03] VITALS: BP 131/63; PULSE 77; RESP 20; TEMP 36.8; O2SAT 96
[2021-07-05 21:30] LABS: Appearance Urine HAZY; Color Urine YELLOW; Glucose Urine UA NEG (NEG); Leukocyte Esterase Urine NEG (NEG); Nitrite Urine NEG (NEG); Specific Gravity - Urine 1.025 (1.005-1.025); Urine Blood NEG (NEG); Urine Ketones NEG (NEG); Urine Protein NEG (NEG-TRACE)
--- NOTE | 2021-07-05 22:05 | PC.NURSE ---
report given to quentin maddox. VSS no questions regarding managment.
== END 2021-07-05 22:06 | disposition home or self-care (01) ==
PROVIDERS: Physician Assistant; Emergency Provider Emergency Medicine Emergency Medical Services; PCP Internal Medicine Endocrinology, Diabetes & Metabolism
DX: R19.7 Diarrhea, unspecified (principal); R53.1 Weakness; E86.0 Dehydration; Z20.822 Contact with and (suspected) exposure to COVID-19; I48.0 Paroxysmal atrial fibrillation; E11.9 Type 2 diabetes mellitus without complications; I10 Essential (primary) hypertension; F03.90 Unspecified dementia, unspecified severity, without behavioral disturbance, psychotic disturbance, mood disturbance, and anxiety; Z79.02 Long term (current) use of antithrombotics/antiplatelets
CPT/HCPCS: 0241U; 36415; 51701; 71045; 80048; 80076; 81003; 83690; 83735; 83880; 84484; 85025; 93005; 96361; 96374; 99284

== ENCOUNTER 2021-08-15 16:55 | Emergency (ER) | payer OTHER, SELFPAY ==
--- NOTE | ~2021-08-15 | CT_ITS ---
EXAMINATION: CT HEAD WITHOUT CONTRAST CLINICAL INFORMATION: AMS, weakness COMPARISON: None TECHNIQUE: Contiguous axial imaging was performed from the skull base to vertex without intravenous administration of contrast. This CT examination was performed using dose optimization techniques as appropriate, variously including the following: *Automated exposure control *Adjustment of mA and/or kV according to patient size (this includes techniques or standardized protocols for targeted exams where dose is matched to indication/reason for exam; i.e. extremities or head) *Use of iterative reconstruction technique DLP: 1010 mGy-cm FINDINGS: There is no evidence of acute intracranial hemorrhage or territorial infarction. No abnormal mass effect or midline shift is seen. Andre to white matter differentiation is well preserved. No extra-axial fluid collections are identified. The lateral ventricles are significantly enlarged but symmetrical. Mild prominence of cortical sulci seen. Bone windows reveal no calvarial abnormality. There is no scalp soft tissue abnormality. Bilateral paranasal sinuses and mastoid air cells are well-aerated with minimal mucoperiosteal thickening left maxillary sinus. The osseous structures and soft tissues are normal. The mastoid air cells and visualized portions of the paranasal sinuses are well aerated. CT/CT head/brain wo con IMPRESSION: No acute intracranial process seen. Moderate cerebral volume loss.
[2021-08-15 17:06] VITALS: BP 142/48; PULSE 43; RESP 20; TEMP 36.9; O2SAT 97; BMI 40.6
--- NOTE | 2021-08-15 17:17 | ECG_ITS ---
Test Reason : afib Blood Pressure : / mmHG Vent. Rate : 089 BPM Atrial Rate : 267 BPM P-R Int : 000 ms QRS Dur : 090 ms QT Int : 364 ms P-R-T Axes : 000 002 031 degrees QTc Int : 442 ms Atrial flutter with variable A-V block Cannot rule out inferior infarct Abnormal ECG When compared with ECG of 05-JUL-2021 17:13, Atrial flutter has replaced Sinus rhythm Referred By: Michael Live Electronically Signed By:Aristeo Shields
--- NOTE | 2021-08-15 17:18 | ED_ITS ---
HPI - General Adult General Chief complaint: General Medical Stated complaint: GENERAL WEAKNESS [facility]ON [facility] FOR [facility] PER EMS Time Seen by Provider: 08/15/21 17:16 Source: patient Mode of arrival: ambulatory Limitations: no limitations History of Present Illness HPI narrative: This is a 80-year-old male past medical history significant for paroxysmal atrial fibrillation on Eliquis, hypertension and dementia brought in by ambulance from the [facility] were staff for concerned as patient appeared to be slightly more confused than his baseline around 16:00. According to EMS and the nurses at the [facility] around 16:00 they noted that patient was altered and he did not know his name, nurse from the [facility] tells us that patient appeared pale and diaphoretic and appeared to be confused. Patient does have dementia at baseline however. Nurse tells me that there has been no recent trauma no falls. Upon patient's arrival to the emergency department he appears well, he is alert and oriented x3 answering questions appropriately, and has no concerns. He tells me he feels good and he does not understand why he is here at [facility]. No evidence signs of trauma. Denies chest pain, shortness of breath, fevers, chills, nausea, vomiting, abdominal pain, headache, dizziness, vision changes, weakness. Patient is nonambulatory and is wheelchair-bound at baseline. Onset (ago): hour(s) (1) Relieving factors: none Exacerbating factors: none Associated symptoms: denies other symptoms Treatments prior to arrival: none Related Data Home Medications Medication Instructions Recorded Confirmed acetaminophen 325 mg tablet 650 mg PO BEDTIME 06/01/21 06/01/21 amlodipine 5 mg tablet 5 mg PO BEDTIME 06/01/21 06/01/21 calcium carbonate 500 1 tab PO DAILY 06/01/21 06/01/21 mg-vitamin D3 5 mcg (200 unit) tablet (Calcium 500 + D) carboxymethylcellulose 1 drp OPHTHALMIC (EYE) BID 06/01/21 06/01/21 sodium 1 % eye drops cholecalciferol (vitamin D3) 25 mcg PO DAILY 06/01/21 06/01/21 25 mcg (1,000 unit) tablet cyanocobalamin (vitamin 1,000 mcg IM QMONTH 06/01/21 06/01/21 B-12) 1,000 mcg/mL injection solution docusate sodium 100 mg 100 mg PO DAILY 06/01/21 06/01/21 tablet gabapentin 400 mg capsule 400 mg PO BID 06/01/21 06/01/21 insulin glargine 100 unit/mL 70 unit SUBCUT BEDTIME 06/01/21 06/01/21 subcutaneous solution (Lantus U-100 Insulin) insulin lispro 100 unit/mL 1 sliding scale dose SUBCUT 06/01/21 06/01/21 subcutaneous solution USEASDIRECTD insulin lispro 100 unit/mL 10 unit SUBCUT DAILY@1800 06/01/21 06/01/21 subcutaneous solution insulin lispro 100 unit/mL 12 unit SUBCUT DAILY@1200 06/01/21 06/01/21 subcutaneous solution insulin lispro 100 unit/mL 14 unit SUBCUT DAILY@0800 06/01/21 06/01/21 subcutaneous solution magnesium hydroxide 400 mg/5 30 ml PO BEDTIME PRN 06/01/21 06/01/21 mL oral suspension (Milk of Magnesia) multivitamin with minerals 1 tab PO DAILY 06/01/21 06/01/21 tamsulosin 0.4 mg capsule 0.8 mg PO BEDTIME 06/01/21 06/01/21 valsartan 160 mg capsule 160 mg PO DAILY 06/01/21 06/01/21 vit C 250 mg-vit E 90 2 tab PO DAILY 06/01/21 06/01/21 mg-zinc 40 mg-copper 1 [id number] capsule (PreserVision AREDS-2) Previous Rx's Medication Instructions Recorded apixaban 5 mg tablet (Eliquis) 5 mg PO BID #0 tab 06/04/21 cefuroxime axetil 500 mg tablet 500 mg PO Q12H #14 tab 06/04/21 metoprolol succinate 25 mg 12.5 mg PO DAILY #30 tab 06/04/21 tablet,extended release 24 hr (Toprol XL) Allergies Allergy/AdvReac Type Severity Reaction Status Date / Time acetaminophen Allergy Unknown vomiting Verified 09/08/15 00:00 [Percocet] latex [LATEX] Allergy Unknown RASH Unverified 03/27/20 16:04 oxycodone [Percocet] Allergy Unknown vomiting Verified 09/08/15 00:00 latex Allergy Unknown over long Uncoded 09/08/15 00:00 period of time Review of Systems Verdana 4l Review of Systems: Verdana 4d Verdana 4d Constitutional : No Weight loss, No Fever, No Chills, No Fatigue, No Malaise ENT/Mouth : No sore throat, No Rhinorrhea Eyes: No Eye Pain, No Swelling, No Redness Cardiovascular : No Chest Pain, No SOB, No Dyspnea on Exertion, No OrthopneaOrthopnea, No Edema, No Palpitations Respiratory : No Cough, No Sputum, No Wheezing Gastrointestinal : No Nausea, No Vomiting, No Diarrhea, No Constipation, No abdominal Pain, No Hematochezia, No Melena Genitourinary : No Dysuria, No Urinary Frequency, No Hematuria, Musculoskeletal : No joint pain, No Myalgias, No Joint Swelling Skin : No Skin Lesions, No rash Neuro : No Weakness, No Numbness, No Dizziness, No Headache Psych : No Anxiety/Panic, No Depression All other systems reviewed and are negative Yes all other systems are reviewed and are negative PMFSH Past Medical History Attestation statement: The following information was validated with the patient. 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 Personal history of COVID-19 Personal history of other malignant neoplasm of skin Spondylosis without myelopathy or radiculopathy, 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, unspecified Type 2 diabetes mellitus without complications Unspecified osteoarthritis, unspecified site Social History Social History Household Members: None and Other Housing: Assisted Alcohol intake: never Patient Tobacco Use Status: Tobacco use Unknown Smoked in Last 30 Days: No Use of substances other than those prescribed or required for medical reasons: No Advance Directives: Yes Advance Directives on File: Yes Advance Directives Date on File: 06/01/21 service: Yes Current occupational status: retired Physical Exam Verdana 4l Vital Signs: Verdana 4d Verdana 4d Vital Signs: Verdana 4d Verdana 4Bd Last Vital Signs Verdana 4d 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 Appearance: Alert.? Oriented X3.? No acute distress.? Head: Normocephalic, atraumatic, no step-offs or deformities Eyes: Pupils equal, round and reactive to light.? Extraocular movements intact. ENT: Pharynx normal.? Neck: Normal inspection.? Neck supple.? CVS: Slow rate, normal rhythm. Likely sinus bradycardia. Pulses normal.? Respiratory: No respiratory distress.? Breath sounds normal.? Abdomen: Soft and non tender.?Normal bowel sounds. Distended abdomen (patients baseline) Skin: Skin warm and dry.? Normal skin color.? Normal skin turgor.? Extremities: No lower extremity edema.? No calf ttp. 5/5 strength to bilateral upper extremities. 4/5 strength to lower extremities (patients baseline) Back: No midline tenderness, no C-spine tenderness, full range of motion, no CVA tenderness bilaterally Neuro: Oriented X 3.? No motor deficit.? No sensory deficit. Normal [id number], hand venue coordinator, to point extinction. Patient answering questions appropriately. Unable to assess gait as patient is wheelchair-bound at baseline. Proprioception intact bilaterally to upper and lower extremities. Course Reevaluation(s) Reevaluation #1: CBC within normal limits. Patient's carbon dioxide noted to be slightly elevated however close to patient's baseline. BUN slightly elevated patient tolerating p.o. fluids will encourage hydration. Troponin slightly elevated patient not complaining of chest pain however he does have dementia will recheck troponin in 3 hours from initial. Patient continues to have no complaints. Patient with sinus tachycardia on the monitor normal rate. Patient appears well no acute distress. Urine is clean no signs of UTI. COVID negative. CT of the head with no acute findings. Pending 2nd troponin, this is negative [facility] Time: 18:56 Reevaluation #2: Patient's 2nd troponin 7.1 not meeting criteria of doubling the delta, unlikely that this is ACS. At this time I feel as though patient is safe for discharge back to [facility]. Patient has no complaints he is alert and oriented x3. Vital signs are stable. He is mentating well able to hold a conversation with logic. Comfortable with discharge back to [facility]. Time: 20:52 Medical Decision Making MDM Narrative Medical decision making narrative: 1724 80 yo M pmhx PAF on Eliquis, HTN and dementia BIBA from [facility] staff for concerned as patient appeared to be slightly more confused than his baseline around 16:00 episode lasted 15 mins. Upon arival patient A&O x3. No complaints. PE benign. Neuro nonfocal. No signs of truama. Plan- labs, UA, head CT Unlikley stroke will rule out ICH, ACS and UTI. Medical Records Medical records reviewed: Yes I reviewed the patient's medical records. Lab Data Lab results reviewed: Yes I reviewed the patient's lab results. Result diagrams: 08/15/21 17:56 08/15/21 17:56 Labs: Lab Results 08/15/21 0208/15/21 Range/Units 17:56 17:56 17:56 WBC 7.7 (4.8-10.8) X10*3/uL RBC 4.87 (4.60-5.80) X10*6/uL Hgb 14.2 (14.0-18.0) g/dl Hct 42.4 (42.0-52.0) % MCV 87.1 (80.0-98.0) fL MCH 29.2 (27.0-33.0) pg MCHC 33.5 (31.0-36.0) g/dl RDW 13.2 (11.0-16.0) % Plt Count 187 (160-400) X10*3/uL MPV 10.3 (9.4-12.4) fL Immature Gran % (Auto) 0.3 (0.0-0.4) % Neut % (Auto) 60.7 (45-73) % Lymph % (Auto) 28.3 (20-40) % [place] % (Auto) 8.0 (2-11) % Eos % (Auto) 2.3 (0-4) % Baso % (Auto) 0.4 (0-2) % Lymph # (Auto) 2.2 (1.2-4.9) X10*3/uL [place] # (Auto) 0.6 (0.1-1.2) X10*3/uL Eos # (Auto) 0.2 (0.0-0.4) X10*3/uL Baso # (Auto) 0.0 (0.0-0.2) X10*3/uL Abs Immat Gran (auto) 0.02 (0.00-0.03) X10*3/uL Absolute Neuts (auto) 4.7 (2.0-8.3) x10*3/uL Absolute Nucleated RBC 0.000 (0.0-0.012) X10*3/uL Nucleated RBC % (auto) 0.0 (0.0-0.2) /100WBC Sodium 140 (135-145) mmol/L Potassium 4.1 (3.3-5.1) mmol/L Chloride 104 (96-108) mmol/L Carbon Dioxide 30 H (22-29) mmol/L Anion Gap 10 L (12-20) BUN 23 H (9-16) mg/dL Creatinine 1.38 (0.5-1.4) mg/dL Estim Creat Clear Calc 62.9 Estimated GFR 50 Random Glucose 193 H (60-115) mg/dL Calcium 9.4 D (8.4-10.2) mg/dL Magnesium 1.9 (1.6-2.6) mg/dL Total Bilirubin 0.6 (0.0-1.0) mg/dL AST 19 (5-37) U/L ALT 25 (0-40) U/L Alkaline Phosphatase 98 (39-117) U/L Troponin I High Sens (<3.5-35.0) ng/L Total Protein 6.7 (6.5-8.0) g/dL Albumin 3.9 (3.5-5.0) g/dL Urine Color Urine Appearance Urine pH (5.0-8.0) Ur Specific [place] (1.005-1.025) Urine Protein (NEG-TRACE) MG/DL Urine Glucose (UA) (NEG) MG/DL Urine Ketones (NEG) MG/DL Urine Blood (NEG) Urine Nitrite (NEG) Ur Leukocyte Esterase (NEG) Urine RBC (0) /HPF Urine WBC (0-4) /HPF Ur Squamous Epith Cells /LPF Urine Bacteria /LPF COVID-19 (NARCISO) Negative (Negative) COVID-19 Clin Com See Note 08/15/21 08/15/21 08/15/21 Range/Units 17:56 18:24 20:13 WBC (4.8-10.8) X10*3/uL RBC (4.60-5.80) X10*6/uL Hgb (14.0-18.0) g/dl Hct (42.0-52.0) % MCV (80.0-98.0) fL MCH (27.0-33.0) pg MCHC (31.0-36.0) g/dl RDW (11.0-16.0) % Plt Count (160-400) X10*3/uL MPV (9.4-12.4) fL Immature Gran % (Auto) (0.0-0.4) % Neut % (Auto) (45-73) % Lymph % (Auto) (20-40) % [place] % (Auto) (2-11) % Eos % (Auto) (0-4) % Baso % (Auto) (0-2) % Lymph # (Auto) (1.2-4.9) X10*3/uL [place] # (Auto) (0.1-1.2) X10*3/uL Eos # (Auto) (0.0-0.4) X10*3/uL Baso # (Auto) (0.0-0.2) X10*3/uL Abs Immat Gran (auto) (0.00-0.03) X10*3/uL Absolute Neuts (auto) (2.0-8.3) x10*3/uL Absolute Nucleated RBC (0.0-0.012) X10*3/uL Nucleated RBC % (auto) (0.0-0.2) /100WBC Sodium (135-145) mmol/L Potassium (3.3-5.1) mmol/L Chloride (96-108) mmol/L Carbon Dioxide (22-29) mmol/L Anion Gap (12-20) BUN (9-16) mg/dL Creatinine (0.5-1.4) mg/dL Estim Creat Clear Calc Estimated GFR Random Glucose (60-115) mg/dL Calcium (8.4-10.2) mg/dL Magnesium (1.6-2.6) mg/dL Total Bilirubin (0.0-1.0) mg/dL AST (5-37) U/L ALT (0-40) U/L Alkaline Phosphatase (39-117) U/L Troponin I High Sens 6.2 7.1 (<3.5-35.0) ng/L Total Protein (6.5-8.0) g/dL Albumin (3.5-5.0) g/dL Urine Color YELLOW Urine Appearance CLEAR Urine pH 5.5 (5.0-8.0) Ur Specific [place] 1.020 (1.005-1.025) Urine Protein NEG (NEG-TRACE) MG/DL Urine Glucose (UA) NEG (NEG) MG/DL Urine Ketones NEG (NEG) MG/DL Urine Blood TRACE (NEG) Urine Nitrite NEG (NEG) Ur Leukocyte Esterase NEG (NEG) Urine RBC 1-4 (0) /HPF Urine WBC 0 (0-4) /HPF Ur Squamous Epith Cells NONE /LPF Urine Bacteria NONE /LPF COVID-19 (NARCISO) (Negative) COVID-19 Clin Com Imaging Data CT scan - head: Attestation: I personally reviewed and interpreted this imaging study as follows: Radiologist's impression: FINDINGS: There is no evidence of acute intracranial hemorrhage or territorial infarction. No abnormal mass effect or midline shift is seen. Andre to white matter differentiation is well preserved. No extra-axial fluid collections are identified. The lateral ventricles are significantly enlarged but symmetrical. Mild prominence of cortical sulci seen. Bone windows reveal no calvarial abnormality. There is no scalp soft tissue abnormality. Bilateral paranasal sinuses and mastoid air cells are well-aerated with minimal mucoperiosteal thickening left maxillary sinus. The osseous structures and soft tissues are normal. The mastoid air cells and visualized portions of the paranasal sinuses are well aerated. ? CT/CT head/brain wo con IMPRESSION: No acute intracranial process seen. ? Moderate cerebral volume loss. ECG Data Attestation: I personally reviewed and interpreted this ECG as follows: Prior ECG tracings: available for review Interpretation: Ventricular rate of 77, TX normal, QRS normal, QT/QTC normal. EKG shows normal sinus rhythm with sinus arrhythmia, when compared to previous EKG is atrial flutter is no longer present. No ST elevations or inversions concerning for ischemia. Critical Care Time Critical Care Time Critical Care Time: No Discharge Plan Discharge Clinical Impression: Acute alteration in mental status Patient Disposition: [facility] Transfer Details: Transfer back to [facility]. Instructions: Altered Mental Status (ED) Additional Instructions: Take your medications as prescribed. If you were prescribed antibiotics today, it is important that you take your medication to their entirety, do not skip any doses, do not finish them early. Follow-up with your primary care provider this week. Return to the emergency department with new or worsening symptoms. Such as chest pain, shortness of breath, altered mentation, weakness, lethargy, he adache, dizziness, vision changes, fevers or chills. In case of emergency call [address] with no acute findings. Prescriptions: No Action acetaminophen 325 mg Tablet 650 mg PO BEDTIME 0RF gabapentin 400 mg Capsule 400 mg PO BID 0RF cyanocobalamin (vitamin B-12) 1,000 mcg/mL Solution 1,000 mcg IM QMONTH 0RF multivitamin with minerals Tablet 1 tab PO DAILY 0RF docusate sodium 100 mg Tablet 100 mg PO DAILY 0RF calcium carbonate-vitamin D3 [Calcium 500 + D] 500 mg(1,250mg) -200 unit Tablet 1 tab PO DAILY 0RF cholecalciferol (vitamin D3) 25 mcg (1,000 unit) Tablet 25 mcg PO DAILY 0RF PreserVision AREDS-2 250-90-40-1 mg Capsule 2 tab PO DAILY 0RF carboxymethylcellulose sodium 1 % Drops 1 drp OPHTHALMIC (EYE) BID 0RF valsartan 160 mg Capsule 160 mg PO DAILY 0RF Lantus U-100 Insulin 100 unit/mL Solution 70 unit SUBCUT BEDTIME 0RF amlodipine 5 mg Tablet 5 mg PO BEDTIME 0RF magnesium hydroxide [Milk of Magnesia] 400 mg/5 mL Suspension 30 ml PO BEDTIME PRN (Reason: Constipation) 0RF tamsulosin 0.4 mg Capsule 0.8 mg PO BEDTIME 0RF insulin lispro 100 unit/mL Solution 10 unit SUBCUT DAILY@1800 0RF Rx Instructions: before supper insulin lispro 100 unit/mL Solution 12 unit SUBCUT DAILY@1200 0RF Rx Instructions: before lunch insulin lispro 100 unit/mL Solution 1 sliding scale dose SUBCUT USEASDIRECTD 0RF Protocol: Insulin Correction Scale Less than or equal to 110 ---- Give (units): 0 111 to 150 Give (units): 0 151 to 200 Give (units): 2 201 to 250 Give (units): 4 251 to 300 Give (units): 6 301 to 350 Give (units): 8 Greater than 350 Give (units): 10 Call MD if Blood Glucose > : 350 insulin lispro 100 unit/mL Solution 14 unit SUBCUT DAILY@0800 0RF Rx Instructions: before breakfast Eliquis 5 mg Tablet 5 mg PO BID Qty: 0 0RF metoprolol succinate [Toprol XL] 25 mg tablet extended release 24 hr 12.5 mg PO DAILY Qty: 30 0RF cefuroxime axetil 500 mg tablet 500 mg PO Q12H Qty: 14 0RF Referrals: Marcelo Sunshine MD [Primary Care Provider] - 2 days Stand Alone Forms: Work/School Release
--- NOTE | 2021-08-15 17:19 | PC.NURSE ---
15 min episode of confusion- pt unable to recall date or name poc was 191 per food service [facility] pt controlled afib with eliquis bid similar episode in mar per food service worker
[2021-08-15 18:03] LABS: MANUAL DIFF FLAG NO
[2021-08-15 18:06] LABS: Basophils Percent Auto 0.4 % (0-2); Eosinophils Absolute Auto 0.2 X10*3/uL (0.0-0.4); Eosinophils Percent Auto 2.3 % (0-4); Hematocrit 42.4 % (42.0-52.0); Hemoglobin 14.2 g/dl (14.0-18.0); Imm Gran Abs Auto 0.02 X10*3/uL (0.00-0.03); Imm Gran Pct Auto 0.3 % (0.0-0.4); Lymphocytes Absolute Auto 2.2 X10*3/uL (1.2-4.9); Lymphocytes Percent Auto 28.3 % (20-40); Mean Corpuscular HGB Conc 33.5 g/dl (31.0-36.0); Mean Corpuscular Hemoglobin 29.2 pg (27.0-33.0); Mean Corpuscular Volume 87.1 fL (80.0-98.0); Mean Platelet Volume 10.3 fL (9.4-12.4); Monocytes Absolute Auto 0.6 X10*3/uL (0.1-1.2); Neutrophils Absolute Auto 4.7 x10*3/uL (2.0-8.3); Neutrophils Percent Auto 60.7 % (45-73); Platelet Count 187 X10*3/uL (160-400); Red Blood Count 4.87 X10*6/uL (4.60-5.80); Red Cell Distribution Width 13.2 % (11.0-16.0); White Blood Count 7.7 X10*3/uL (4.8-10.8)
[2021-08-15 18:24] LABS: Alanine Aminotransferase 25 U/L (0-40); Albumin Level 3.9 g/dL (3.5-5.0); Alkaline Phosphatase 98 U/L (39-117); Anion Gap 10 (12-20); Aspartate Amino Transferase 19 U/L (5-37); Bilirubin Total 0.6 mg/dL (0.0-1.0); Blood Urea Nitrogen 23 mg/dL (9-16); Calcium 9.4 mg/dL (8.4-10.2); Carbon Dioxide 30 mmol/L (22-29); Chloride 104 mmol/L (96-108); Creatinine Clr Calc Pharmacy 62.9; Estimated Glomerular Filt Rate 50; Glucose Random 193 mg/dL (60-115); Magnesium 1.9 mg/dL (1.6-2.6); Potassium 4.1 mmol/L (3.3-5.1); Sodium 140 mmol/L (135-145); Total Protein 6.7 g/dL (6.5-8.0)
[2021-08-15 18:27] LABS: COVID-19 Test Negative (Negative); Troponin-I High Sensitivity 6.2 ng/L (<3.5-35.0)
[2021-08-15 18:30] LABS: Appearance Urine CLEAR; Color Urine YELLOW; Glucose Urine UA NEG (NEG); Leukocyte Esterase Urine NEG (NEG); Nitrite Urine NEG (NEG); PH 5.5 (5.0-8.0); UACC Culture Trigger NO; Urine Blood TRACE (NEG); Urine Ketones NEG (NEG); Urine Protein NEG (NEG-TRACE)
[2021-08-15 18:38] LABS: WBC Urine 0 /HPF (0-4)
[2021-08-15 19:06] VITALS: BP 145/61; PULSE 53; RESP 20; TEMP 36.4; O2SAT 97
[2021-08-15 20:38] LABS: Troponin-I High Sensitivity 7.1 ng/L (<3.5-35.0)
[2021-08-15 22:00] VITALS: BP 138/76; PULSE 53; RESP 15; O2SAT 97
== END 2021-08-15 23:04 | disposition skilled nursing facility (03) ==
PROVIDERS: Physician Assistant; Emergency Provider Emergency Medicine Emergency Medical Services; PCP Internal Medicine Endocrinology, Diabetes & Metabolism
DX: R41.82 Altered mental status, unspecified (principal); R00.0 Tachycardia, unspecified; Z20.822 Contact with and (suspected) exposure to COVID-19; I10 Essential (primary) hypertension; E11.9 Type 2 diabetes mellitus without complications; I48.0 Paroxysmal atrial fibrillation; F03.90 Unspecified dementia, unspecified severity, without behavioral disturbance, psychotic disturbance, mood disturbance, and anxiety; E78.5 Hyperlipidemia, unspecified; Z79.01 Long term (current) use of anticoagulants; Z79.4 Long term (current) use of insulin
CPT/HCPCS: 36415; 51701; 70450; 80053; 81001; 83735; 84484; 85025; 87635; 93005; 99284

== ENCOUNTER → 2021-08-25 14:08 | Outpatient (BNVA) | payer OTHER, SELFPAY | PROVIDERS: PCP Internal Medicine Endocrinology, Diabetes & Metabolism; Visit Provider Nurse Practitioner Family | DX: I48.0 Paroxysmal atrial fibrillation (principal); I10 Essential (primary) hypertension | CPT/HCPCS: 99212 ==

== ENCOUNTER → 2021-09-10 14:29 | Outpatient (REF) | payer OTHER, SELFPAY ==
--- NOTE | 2021-09-10 14:39 | HM_ITS ---
Conclusion: 1. Patient was monitored for total period of 3 days and 9 hours 2. Baseline rhythm is normal sinus rhythm with average heart of 56 beats per minute sinus bradycardia 3. Intermittent atrial fibrillation with total burden of 3.51% with longest episode of atrial fibrillation lasted 2 hours and 51 minutes. Heart rate during atrial fibrillation to 136 beats per minute. 4. Total of 9272 PACs accounting for 3.25% of total burden accounting for frequent PACs 5. No patient reported events 6. No significant pauses noted MTDD
== END ==
LOC: HO.CARD 14:29
PROVIDERS: Visit Provider Nurse Practitioner Family
DX: I48.0 Paroxysmal atrial fibrillation (principal)
CPT/HCPCS: 93242

== ENCOUNTER 2021-11-17 06:00 | Outpatient (REF) | payer OTHER, SELFPAY ==
[2021-11-17 07:43] LABS: MANUAL DIFF FLAG NO
[2021-11-17 07:50] LABS: Basophils Percent Auto 0.5 % (0-2); Eosinophils Absolute Auto 0.2 X10*3/uL (0.0-0.4); Eosinophils Percent Auto 2.5 % (0-4); Hematocrit 41.2 % (42.0-52.0); Hemoglobin 13.6 g/dl (14.0-18.0); Imm Gran Abs Auto 0.02 X10*3/uL (0.00-0.03); Imm Gran Pct Auto 0.3 % (0.0-0.4); Lymphocytes Absolute Auto 2.2 X10*3/uL (1.2-4.9); Lymphocytes Percent Auto 34.1 % (20-40); Mean Corpuscular Hemoglobin 28.9 pg (27.0-33.0); Mean Corpuscular Volume 87.5 fL (80.0-98.0); Mean Platelet Volume 10.8 fL (9.4-12.4); Monocytes Absolute Auto 0.4 X10*3/uL (0.1-1.2); Neutrophils Absolute Auto 3.5 x10*3/uL (2.0-8.3); Neutrophils Percent Auto 55.6 % (45-73); Platelet Count 164 X10*3/uL (160-400); Red Blood Count 4.71 X10*6/uL (4.60-5.80); Red Cell Distribution Width 13.6 % (11.0-16.0); White Blood Count 6.3 X10*3/uL (4.8-10.8)
[2021-11-17 08:12] LABS: Estimated Average Glucose 148 mg/dL; Hemoglobin A1c % 6.8 %
[2021-11-17 08:18] LABS: Anion Gap 14 (12-20); Blood Urea Nitrogen 22 mg/dL (9-16); Calcium 9.1 mg/dL (8.4-10.2); Carbon Dioxide 26 mmol/L (22-29); Chloride 106 mmol/L (96-108); Estimated Glomerular Filt Rate 55; Glucose Random 110 mg/dL (60-115); Potassium 3.7 mmol/L (3.3-5.1); Sodium 142 mmol/L (135-145)
[2021-11-17 09:09] LABS: Creatinine Urine 149.83 mg/dL
== END 2021-11-17 06:01 | disposition home or self-care (01) ==
LOC: HO.HSH4E 06:00
PROVIDERS: Visit Provider Internal Medicine Endocrinology, Diabetes & Metabolism
DX: D64.9 Anemia, unspecified (principal); E11.42 Type 2 diabetes mellitus with diabetic polyneuropathy
CPT/HCPCS: 36415; 80048; 82043; 83036; 85025

== ENCOUNTER 2021-11-20 | Outpatient (REF) | payer OTHER, SELFPAY ==
[2021-11-20 09:45] LABS: Cholesterol 195 mg/dL; HDL Cholesterol 32 mg/dL; LDL Cholesterol Calculated 116 mg/dl; Triglycerides 239 mg/dL
== END 2021-11-20 00:01 ==
LOC: HO.HSH4E
PROVIDERS: Visit Provider Internal Medicine
DX: E78.5 Hyperlipidemia, unspecified (principal)
CPT/HCPCS: 36415; 80061

== ENCOUNTER → 2022-03-31 14:05 | Outpatient (BNVA) | payer OTHER, SELFPAY | PROVIDERS: PCP Internal Medicine Endocrinology, Diabetes & Metabolism; Visit Provider Internal Medicine Cardiovascular Disease | DX: I48.0 Paroxysmal atrial fibrillation (principal); I10 Essential (primary) hypertension | CPT/HCPCS: 99212 ==

== ENCOUNTER 2022-11-08 05:53 | Outpatient (REF) | payer OTHER, SELFPAY ==
[2022-11-08 06:06] LABS: MANUAL DIFF FLAG NO
[2022-11-08 06:17] LABS: Basophils Percent Auto 0.5 % (0-2); Eosinophils Absolute Auto 0.2 X10*3/uL (0.0-0.4); Eosinophils Percent Auto 2.8 % (0-4); Hematocrit 40.8 % (42.0-52.0); Hemoglobin 13.5 g/dl (14.0-18.0); Imm Gran Abs Auto 0.02 X10*3/uL (0.00-0.03); Imm Gran Pct Auto 0.3 % (0.0-0.4); Lymphocytes Absolute Auto 2.5 X10*3/uL (1.2-4.9); Lymphocytes Percent Auto 33.1 % (20-40); Mean Corpuscular HGB Conc 33.1 g/dl (31.0-36.0); Mean Corpuscular Hemoglobin 28.9 pg (27.0-33.0); Mean Corpuscular Volume 87.4 fL (80.0-98.0); Mean Platelet Volume 10.1 fL (9.4-12.4); Monocytes Absolute Auto 0.5 X10*3/uL (0.1-1.2); Monocytes Percent Auto 6.6 % (2-11); Neutrophils Absolute Auto 4.2 x10*3/uL (2.0-8.3); Neutrophils Percent Auto 56.7 % (45-73); Platelet Count 163 X10*3/uL (160-400); Red Blood Count 4.67 X10*6/uL (4.60-5.80); Red Cell Distribution Width 13.2 % (11.0-16.0); White Blood Count 7.4 X10*3/uL (4.8-10.8)
[2022-11-08 06:31] LABS: Anion Gap 9 (12-20); Blood Urea Nitrogen 23 mg/dL (9-16); Calcium 9.3 mg/dL (8.4-10.2); Carbon Dioxide 31 mmol/L (22-29); Chloride 110 mmol/L (96-108); Estimated Glomerular Filt Rate > 60; Glucose Random 88 mg/dL (60-115); Potassium 3.9 mmol/L (3.3-5.1); Sodium 146 mmol/L (135-145)
[2022-11-08 07:44] LABS: Estimated Average Glucose 157 mg/dL; Hemoglobin A1c % 7.1 %
[2022-11-08 13:09] LABS: Creatinine Urine 123.56 mg/dL; Microalbum/Creatinine Ratio Ur 11.3 ug/mg cr
== END 2022-11-08 05:54 | disposition home or self-care (01) ==
LOC: HO.HSH4E 05:53
PROVIDERS: Visit Provider Internal Medicine Endocrinology, Diabetes & Metabolism
DX: E11.9 Type 2 diabetes mellitus without complications (principal)
CPT/HCPCS: 36415; 80048; 82043; 83036; 85025

== ENCOUNTER 2022-12-23 05:49 | Outpatient (REF) | payer OTHER, SELFPAY ==
[2022-12-23 08:35] LABS: Alanine Aminotransferase 17 U/L (0-40); Albumin Level 3.6 g/dL (3.5-5.0); Alkaline Phosphatase 89 U/L (39-117); Aspartate Amino Transferase 15 U/L (5-37); Bilirubin Direct 0.2 mg/dL (0.0-0.5); Bilirubin Total 0.6 mg/dL (0.0-1.0); Total Protein 5.9 g/dL (6.5-8.0)
== END 2022-12-23 05:50 | disposition home or self-care (01) ==
LOC: HO.HSH4E 05:49
PROVIDERS: Visit Provider Internal Medicine Endocrinology, Diabetes & Metabolism
DX: E11.9 Type 2 diabetes mellitus without complications (principal); I10 Essential (primary) hypertension
CPT/HCPCS: 36415; 80076

== ENCOUNTER 2023-10-01 07:26 | Outpatient (REF) | payer OTHER, SELFPAY ==
[2023-10-01 09:27] LABS: Influenza A PCR POSITIVE (Negative); Influenza B PCR NEGATIVE (Negative); Resp Syncy Virus RNA Qual PCR NEGATIVE (Negative); SARS COV2 PCR INHOUSE NEGATIVE (Negative)
== END 2023-10-01 07:27 | disposition home or self-care (01) ==
LOC: HO.HSH4E 07:26
PROVIDERS: Visit Provider Nurse Practitioner Acute Care
DX: R05.9 Cough, unspecified (principal); Z11.52 Encounter for screening for COVID-19; J06.9 Acute upper respiratory infection, unspecified
CPT/HCPCS: 0241U

== ENCOUNTER 2023-11-18 06:05 | Outpatient (REF) | payer OTHER, SELFPAY ==
[2023-11-18 06:10] LABS: MANUAL DIFF FLAG NO
[2023-11-18 06:48] LABS: Estimated Average Glucose 143 mg/dL; Hemoglobin A1c % 6.6 % (<6.0)
[2023-11-18 06:52] LABS: Alanine Aminotransferase 20 U/L (0-40); Albumin Level 3.7 g/dL (3.5-5.0); Alkaline Phosphatase 96 U/L (39-117); Anion Gap 13 (12-20); Aspartate Amino Transferase 14 U/L (5-37); Bilirubin Total 0.5 mg/dL (0.0-1.0); Blood Urea Nitrogen 25 mg/dL (9-16); Calcium 9.5 mg/dL (8.4-10.2); Carbon Dioxide 26 mmol/L (22-29); Chloride 106 mmol/L (96-108); Cholesterol 106 mg/dL (<200); Estimated Glomerular Filt Rate 54; Glucose Random 125 mg/dL (60-115); HDL Cholesterol 32 mg/dL (>40); LDL Cholesterol Calculated 34 mg/dL (<100); Sodium 141 mmol/L (135-145); Total Protein 6.2 g/dL (6.5-8.0); Triglycerides 202 mg/dL (<150)
[2023-11-18 06:59] LABS: Basophils Percent Auto 0.5 % (0-2); Eosinophils Absolute Auto 0.3 X10*3/uL (0.0-0.4); Eosinophils Percent Auto 3.3 % (0-4); Hematocrit 41.3 % (42.0-52.0); Hemoglobin 13.5 g/dl (14.0-18.0); Imm Gran Abs Auto 0.02 X10*3/uL (0.00-0.03); Imm Gran Pct Auto 0.2 % (0.0-0.4); Lymphocytes Absolute Auto 2.4 X10*3/uL (1.2-4.9); Lymphocytes Percent Auto 28.7 % (20-40); Mean Corpuscular HGB Conc 32.7 g/dl (31.0-36.0); Mean Corpuscular Hemoglobin 29.3 pg (27.0-33.0); Mean Corpuscular Volume 89.8 fL (80.0-98.0); Mean Platelet Volume 10.6 fL (9.4-12.4); Monocytes Absolute Auto 0.7 X10*3/uL (0.1-1.2); Monocytes Percent Auto 7.9 % (2-11); Neutrophils Absolute Auto 4.9 x10*3/uL (2.0-8.3); Neutrophils Percent Auto 59.4 % (45-73); Platelet Count 187 X10*3/uL (160-400); Red Cell Distribution Width 13.9 % (11.0-16.0); White Blood Count 8.3 X10*3/uL (4.8-10.8)
[2023-11-18 08:16] LABS: Creatinine Urine 155.47 mg/dL; Microalbum/Creatinine Ratio Ur 6.4 ug/mg cr (<30)
== END 2023-11-18 06:06 | disposition home or self-care (01) ==
LOC: HO.HSH4E 06:05
PROVIDERS: Visit Provider Internal Medicine Endocrinology, Diabetes & Metabolism
DX: E11.9 Type 2 diabetes mellitus without complications (principal)
CPT/HCPCS: 36415; 80053; 80061; 82043; 82570; 83036; 85025

== ENCOUNTER 2024-06-21 06:15 | Outpatient (REF) | payer OTHER, SELFPAY ==
[2024-06-21 07:09] LABS: Estimated Average Glucose 143 mg/dL; Hemoglobin A1C 154.0409 umol/L; Hemoglobin A1c % 6.6 % (<6.0); Total Hemoglobin (HGBA1C) 3156.5923 umol/L
== END 2024-06-21 06:16 | disposition home or self-care (01) ==
LOC: HO.HSH4E 06:15
PROVIDERS: Visit Provider Internal Medicine Endocrinology, Diabetes & Metabolism
DX: E11.9 Type 2 diabetes mellitus without complications (principal)
CPT/HCPCS: 36415; 83036

== ENCOUNTER 2024-10-01 12:18 | Inpatient (IN) | payer OTHER, SELFPAY ==
[2024-10-01] VITALS (17 sets, daily range): BP systolic 95–147; BP diastolic 35–77; PULSE 73–106; RESP 16–22; TEMP 37.3–38.3; O2SAT 90–95; BMI 43.9
--- NOTE | ~2024-10-01 | XR_ITS ---
EXAMINATION: XR CHEST CLINICAL INFORMATION: cp COMPARISON: 07/05/2021, 06/01/2021. TECHNIQUE: Frontal view of the chest was obtained. FINDINGS: Heart size is mildly prominent but may be magnified by AP technique. Aortic mural calcifications. Mediastinal and hilar contours normal. The lungs are clear bilaterally. No pneumothorax or effusion. No focal osseous or soft tissue abnormality. XR/XR chest 1V IMPRESSION: No active pulmonary disease. Electronically signed by: Milo Purcell MD 10/01/2024 02:10 PM EDT
--- NOTE | 2024-10-01 13:00 | PC.NURSE ---
Per ED MD, pt. to have gil placed.
--- NOTE | 2024-10-01 13:01 | ECG_ITS ---
Test Reason : AMS Blood Pressure : */* mmHG Vent. Rate : 86 BPM Atrial Rate : * BPM P-R Int : * ms QRS Dur : 88 ms QT Int : 360 ms P-R-T Axes : * -14 48 degrees QTcB Int : 430 ms Atrial fibrillation Abnormal ECG When compared with ECG of 15-Aug-2021 17:30, Atrial fibrillation has replaced Atrial flutter Criteria for Inferior infarct are no longer Present Referred By: Merly Campoverde Electronically Signed By: KAREN ALCANTAR MD
[2024-10-01] MEDS: 0.9 % Sodium Chloride 3,000 ML 3000 ML IV (13:16)
--- NOTE | 2024-10-01 13:21 | ED.AMS ---
HPI - Altered Mental Status General Chief Complaint: Altered Mental Status Stated Complaint: [facility], lethargy, sweating, hypergly, AMS Time Seen by Provider: 10/01/24 12:33 History of Present Illness HPI narrative: Patient is 84 years old history of hypertension history of paroxysmal AFib currently on Eliquis there is no trauma but alf staff reported change in mental status. History of diabetes on insulin. Patient unable to give detailed but baseline is awake alert oriented per alf staff. Related Data Home Medications ?Medication ?Instructions ?Recorded ?Confirmed acetaminophen 325 mg tablet 650 mg PO BEDTIME 06/01/21 03/31/22 amlodipine 5 mg tablet 5 mg PO BEDTIME 06/01/21 03/31/22 calcium 500 mg (as 1 tab PO DAILY 06/01/21 03/31/22 carbonate)-vitamin D3 5 mcg (200 unit) tablet (Calcium 500 + D) carboxymethylcellulose sodium 1 % 1 drp ophthalmic (eye) BID 06/01/21 03/31/22 eye drops cholecalciferol (vitamin D3) 25 25 mcg PO DAILY 06/01/21 03/31/22 mcg (1,000 unit) tablet docusate sodium 100 mg tablet 100 mg PO DAILY 06/01/21 03/31/22 gabapentin 400 mg capsule 400 mg PO BID 06/01/21 03/31/22 insulin glargine 100 unit/mL 70 unit subcut BEDTIME 06/01/21 03/31/22 subcutaneous solution (Lantus U-100 Insulin) insulin lispro 100 unit/mL 1 sliding scale dose subcut 06/01/21 03/31/22 subcutaneous solution USEASDIRECTD insulin lispro 100 unit/mL 10 unit subcut DAILY@1800 06/01/21 03/31/22 subcutaneous solution insulin lispro 100 unit/mL 12 unit subcut DAILY@1200 06/01/21 03/31/22 subcutaneous solution insulin lispro 100 unit/mL 14 unit subcut DAILY@0800 06/01/21 03/31/22 subcutaneous solution magnesium hydroxide 400 mg/5 mL 30 ml PO BEDTIME PRN Constipation 06/01/21 03/31/22 oral suspension (Milk of Magnesia) multivitamin with minerals 1 tab PO DAILY 06/01/21 03/31/22 tamsulosin 0.4 mg capsule 0.8 mg PO BEDTIME 06/01/21 03/31/22 valsartan 160 mg capsule 160 mg PO DAILY 06/01/21 03/31/22 vit C 250 mg-vit E 90 mg-zinc 40 2 tab PO DAILY 06/01/21 03/31/22 mg-copper 1 [id number] capsule (PreserVision AREDS-2) Previous Rx's ?Medication ?Instructions ?Recorded apixaban 5 mg tablet (Eliquis) 5 mg PO BID #0 tabs 06/04/21 cefuroxime axetil 500 mg tablet 500 mg PO Q12H #14 tabs 06/04/21 metoprolol succinate 25 mg 12.5 mg (1/2 x 25 mg) PO DAILY #30 06/04/21 tablet,extended release 24 hr tabs (Toprol XL) Allergies Allergy/AdvReac Type Severity Reaction Status Date / Time acetaminophen [Percocet] Allergy Unknown vomiting Verified 10/01/24 13:00 latex [LATEX] Allergy Unknown RASH Verified 10/01/24 13:00 oxycodone [Percocet] Allergy Unknown vomiting Verified 10/01/24 13:00 latex Allergy Unknown over long Uncoded 09/08/15 00:00 period of time Review of Systems Review of Systems: Positive change in mental status patient unable to give details PMFSH Past Medical History Medical History Feeling of incomplete bladder emptying Type 2 diabetes mellitus with diabetic neuropathy, unspecified Type 2 diabetes mellitus without complications Unspecified osteoarthritis, unspecified site Personal history of COVID-19 Benign prostatic hyperplasia without lower urinary tract symptoms 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 Personal history of other malignant neoplasm of skin Spondylosis without myelopathy or radiculopathy, lumbar region Essential (primary) hypertension Other vitamin B12 deficiency anemias Deficiency of other specified B group vitamins Hyperlipidemia, unspecified Actinic keratosis 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 A-fib Dementia HTN (hypertension) Social History Social History Household Members: None and Other Housing: Senior Living Alcohol intake: never Patient Tobacco Use Status: Tobacco use Unknown Advance Directives: Yes Advance Directives on File: Yes Advance Directives Date on File: 06/01/21 Do you have a plan to hurt others: No Plan service: Yes Current occupational status: retired Physical Exam ED Vital Signs: Vital Signs - 24 hr 10/01/24 12:49 10/01/24 12:51 10/01/24 13:04 Temperature 100.9 F H Pulse Rate 96 94 88 Respiratory Rate 16 22 H 17 Blood Pressure 102/36 L 102/36 L 96/35 L Pulse Oximetry 92 92 93 Oxygen Delivery Method Room Air Room Air Room Air 10/01/24 13:19 10/01/24 13:49 10/01/24 14:00 Temperature Pulse Rate 85 88 77 Respiratory Rate 17 16 18 Blood Pressure 95/41 L 135/42 L 128/45 L Pulse Oximetry 92 92 95 Oxygen Delivery Method Room Air Room Air 10/01/24 14:19 10/01/24 14:28 10/01/24 14:30 Temperature Pulse Rate 73 90 95 Respiratory Rate 18 17 16 Blood Pressure 130/38 L 138/59 L 121/65 Pulse Oximetry 93 94 94 Oxygen Delivery Method Room Air Room Air Room Air BMI result Body Mass Index 43.9 Appearance: Alert. Oriented X1. No acute distress. Eyes: Pupils equal, round and reactive to light. ENT: Pharynx normal. Neck: Normal inspection. Neck supple. No lymph nodes noted. No crepitus CVS: Normal heart rate and rhythm. Pulses normal. Normal S1 and S2 Respiratory: No respiratory distress. Breath sounds normal. No Wheezing. No rales Abdomen: Soft and nontender. No rigidity. No distention. good BS x4 Skin: Skin warm and dry. Normal skin color. Normal skin turgor. Extremities: No lower extremity edema. Neurovascular intact to all extremities. No Lacerations. Multiple wounds noted in the bilateral lower extremity appears to be more abrasion type. More chronic in nature. No acute redness. No discharge. Neuro: Oriented X 1. Right lower extremity seems contracted. Medications Administered Discontinued Medications Generic Name Dose Route Start Last Admin Trade Name Freq PRN Reason Stop Dose Admin Acetaminophen 1,000 mg in 100 mls @ 400 mls/hr 10/01/24 13:00 10/01/24 14:02 Ofirmev IV 10/01/24 13:14 Infused ONCE ONE Infusion Sodium Chloride 3,000 mls @ 3,000 mls/hr 10/01/24 13:01 10/01/24 14:16 Ns 30 ml/kg infuse over 1 hr (3000 ml) 10/01/24 14:00 Infused IV Infusion .Q1H STA Cefepime HCl 1 gm/ Sodium 50 mls @ 100 mls/hr 10/01/24 13:15 10/01/24 14:16 Chloride IV 10/01/24 13:44 Infused ONCE ONE Infusion Medical Decision Making Medical Decision Making [facility] Narrative: [facility] with altered mental status fever of 101. Sepsis alert was called patient given 30 cc/kilos fluid monitor in the ED. no acute distress. Patient's urine was grossly infected chest x-ray by my interpretation showed no acute focal infiltrate I reviewed the chest x-ray with the radiologist. Patient case consulted by the hospitalist team. Repeat focal exam for sepsis patient mental status much improved awake alert. Fever is down. Flu COVID RSV is still pending. Patient to be admitted for further evaluation the initial lactate was 2.9. Repeat lactate is being sent. Differential Diagnosis Differential Diagnoses: The differential diagnosis associated with the presentation includes Urinary tract infection, pneumonia Admission/Observation Consideration of admission/observation: Escalation of care including admission/observation considered Consult Healthcare Provider Management of the patient was discussed with: Hospitalist Lab Data [facility] Lab Attestation statement: I reviewed the patient's lab results. 10/01/24 13:15 10/01/24 13:15 Labs: Lab Results 10/01/24 10/01/24 10/01/24 Range/Units 13:15 13:44 13:46 WBC 17.5 H (4.8-10.8) X10*3/uL RBC 4.61 (4.60-5.80) X10*6/uL Hgb 13.2 L (14.0-18.0) g/dl Hct 40.9 L (42.0-52.0) % MCV 88.7 (80.0-98.0) fL MCH 28.6 (27.0-33.0) pg MCHC 32.3 (31.0-36.0) g/dl RDW 14.8 (11.0-16.0) % Plt Count 135 L D (160-400) X10*3/uL MPV 10.1 (9.4-12.4) fL Immature Gran % (Auto) 0.7 H (0.0-0.4) % Neut % (Auto) 84.5 H (45-73) % Lymph % (Auto) 4.4 L (20-40) % [place] % (Auto) 10.2 (2-11) % Eos % (Auto) 0.0 (0-4) % Baso % (Auto) 0.2 (0-2) % Lymph # (Auto) 0.8 L (1.2-4.9) X10*3/uL [place] # (Auto) 1.8 H (0.1-1.2) X10*3/uL Eos # (Auto) 0.0 (0.0-0.4) X10*3/uL Baso # (Auto) 0.0 (0.0-0.2) X10*3/uL Abs Immat Gran (auto) 0.12 H (0.00-0.03) X10*3/uL Absolute Neuts (auto) 14.7 H (2.0-8.3) x10*3/uL Absolute Nucleated RBC 0.000 (0.0-0.012) X10*3/uL Nucleated RBC % (auto) 0.0 (0.0-0.2) /100WBC Smear Tech's Comments VERIFIED Sodium 142 (135-145) mmol/L Potassium 3.8 (3.3-5.1) mmol/L Chloride 107 (96-108) mmol/L Carbon Dioxide 27 (22-29) mmol/L Anion Gap 12 (12-20) BUN 36 H (9-16) mg/dL Creatinine 1.70 H (0.5-1.4) mg/dL Estim Creat Clear Calc 45.6 Estimated GFR 39 POC Glucose 263 H (60-115) mg/dL Random Glucose 298 H (60-115) mg/dL Lactic Acid 2.9 H* (0.5-2.0) mmol/L Calcium 8.8 D (8.4-10.2) mg/dL Total Bilirubin 1.3 H (0.0-1.0) mg/dL Direct Bilirubin 0.6 H (0.0-0.5) mg/dL AST 18 (5-37) U/L ALT 17 (0-40) U/L Alkaline Phosphatase 109 (39-117) U/L Ammonia 36 (13-55) umol/L Total Creatine Kinase 88 (38-174) U/L Troponin I High Sens 55.0 H (<3.5-35.0) ng/L Total Protein 6.3 L (6.5-8.0) g/dL Albumin 3.4 L (3.5-5.0) g/dL Urine Color Urine Appearance Urine pH (5.0-9.0) Ur Specific [place] (1.005-1.025) Urine Protein (Neg-Trace) mg/dL Urine Glucose (UA) (Negative) mg/dL Urine Ketones (Negative) mg/dL Urine Blood (Negative) Urine Nitrite (Negative) Ur Leukocyte Esterase (Negative) Urine RBC (0-2) /HPF Urine WBC (0-5) /HPF Ur Squamous Epith Cells (0-2) /HPF Urine Bacteria (None Seen) Hyaline Casts (0-2) /LPF 10/01/24 Range/Units 14:21 WBC (4.8-10.8) X10*3/uL RBC (4.60-5.80) X10*6/uL Hgb (14.0-18.0) g/dl Hct (42.0-52.0) % MCV (80.0-98.0) fL MCH (27.0-33.0) pg MCHC (31.0-36.0) g/dl RDW (11.0-16.0) % Plt Count (160-400) X10*3/uL MPV (9.4-12.4) fL Immature Gran % (Auto) (0.0-0.4) % Neut % (Auto) (45-73) % Lymph % (Auto) (20-40) % [place] % (Auto) (2-11) % Eos % (Auto) (0-4) % Baso % (Auto) (0-2) % Lymph # (Auto) (1.2-4.9) X10*3/uL [place] # (Auto) (0.1-1.2) X10*3/uL Eos # (Auto) (0.0-0.4) X10*3/uL Baso # (Auto) (0.0-0.2) X10*3/uL Abs Immat Gran (auto) (0.00-0.03) X10*3/uL Absolute Neuts (auto) (2.0-8.3) x10*3/uL Absolute Nucleated RBC (0.0-0.012) X10*3/uL Nucleated RBC % (auto) (0.0-0.2) /100WBC Smear Tech's Comments Sodium (135-145) mmol/L Potassium (3.3-5.1) mmol/L Chloride (96-108) mmol/L Carbon Dioxide (22-29) mmol/L Anion Gap (12-20) BUN (9-16) mg/dL Creatinine (0.5-1.4) mg/dL Estim Creat Clear Calc Estimated GFR POC Glucose (60-115) mg/dL Random Glucose (60-115) mg/dL Lactic Acid (0.5-2.0) mmol/L Calcium (8.4-10.2) mg/dL Total Bilirubin (0.0-1.0) mg/dL Direct Bilirubin (0.0-0.5) mg/dL AST (5-37) U/L ALT (0-40) U/L Alkaline Phosphatase (39-117) U/L Ammonia (13-55) umol/L Total Creatine Kinase (38-174) U/L Troponin I High Sens (<3.5-35.0) ng/L Total Protein (6.5-8.0) g/dL Albumin (3.5-5.0) g/dL Urine Color Dark Yellow Urine Appearance Cloudy Urine pH 5.0 (5.0-9.0) Ur Specific [place] 1.020 (1.005-1.025) Urine Protein 100 (2+) H (Neg-Trace) mg/dL Urine Glucose (UA) Negative (Negative) mg/dL Urine Ketones Trace (Negative) mg/dL Urine Blood Large (3+) H (Negative) Urine Nitrite Negative (Negative) Ur Leukocyte Esterase Moderate (2+) H (Negative) Urine RBC 3-5 H (0-2) /HPF Urine WBC 6-10 (0-5) /HPF Ur Squamous Epith Cells 3-5 (0-2) /HPF Urine Bacteria 4+ (None Seen) Hyaline Casts 3-5 (0-2) /LPF Independent Interpretation I performed an independent interpretation of an: EKG (EKG showed atrial fibrillation heart rate is 90) and Plain X-Ray (Chest x-ray was grossly negative for pneumonia) Radiology Impression Discussion of test interpretation with radiology: I have reviewed the radiologist's reading. Critical Care Time Critical Care Time Critical Care Time: Yes Total Critical Care Time: 40 Attestation: I have personally provided 40 minutes of critical care time exclusive of time spent on separately billable procedures. ?Time includes review of lab data, radiology results, discussion with consultants, and monitoring for potential decompensation. ?Interventions were performed as documented above Discharge Plan Discharge Clinical Impression: Acute UTI Patient Disposition: Admitted As Inpatient Prescriptions: No Action acetaminophen 325 mg Tablet 650 mg PO BEDTIME gabapentin 400 mg Capsule 400 mg PO BID multivitamin with minerals Tablet 1 tab PO DAILY docusate sodium 100 mg Tablet 100 mg PO DAILY calcium carbonate-vitamin D3 [Calcium 500 + D] 500 mg(1,250mg) -200 unit Tablet 1 tab PO DAILY cholecalciferol (vitamin D3) 25 mcg (1,000 unit) Tablet 25 mcg PO DAILY PreserVision AREDS-2 250-90-40-1 mg Capsule 2 tab PO DAILY carboxymethylcellulose sodium 1 % Drops 1 drp OPHTHALMIC (EYE) BID valsartan 160 mg Capsule 160 mg PO DAILY Lantus U-100 Insulin 100 unit/mL Solution 70 unit SUBCUT BEDTIME amlodipine 5 mg Tablet 5 mg PO BEDTIME magnesium hydroxide [Milk of Magnesia] 400 mg/5 mL Suspension 30 ml PO BEDTIME PRN (Reason: Constipation) tamsulosin 0.4 mg Capsule 0.8 mg PO BEDTIME insulin lispro 100 unit/mL Solution 10 unit SUBCUT DAILY@1800 Rx Instructions: before supper insulin lispro 100 unit/mL Solution 12 unit SUBCUT DAILY@1200 Rx Instructions: before lunch insulin lispro 100 unit/mL Solution 1 sliding scale dose SUBCUT USEASDIRECTD Protocol: Insulin Correction Scale Less than or equal to 110 ---- Give (units): 0 111 to 150 Give (units): 0 151 to 200 Give (units): 2 201 to 250 Give (units): 4 251 to 300 Give (units): 6 301 to 350 Give (units): 8 Greater than 350 Give (units): 10 Call MD if Blood Glucose > : 350 insulin lispro 100 unit/mL Solution 14 unit SUBCUT DAILY@0800 Rx Instructions: before breakfast Eliquis 5 mg Tablet 5 mg PO BID Qty: 0 0RF metoprolol succinate [Toprol XL] 25 mg tablet extended release 24 hr 12.5 mg PO DAILY Qty: 30 0RF cefuroxime axetil 500 mg tablet 500 mg PO Q12H Qty: 14 0RF Print Language: Pashto
[2024-10-01 13:27] LABS: Basophils Percent Auto 0.2 % (0-2); Hematocrit 40.9 % (42.0-52.0); Hemoglobin 13.2 g/dl (14.0-18.0); Imm Gran Abs Auto 0.12 X10*3/uL (0.00-0.03); Imm Gran Pct Auto 0.7 % (0.0-0.4); Lymphocytes Absolute Auto 0.8 X10*3/uL (1.2-4.9); Lymphocytes Percent Auto 4.4 % (20-40); MANUAL DIFF FLAG SCAN; Mean Corpuscular HGB Conc 32.3 g/dl (31.0-36.0); Mean Corpuscular Hemoglobin 28.6 pg (27.0-33.0); Mean Corpuscular Volume 88.7 fL (80.0-98.0); Mean Platelet Volume 10.1 fL (9.4-12.4); Monocytes Absolute Auto 1.8 X10*3/uL (0.1-1.2); Monocytes Percent Auto 10.2 % (2-11); Neutrophils Absolute Auto 14.7 x10*3/uL (2.0-8.3); Neutrophils Percent Auto 84.5 % (45-73); Platelet Count 135 X10*3/uL (160-400); Red Blood Count 4.61 X10*6/uL (4.60-5.80); Red Cell Distribution Width 14.8 % (11.0-16.0); SCAN SMEAR FLAG 1; White Blood Count 17.5 X10*3/uL (4.8-10.8)
[2024-10-01 13:32] LABS: Ammonia 36 umol/L (13-55)
[2024-10-01 13:41] LABS: Alanine Aminotransferase 17 U/L (0-40); Albumin Level 3.4 g/dL (3.5-5.0); Alkaline Phosphatase 109 U/L (39-117); Anion Gap 12 (12-20); Aspartate Amino Transferase 18 U/L (5-37); Bilirubin Direct 0.6 mg/dL (0.0-0.5); Bilirubin Total 1.3 mg/dL (0.0-1.0); Blood Urea Nitrogen 36 mg/dL (9-16); Calcium 8.8 mg/dL (8.4-10.2); Carbon Dioxide 27 mmol/L (22-29); Chloride 107 mmol/L (96-108); Creatinine Clr Calc Pharmacy 45.6; Estimated Glomerular Filt Rate 39; Glucose Random 298 mg/dL (60-115); Potassium 3.8 mmol/L (3.3-5.1); Sodium 142 mmol/L (135-145); Total Protein 6.3 g/dL (6.5-8.0)
[2024-10-01] MEDS: cefEPime HCl 1 GM in 0.9 % Sodium Chloride 50 ML IV (13:46)
[2024-10-01 13:47] LABS: Glucose, Whole Blood 263 mg/dL (60-115)
[2024-10-01] MEDS: Acetaminophen 1,000 MG/100 ML PIGGYBACK 400 MG IV (13:47)
--- NOTE | 2024-10-01 14:00 | PC.NURSE ---
Beltran placed in pt. Dark yellow urine present. Sent ua to lab. Assisted by cherelle Smith.
[2024-10-01 14:04] LABS: SLIDE REVIEW VERIFIED
[2024-10-01 14:22] LABS: Lactic Acid 2.9 mmol/L (0.5-2.0)
[2024-10-01 14:36] LABS: Appearance Urine Cloudy; Color Urine Dark Yellow; Glucose Urine UA Negative (Negative); Leukocyte Esterase Urine Moderate (2+) (Negative); Nitrite Urine Negative (Negative); UMIC TRIGGER UACC YES; Urine Blood Large (3+) (Negative); Urine Ketones Trace mg/dL (Negative); Urine Protein 100 (2+) mg/dL (Neg-Trace)
[2024-10-01 14:49] LABS: Bacteria Urine 4+ (None Seen); UACC Culture Trigger YES
[2024-10-01 15:45] LABS: Lactic Acid 1.2 mmol/L (0.5-2.0)
[2024-10-01 15:58] LABS: Reflex Lactate? Lactic Acid Added
[2024-10-01 16:02] LABS: Influenza A PCR NEGATIVE (Negative); Influenza B PCR NEGATIVE (Negative); Resp Syncy Virus RNA Qual PCR NEGATIVE (Negative); SARS COV2 PCR INHOUSE NEGATIVE (Negative)
[2024-10-01 16:56] LABS: Troponin-I High Sensitivity 28.3 ng/L (<3.5-35.0)
--- NOTE | 2024-10-01 17:20 | PHA.MEDREC ---
Addendum entered by Fadi Flower 10/01/24 18:49: reviewed Original Note: Pharmacy Consult ? Medication Reconciliation Pharmacy has completed the medication reconciliation. Used list from facility.
--- NOTE | 2024-10-01 17:49 | P.HPHOSP_ITS ---
History of Present Illness Date of Service: 10/01/24 Attending physician on admission: Cornelia Garrido Chief Complaint: confusion, lethargy 84 year old male with history of insulin-dependent type 2 diabetes, spondylosis, PVD, paroxysmal atrial fibrillation anticoagulated with Eliquis, unspecified dementia, hypertension, BPH, lymphedema presents to the ED earlier today due to fevers up to 100.8, lethargy, and confusion. PHe is from the [facility]. However, patient is only oriented to self and is unable to provide any history. Apparently the patient received his COVID-19 booster on 09/29 and developed these symptoms subsequently. The patient's only complaint at this time is that he is unable to move his bowels. He is currently on a bedpan. On arrival, patient was febrile to 100.9 and blood pressure soft but no hypotension. He has leukocytosis of 17.5. Creatinine 1.70, BUN 36. Electrolytes within normal limits. Glucose 263. Initial lactic acid 2.9, repeat 1.2. Urinalysis with 2+ leukocytes, 3+ blood, 2+ protein, scant urinary sediment, scant squamous epithelial cells, 4+ bacteria. Negative for COVID-19, RSV, influenza. Chest x-ray negative for any acute cardiopulmonary abnormality. In the ED has been treated with cefepime, IV Tylenol and was given 3 L IVF per sepsis protocol. 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 Personal history of other malignant neoplasm of skin Spondylosis without myelopathy or radiculopathy, lumbar region Essential (primary) hypertension Other vitamin B12 deficiency anemias Deficiency of other specified B group vitamins Hyperlipidemia, unspecified Actinic keratosis 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 A-fib Dementia HTN (hypertension) Social History Household Members: None and Other Housing: Shelter Alcohol intake: never Patient Tobacco Use Status: Tobacco use Unknown Advance Directives: Yes Advance Directives on File: Yes Advance Directives Date on File: 06/01/21 Do you have a plan to hurt others: No Plan service: Yes Current occupational status: retired Meds Allergies Allergy/AdvReac Type Severity Reaction Status Date / Time acetaminophen [Percocet] Allergy Unknown vomiting Verified 10/01/24 13:00 latex [LATEX] Allergy Unknown RASH Verified 10/01/24 13:00 oxycodone [Percocet] Allergy Unknown vomiting Verified 10/01/24 13:00 latex Allergy Unknown over long Uncoded 09/08/15 00:00 period of time Active Medications: Current Medications Acetaminophen (Acetaminophen 325 Mg Tablet) 650 mg PO Q6H PRN PRN Reason: Pain, Mild 1-3,fever,headache Calcium Carbonate (Calcium Carbonate 750 Mg Tab.Chew) 750 mg PO Q4H PRN PRN Reason: Heartburn Ceftriaxone Sodium (Ceftriaxone Sodium 1 Gm Vial) 1 gm IVPUSH Q24H DANIEL Dextrose (Dextrose 50 % 25 Gm/50 Ml Syringe) 25 gm IVPUSH Q15M PRN; Protocol PRN Reason: per Hypoglycemia Standing Ord. Glucose (Glucose Gel 15 Gm Gel..Gram.) 15 gm PO Q15M PRN; Protocol PRN Reason: per Hypoglycemia Standing Ord. Sodium Chloride (Ns) 1,000 mls @ 100 mls/hr IVCONT .Q10H DANIEL Insulin Human Lispro (Insulin Lispro 100 Unit/Ml 3 Ml Vial) 0 unit SUBCUT QIDACHS [facility]; Protocol Magnesium Hydroxide (Milk Of Magnesia 30 Ml Oral.Susp) 30 ml PO DAILY PRN PRN Reason: Constipation Melatonin (Melatonin 3 Mg Tablet) 6 mg PO BEDTIME PRN PRN Reason: Insomnia Sodium Chloride (0.9 % Sodium Chloride Flush 3 Ml Syringe) 3 ml IVFLUSH QSHIFT [facility] Home Medications ?Medication ?Instructions ?Recorded ?Confirmed ?Last Taken ?Type acetaminophen 325 mg tablet 650 mg PO Q4H PRN pain or fever 06/01/21 10/01/24 09/30/24 16:07 History calcium 500 mg (as 1 tab PO DAILY 06/01/21 10/01/24 10/01/24 09:59 History carbonate)-vitamin D3 5 mcg (200 unit) tablet (Calcium 500 + D) carboxymethylcellulose sodium 1 % 1 drp ophthalmic (eye) BID 06/01/21 10/01/24 10/01/24 09:59 History eye drops gabapentin 400 mg capsule 400 mg PO TID 06/01/21 10/01/24 10/01/24 09:59 History insulin lispro 100 unit/mL 1 sliding scale dose subcut 06/01/21 10/01/24 05/31/21 History subcutaneous solution USEASDIRECTD insulin lispro 100 unit/mL 24 unit subcut TIDAC PRN BG >/=101 06/01/21 10/01/24 10/01/24 07:59 History subcutaneous solution magnesium hydroxide 400 mg/5 mL 30 ml PO BEDTIME PRN Constipation 06/01/21 10/01/24 05/27/21 History oral suspension (Milk of Magnesia) tamsulosin 0.4 mg capsule 0.8 mg PO BEDTIME 06/01/21 10/01/24 09/30/24 21:11 History apixaban 5 mg tablet (Eliquis) 5 mg PO Q12H 10/01/24 10/01/24 10/01/24 09:59 History furosemide 20 mg tablet 20 mg PO DAILY 10/01/24 10/01/24 10/01/24 09:59 History metoprolol succinate 25 mg 25 mg PO DAILY PRN HR>110 10/01/24 10/01/24 Unknown History tablet,extended release 24 hr (Toprol XL) ondansetron HCl 4 mg tablet 4 mg PO Q6H PRN Nausea And Vomiting 10/01/24 10/01/24 09/30/24 18:07 History polyethylene glycol 3350 17 17 g PO DAILY PRN Constipation 10/01/24 10/01/24 Unknown History gram/dose oral powder sodium phosphates 19 gram-7 133 ml [place] DAILY PRN Constipation 10/01/24 10/01/24 Unknown History gram/118 mL enema (Fleet Enema) Physical Exam 2 Vital Signs and Narrative: Vital Signs: Last Vital Signs Temp 99.1 F 10/01/24 15:34 Pulse 106 H 10/01/24 16:13 Resp 19 10/01/24 16:13 BP 124/41 L 10/01/24 16:13 Pulse Ox 95 10/01/24 16:13 O2 Del Method Room Air 10/01/24 16:13 BMI result Body Mass Index 43.9 Constitutional - Awake and Alert, No apparent distress Eyes - PERRLA, EOMI Cardiovascular - S1S2, RRR, No edema Respiratory - Normal lung expansion, Normal respiratory effort, No respiratory distress, CTA bilaterally Gastrointestinal - NT / ND; +BS; No rebound or guarding - Beltran catheter in place Extremities - no calf tenderness bilaterally, no swelling Skin - Warm/Dry Neurological - Alert & oriented to self, disoriented to time and place. Unable to provide history Results Labs 10/01/24 13:15 10/01/24 13:15 Labs: Laboratory Results - last 24 hr 10/01/24 10/01/24 10/01/24 13:15 13:44 13:46 MCV 88.7 MCH 28.6 MCHC 32.3 RDW 14.8 Plt Count 135 L D MPV 10.1 Immature Gran % (Auto) 0.7 H Neut % (Auto) 84.5 H Lymph % (Auto) 4.4 L [place] % (Auto) 10.2 Eos % (Auto) 0.0 Baso % (Auto) 0.2 Lymph # (Auto) 0.8 L [place] # (Auto) 1.8 H Eos # (Auto) 0.0 Baso # (Auto) 0.0 Abs Immat Gran (auto) 0.12 H Absolute Neuts (auto) 14.7 H Absolute Nucleated RBC 0.000 Nucleated RBC % (auto) 0.0 Smear Tech's Comments VERIFIED Anion Gap 12 Estim Creat Clear Calc 45.6 Estimated GFR 39 POC Glucose 263 H Random Glucose 298 H Lactic Acid 2.9 H* Calcium 8.8 D Total Bilirubin 1.3 H Direct Bilirubin 0.6 H AST 18 ALT 17 Alkaline Phosphatase 109 Ammonia 36 Total Creatine Kinase 88 Total Protein 6.3 L Albumin 3.4 L Urine Color Urine Appearance Urine pH Ur Specific [place] Urine Protein Urine Glucose (UA) Urine Ketones Urine Blood Urine Nitrite Ur Leukocyte Esterase Urine RBC Urine WBC Ur Squamous Epith Cells Urine Bacteria Hyaline Casts Influenza Type A (PCR) Influenza Type B (PCR) RSV RNA Qual (PCR) SARS-CoV-2 RNA (RT-PCR) 10/01/24 10/01/24 14:21 15:15 MCV MCH MCHC RDW Plt Count MPV Immature Gran % (Auto) Neut % (Auto) Lymph % (Auto) [place] % (Auto) Eos % (Auto) Baso % (Auto) Lymph # (Auto) [place] # (Auto) Eos # (Auto) Baso # (Auto) Abs Immat Gran (auto) Absolute Neuts (auto) Absolute Nucleated RBC Nucleated RBC % (auto) Smear Tech's Comments Anion Gap Estim Creat Clear Calc Estimated GFR POC Glucose Random Glucose Lactic Acid 1.2 Calcium Total Bilirubin Direct Bilirubin AST ALT Alkaline Phosphatase Ammonia Total Creatine Kinase Total Protein Albumin Urine Color Dark Yellow Urine Appearance Cloudy Urine pH 5.0 Ur Specific [place] 1.020 Urine Protein 100 (2+) H Urine Glucose (UA) Negative Urine Ketones Trace Urine Blood Large (3+) H Urine Nitrite Negative Ur Leukocyte Esterase Moderate (2+) H Urine RBC 3-5 H Urine WBC 6-10 Ur Squamous Epith Cells 3-5 Urine Bacteria 4+ Hyaline Casts 3-5 Influenza Type A (PCR) NEGATIVE Influenza Type B (PCR) NEGATIVE RSV RNA Qual (PCR) NEGATIVE SARS-CoV-2 RNA (RT-PCR) NEGATIVE Imaging Radiologist's Impressions: Impressions Chest X-Ray 10/01/24 13:01 IMPRESSION: No active pulmonary disease. Electronically signed by: Milo Purcell MD 10/01/2024 02:10 PM EDT RP Assessment and Plan (1) Acute UTI: Status: Acute (2) Sepsis: Status: Acute Plan 84 year old male with history of insulin-dependent type 2 diabetes, spondylosis, PVD, paroxysmal atrial fibrillation anticoagulated with Eliquis, unspecified dementia, hypertension, BPH, lymphedema admitted for further management of acute metabolic encephalopathy in the setting of urinary tract infection Acute metabolic encephalopathy due to UTI with sepsis Leukocytosis 17.5, febrile, tachypneic, tachycardic. Lactic acidosis due to hypoperfusion from hypovolemia. No severe sepsis/shock UA with 2+ leukocytes, negative nitrites, 3+ blood, scant urinary sediment 4+ bacteria IV ceftriaxone (initiated 10/01) Monitor mentation Follow cultures, CBC Acute lactic acidosis Due to hypoperfusion related to hypovolemia. No severe sepsis Acute kidney injury Prerenal due to hypoperfusion/hypovolemia Continue IVF Avoid nephrotoxins Monitor I&O Follow renal function/lytes Insulin-dependent type 2 diabetes with hyperglycemia POC glucose, diabetic diet Sliding scale insulin Paroxysmal atrial fibrillation Continue Eliquis for anticoagulation Continue metoprolol for rate control Unspecified dementia See above Hypertension Continue metoprolol BPH Continue Flomax PVD Continue Lasix DVT prophylaxis-Eliquis DNR/DNI per MOLST form Patient requires inpatient stay at least 2 midnights for management of acute metabolic encephalopathy related to UTI with sepsis which will require IV antibiotics and close monitoring of mentation as well as close monitoring of hemodynamics to monitor for and prevent decompensation Quality Stroke Does the patient have a stroke diagnosis?: No VTE Prior VTE?: No VTE Risk Level:: Medical - moderate - high VTE Device Contraindication: Treatment Not Indicated VTE Drug Contraindication: N/A - Med Ordered
--- NOTE | 2024-10-01 20:00 | PC.NURSE ---
Informed ED MD contreras Admitting Pool, that third lactic was 2.1. No new orders at this time.
[2024-10-01 20:51] LABS: Reflex Lactate? 2 Y
[2024-10-01 20:58] LABS: Glucose, Whole Blood 238 mg/dL (60-115)
[2024-10-01] MEDS: Tamsulosin HCL 0.4 MG CAPSULE 0.8 MG PO (21:11)
[2024-10-01] MEDS: Apixaban 5 MG TABLET PO (21:12)
[2024-10-01] MEDS: cefTRIAXone sodium 1 GM VIAL IVPUSH (21:12)
[2024-10-01] MEDS: 0.9 % Sodium Chloride 1,000 ML 100 ML IVCONT (21:15)
[2024-10-01 21:28] LABS: ~Lactic Acid-LAB USE ONLY 1.6 mmol/L (0.5-2.0)
--- NOTE | 2024-10-01 23:44 | PC.NURSE ---
Report given to MARYCARMEN Nathan.
[2024-10-02] VITALS (13 sets, daily range): BP systolic 109–154; BP diastolic 25–74; PULSE 89–119; RESP 16–20; TEMP 36.8–37.1; O2SAT 92–98
--- NOTE | 2024-10-02 | PC.NURSE ---
Report taken from Lashae RN assumed care of pt at this time. A&Ox2 skin pwd respirations even unlabored. Offers no complaints. Afib on monitor. Beltran catheter draining bloody urine. Awaiting bed assignment for admission, aware of plan of care.
[2024-10-02] MEDS: 0.9 % Sodium Chloride Flush 3 ML SYRINGE IVFLUSH (00:35)
--- NOTE | 2024-10-02 01:30 | PC.NURSE ---
Pt fluids were hung to gravity by previous RN, order for 100ml/hr. 900ml infused already- infusion stopped and hospitalist notified.
[2024-10-02] MEDS: 0.9 % Sodium Chloride 1,000 ML 100 ML IVCONT ×2 (01:50→13:13)
--- NOTE | 2024-10-02 01:50 | PC.NURSE ---
New liter of IVF hung on pump and infusing at 100ml/hr per hospitalist order.
--- NOTE | 2024-10-02 03:35 | PC.NURSE ---
Report given to Annika CONROY pt exits my care at this time.
[2024-10-02] MEDS: Apixaban 5 MG TABLET PO ×2 (05:55→18:01)
[2024-10-02 07:26] LABS: MANUAL DIFF FLAG NO
[2024-10-02 07:32] LABS: Basophils Percent Auto 0.1 % (0-2); Eosinophils Percent Auto 0.1 % (0-4); Hemoglobin 12.4 g/dl (14.0-18.0); Imm Gran Abs Auto 0.09 X10*3/uL (0.00-0.03); Imm Gran Pct Auto 0.9 % (0.0-0.4); Lymphocytes Absolute Auto 0.7 X10*3/uL (1.2-4.9); Lymphocytes Percent Auto 7.6 % (20-40); Mean Corpuscular HGB Conc 32.6 g/dl (31.0-36.0); Mean Corpuscular Hemoglobin 28.6 pg (27.0-33.0); Mean Corpuscular Volume 87.6 fL (80.0-98.0); Mean Platelet Volume 10.5 fL (9.4-12.4); Monocytes Absolute Auto 0.9 X10*3/uL (0.1-1.2); Neutrophils Percent Auto 82.3 % (45-73); Platelet Count 111 X10*3/uL (160-400); Red Blood Count 4.34 X10*6/uL (4.60-5.80); Red Cell Distribution Width 14.6 % (11.0-16.0); White Blood Count 9.7 X10*3/uL (4.8-10.8)
[2024-10-02 07:35] LABS: Glucose, Whole Blood 258 mg/dL (60-115)
[2024-10-02] MEDS: Insulin Lispro 100 UNIT/ML 3 ML VIAL SUBCUT ×4 (07:36→20:50)
[2024-10-02 07:45] LABS: ~Lactic Acid-LAB USE ONLY 2.1 mmol/L (0.5-2.0)
[2024-10-02 07:47] LABS: Anion Gap 10 (12-20); Blood Urea Nitrogen 30 mg/dL (9-16); Calcium 8.3 mg/dL (8.4-10.2); Carbon Dioxide 24 mmol/L (22-29); Chloride 113 mmol/L (96-108); Creatinine Clr Calc Pharmacy 68.1; Estimated Glomerular Filt Rate > 60; Glucose Random 270 mg/dL (60-115); Potassium 3.8 mmol/L (3.3-5.1); Sodium 143 mmol/L (135-145)
[2024-10-02] MEDS: Calcium + Vitamin D 250 MG TABLET 500 MG PO (09:26)
[2024-10-02] MEDS: Gabapentin 400 MG CAPSULE PO ×3 (09:26→20:50)
--- NOTE | 2024-10-02 10:12 | MHC.CM.PN ---
PT FROM [facility] WHERE HE WILL RETURN BY BLS WHEN DCD
--- NOTE | 2024-10-02 11:50 | PC.NURSE ---
Pt intermittently sleeping this morning. Took morning meds whole with no issues. [place] changed and pt cleaned to best of RN and tech ability. NS infusing in right AC. Pt denies pain
[2024-10-02 13:19] LABS: Glucose, Whole Blood 214 mg/dL (60-115)
--- NOTE | 2024-10-02 14:36 | P.PNIM_ITS ---
Subjective Subjective Date of Service: 10/02/24 Interval History: confused fever resolved endorses dysuria Review of Systems Review of Systems: Yes all other systems are reviewed and are negative Physical Exam 2 Vital Signs: Vital Signs: Last Vital Signs Temp 98.3 F 10/02/24 13:52 Pulse 96 10/02/24 13:52 Resp 18 10/02/24 13:52 BP 116/37 L 10/02/24 13:52 Pulse Ox 93 10/02/24 13:52 O2 Del Method Room Air 10/02/24 13:52 O2 Flow Rate 2 10/02/24 03:33 BMI result Body Mass Index 43.9 Gen: in no acute distress HEENT: sclera anicteric, moist mucus membranes Neck: supple Lungs: clear to auscultation bilaterally Heart: regular rate and rhythm, no murmurs Abd: soft, non-tender, non-distended, obese : suprapubic tenderness Ext: no edema Skin: warm/well-perfused Neuro: alert and oriented to self only, no focal findings Psych: appropriate affect Objective Data Active Medications Acetaminophen (Acetaminophen 325 Mg Tablet) 650 mg PO Q6H PRN PRN Reason: Pain, Mild 1-3,fever,headache Apixaban (Apixaban 5 Mg Tablet) 5 mg PO Q12H [facility] Last Admin: 10/02/24 05:55 Dose: 5 mg Documented By: CHELITA Artificial Tears (Artificial Tears 15 Ml Drops) 1 drop EYE-BOTH BID [facility] Last Admin: 10/02/24 09:26 Dose: Not Given Documented By: GOPI Non-Admin Reason: Patient Refused Calcium Carbonate (Calcium Carbonate 750 Mg Tab.Chew) 750 mg PO Q4H PRN PRN Reason: Heartburn Calcium Carbonate/Cholecalciferol (Calcium + Vitamin D 250 Mg Tablet) 500 mg PO DAILY [facility] Last Admin: 10/02/24 09:26 Dose: 500 mg Documented By: GOPI Ceftriaxone Sodium (Ceftriaxone Sodium 1 Gm Vial) 1 gm IVPUSH Q24H [facility] Last Admin: 10/01/24 21:12 Dose: 1 gm Documented By: KATHERIN Dextrose (Dextrose 50 % 25 Gm/50 Ml Syringe) 25 gm IVPUSH Q15M PRN; Protocol PRN Reason: per Hypoglycemia Standing Ord. Gabapentin (Gabapentin 400 Mg Capsule) 400 mg PO TID [facility] Last Admin: 10/02/24 09:26 Dose: 400 mg Documented By: GOPI Glucose (Glucose Gel 15 Gm Gel..Gram.) 15 gm PO Q15M PRN; Protocol PRN Reason: per Hypoglycemia Standing Ord. Sodium Chloride (Ns) 1,000 mls @ 100 mls/hr IVCONT .Q10H [facility] Last Admin: 10/02/24 13:13 Dose: 100 mls/hr Documented By: GOPI Insulin Human Lispro (Insulin Lispro 100 Unit/Ml 3 Ml Vial) 0 unit SUBCUT QIDACHS [facility]; Protocol Last Admin: 10/02/24 13:12 Dose: 4 unit Documented By: GOPI Magnesium Hydroxide (Milk Of Magnesia 30 Ml Oral.Susp) 30 ml PO DAILY PRN PRN Reason: Constipation Magnesium Hydroxide (Milk Of Magnesia 30 Ml Oral.Susp) 30 ml PO BEDTIME PRN PRN Reason: Constipation Melatonin (Melatonin 3 Mg Tablet) 6 mg PO BEDTIME PRN PRN Reason: Insomnia Metoprolol Succinate (Metoprolol Succinate Er 25 Mg Tab.Er.24h) 25 mg PO DAILY PRN; Protocol PRN Reason: HR>110 Polyethylene Glycol (Polyethylene Glycol 3350 17 Gm Powd.Pack) 17 gm PO DAILY PRN PRN Reason: Constipation Sodium Biphosphate/Sodium Phosphate (Sodium Phosphate,Iron-Dibasic 133 Ml Enema) 133 ml [place] DAILY PRN PRN Reason: Constipation Sodium Chloride (0.9 % Sodium Chloride Flush 3 Ml Syringe) 3 ml IVFLUSH QSHIFT [facility] Last Admin: 10/02/24 07:37 Dose: Not Given Documented By: GOPI Non-Admin Reason: IV Running Tamsulosin HCl (Tamsulosin Hcl 0.4 Mg Capsule) 0.8 mg PO BEDTIME [facility] Last Admin: 10/01/24 21:11 Dose: 0.8 mg Documented By: LAURIIT Labs 10/02/24 07:10 10/02/24 07:10 Labs: Laboratory Results - last 24 hr 10/01/24 10/01/24 10/01/24 14:21 15:15 18:47 MCV MCH MCHC RDW Plt Count MPV Immature Gran % (Auto) Neut % (Auto) Lymph % (Auto) Iron % (Auto) Eos % (Auto) Baso % (Auto) Lymph # (Auto) Iron # (Auto) Eos # (Auto) Baso # (Auto) Abs Immat Gran (auto) Absolute Neuts (auto) Absolute Nucleated RBC Nucleated RBC % (auto) Anion Gap Estim Creat Clear Calc Estimated GFR POC Glucose Random Glucose Lactic Acid 1.2 Lactic Acid F/U @ 2Hr 2.1 H* Lactic Acid F/U @ 4Hr Calcium Urine Color Dark Yellow Urine Appearance Cloudy Urine pH 5.0 Ur Specific Ruth 1.020 Urine Protein 100 (2+) H Urine Glucose (UA) Negative Urine Ketones Trace Urine Blood Large (3+) H Urine Nitrite Negative Ur Leukocyte Esterase Moderate (2+) H Urine RBC 3-5 H Urine WBC 6-10 Ur Squamous Epith Cells 3-5 Urine Bacteria 4+ Hyaline Casts 3-5 Influenza Type A (PCR) NEGATIVE Influenza Type B (PCR) NEGATIVE RSV RNA Qual (PCR) NEGATIVE SARS-CoV-2 RNA (RT-PCR) NEGATIVE 10/01/24 10/01/24 10/02/24 20:00 21:06 07:10 MCV 87.6 MCH 28.6 MCHC 32.6 RDW 14.6 Plt Count 111 L MPV 10.5 Immature Gran % (Auto) 0.9 H Neut % (Auto) 82.3 H Lymph % (Auto) 7.6 L Iron % (Auto) 9.0 Eos % (Auto) 0.1 Baso % (Auto) 0.1 Lymph # (Auto) 0.7 L Iron # (Auto) 0.9 Eos # (Auto) 0.0 Baso # (Auto) 0.0 Abs Immat Gran (auto) 0.09 H Absolute Neuts (auto) 8.0 Absolute Nucleated RBC 0.000 Nucleated RBC % (auto) 0.0 Anion Gap 10 L Estim Creat Clear Calc 68.1 Estimated GFR > 60 POC Glucose 238 H Random Glucose 270 H Lactic Acid Lactic Acid F/U @ 2Hr Lactic Acid F/U @ 4Hr 1.6 Calcium 8.3 L Urine Color Urine Appearance Urine pH Ur Specific Ruth Urine Protein Urine Glucose (UA) Urine Ketones Urine Blood Urine Nitrite Ur Leukocyte Esterase Urine RBC Urine WBC Ur Squamous Epith Cells Urine Bacteria Hyaline Casts Influenza Type A (PCR) Influenza Type B (PCR) RSV RNA Qual (PCR) SARS-CoV-2 RNA (RT-PCR) 10/02/24 10/02/24 07:32 13:08 MCV MCH MCHC RDW Plt Count MPV Immature Gran % (Auto) Neut % (Auto) Lymph % (Auto) Iron % (Auto) Eos % (Auto) Baso % (Auto) Lymph # (Auto) Iron # (Auto) Eos # (Auto) Baso # (Auto) Abs Immat Gran (auto) Absolute Neuts (auto) Absolute Nucleated RBC Nucleated RBC % (auto) Anion Gap Estim Creat Clear Calc Estimated GFR POC Glucose 258 H 214 H Random Glucose Lactic Acid Lactic Acid F/U @ 2Hr Lactic Acid F/U @ 4Hr Calcium Urine Color Urine Appearance Urine pH Ur Specific Ruth Urine Protein Urine Glucose (UA) Urine Ketones Urine Blood Urine Nitrite Ur Leukocyte Esterase Urine RBC Urine WBC Ur Squamous Epith Cells Urine Bacteria Hyaline Casts Influenza Type A (PCR) Influenza Type B (PCR) RSV RNA Qual (PCR) SARS-CoV-2 RNA (RT-PCR) Microbiology Microbiology Results: Microbiology 10/01/24 Unknown Urine Culture - Preliminary Urine clean catch - Clean Catch Midstream Culture in progress. Assessment and Plan (1) Acute UTI: Status: Acute (2) Sepsis: Status: Acute Plan d2 for 84yo M resident of [facility] with DM2, spondylosis, pAF on apixaban, PVD, dementia, HTN, BPH, lymphedema; admitted for sepsis due to UTI acute encephalopathy due to sepsis/UTI - leukocytosis resolved; follow UCx + BCx; 10/01- ceftriaxone prerenal LISA acute lactic acidosis due to hypovolemia - resolved after IV fluids; held furosemide pAF - continue prn metoprolol succinate for HR >110 - continue apixaban BPH - continue tamsulosin DM2 - ines-dose lispro morbid obesity - diet/exercise counseling VTE ppx - apixaban Total time managing care of this patient today: 35 minutes. Quality Stroke Does the patient have a stroke diagnosis?: No VTE Prior VTE?: No VTE Risk Level:: Medical - moderate - high VTE Device Contraindication: Treatment Not Indicated VTE Drug Contraindication: N/A - Med Ordered
--- NOTE | 2024-10-02 16:26 | PC.NURSE ---
Addendum entered by Janett Stewart 10/02/24 16:34: orders placed by provider, NS increaed to 125 mL/hr Original Note: Provider alerted of low diastolic BPs
[2024-10-02] MEDS: cefTRIAXone sodium 1 GM VIAL IVPUSH (17:23)
[2024-10-02 18:28] LABS: Glucose, Whole Blood 247 mg/dL (60-115)
--- NOTE | 2024-10-02 18:33 | PC.NURSE ---
Pt being fed 1:1, does better eating this way
--- NOTE | 2024-10-02 19:02 | PC.NURSE ---
assumed care of patient at 1900. report received from Janett CONROY
[2024-10-02] MEDS: Tamsulosin HCL 0.4 MG CAPSULE 0.8 MG PO (20:50)
--- NOTE | 2024-10-02 21:35 | PC.NURSE ---
pt medicated with nighttime medications. resting comfortably in no apparent distress, offers no current complaints. call harper within reach, plan of care continues.
[2024-10-02] MEDS: Artificial Tears 15 ML DROPS 1 DROP EYE-BOTH (22:07)
[2024-10-02] MEDS: 0.9 % Sodium Chloride 1,000 ML 125 ML IVCONT (22:11)
--- NOTE | 2024-10-03 | ECG_ITS ---
Test Reason : TACHY Blood Pressure : */* mmHG Vent. Rate : 92 BPM Atrial Rate : * BPM P-R Int : * ms QRS Dur : 84 ms QT Int : 342 ms P-R-T Axes : * -20 41 degrees QTcB Int : 422 ms Atrial fibrillation with premature ventricular or aberrantly conducted complexes Abnormal ECG When compared with ECG of 01-Oct-2024 13:28, No significant change was found Referred By: Chirag Francis Electronically Signed By: KAREN ALCANTAR MD
[2024-10-03 00:48] VITALS: BP 123/42; PULSE 104; RESP 22; TEMP 36.7; O2SAT 93
[2024-10-03 03:51] VITALS: BP 110/48; PULSE 105; RESP 20; TEMP 36.8; O2SAT 96
[2024-10-03 04:49] LABS: Glucose, Whole Blood 327 mg/dL (60-115)
[2024-10-03 06:06] LABS: Anion Gap 12 (12-20); Blood Urea Nitrogen 32 mg/dL (9-16); Calcium 8.6 mg/dL (8.4-10.2); Carbon Dioxide 24 mmol/L (22-29); Chloride 113 mmol/L (96-108); Creatinine Clr Calc Pharmacy 64.1; Estimated Glomerular Filt Rate 57; Glucose Random 300 mg/dL (60-115); Potassium 3.9 mmol/L (3.3-5.1); Sodium 145 mmol/L (135-145)
[2024-10-03] MEDS: 0.9 % Sodium Chloride 1,000 ML 125 ML IVCONT (06:40)
--- NOTE | 2024-10-03 07:00 | CA_ITS ---
Transthoracic Echocardiogram Patient (Last, First, Middle): Marty Hannah, Gender: Male Date of : 1940 Age: 84 Procedure Date: 10/03/2024 Procedure Type: Transthoracic Echocardiogram Location: S3E Height: 175. cm Weight: 134.72 kg BSA: 2.44 m2 Heart Rate: 111 bpm BP: 110 / 48 mmHg Short Order Cook: NEDRA Aguilar MD: Chirag Francis MD Clinical Dietitian: David Sharma MD Symptoms: hypotension, wide pulse pressur Study Quality: Technically Difficult ECG Rhythm: Atrial Fibrillation w rvr Conclusions: - 1. Technically limited study despite use of contrast agent 2. Hyperdynamic LV EF of greater than 70% 3. Limited evaluation of cardiac valves Findings Procedure Information Contrast agent, definity, is being given per protocol without apparent complications. Left Ventricle Normal left ventricular cavity size. The left ventricular systolic function is hyperdynamic. The visually estimated ejection fraction is >70%. Diastolic function is indeterminate on the basis of available data. Right Ventricle The right ventricle was not well visualized. Atria The left atrium was not well visualized. Interatrial shunt cannot be excluded. The right atrium was not well visualized. Aortic Valve The aortic valve was not well visualized. There is no aortic valve stenosis. Mitral Valve The mitral valve was not well visualized. Pulmonic Valve The pulmonic valve was not well visualized. Tricuspid Valve The tricuspid valve was not well visualized. Great Vessels The aorta was not well visualized. The pulmonary artery was not well visualized. Venous The inferior vena cava was not well visualized. Pericardium/Pleural The pericardium was not well visualized. Measurements 2D Linear Measurements IVSd: 1.06 0.6-0.9/0.6-1.0 cm LVIDd: 5.38 3.9-5.3/4.2-5.9 cm LVIDd Index: 2.20 2.4-3.2/2.2-3.1 cm/m2 LVIDs: 3.74 2.0-3.6 cm LVPWd: 1.05 0.7-1.1 cm LA Diam: 4.00 2.7-3.8/3.0-4.0 cm LAIDs Index: 1.64 1.5-2.3 cm/m2 LV Mass: 275.05 67-162/88-224 g LV Mass Index: 112.72 43-95/49-115 g/m2 LVOT Diam: 2.40 3.0+(-)1.3 cm 2D Systolic Function EF 4C: 73.60 >55% EF 2C: 72.20 >55% EF BiP: 72.00 >55% Mitral Valve MV Pk E: 1.10 MV Decel Time: 210.00 E'Lateral: 9.98 E'Medial: 7.87 E/E' Med: 14.00 E/E' Lat: 11.00 PHT: 62.00 MVA PHT: 3.[address] [facility]: 5.28 Aortic Valve AoV Pk Casey: 1.27 AoV Mn Casey: 0.92 AoV VTI: 0.22 AoV Pk Grad: 6.00 Aov Mn Grad: 4.00 CLARI Cont.VTI: 3.96 LVOT LVOT Pk Casey: 1.08 LVOT Mn Casey: 0.80 LVOT VTI: 0.20 LVOT Pk Grad: 5.00 LVOT Mn Grad: 3.00 LVOT Diam: 2.40 LVOT Area: 4.52 Diastolic Function MV Pk E: 1.10 E'Medial: 7.87 E/E' Med: 14.00 E' Laterial: 9.98 E/E' Lat: 11.00 Right Ventricle TAPSE (mm): 18.00 TVS' Casey: 13.00 Great Vessels Aorta Sinus of Valsalva: 4.00 2.0-3.5 cm Ao Asc: 3.80 2.1-3.4 cm Pulmonary Valve PV Pk Casey: 0.90 Peak PV Grad: 3.00 Updated in Other Vendor System with Status of Final David Sharma MD electronically signed on 10/03/2024 12:36:09 PM with status of Final
[2024-10-03] MEDS: Insulin Lispro 100 UNIT/ML 3 ML VIAL SUBCUT ×4 (07:10→20:24)
[2024-10-03] MEDS: Apixaban 5 MG TABLET PO ×2 (07:10→18:05)
[2024-10-03 07:56] LABS: Glucose, Whole Blood 267 mg/dL (60-115)
[2024-10-03 08:00] VITALS: BP 154/75; PULSE 112; RESP 20; TEMP 36.6; O2SAT 96
[2024-10-03 08:37] LABS: Glucose, Whole Blood 300 mg/dL (60-115)
[2024-10-03] MEDS: Calcium + Vitamin D 250 MG TABLET 500 MG PO (08:55)
[2024-10-03] MEDS: Gabapentin 400 MG CAPSULE PO ×3 (08:57→19:28)
[2024-10-03] MEDS: Artificial Tears 15 ML DROPS 1 DROP EYE-BOTH ×2 (09:07→19:29)
--- NOTE | 2024-10-03 09:48 | HO.PM.IMPN ---
Subjective Subjective Date of Service: 10/03/24 Interval History: afebrile since admission denies urinary pain denies cough Review of Systems Review of Systems: Yes all other systems are reviewed and are negative Physical Exam Vital Signs: Vital Signs: Last Vital Signs Temp 97.8 F 10/03/24 08:00 Pulse 112 H 10/03/24 08:00 Resp 20 10/03/24 08:00 BP 154/75 H 10/03/24 08:00 Pulse Ox 96 10/03/24 08:00 O2 Del Method Room Air 10/03/24 08:00 O2 Flow Rate 2 10/02/24 03:33 BMI result Body Mass Index 43.9 Gen: in no acute distress HEENT: sclera anicteric, moist mucus membranes Neck: supple Lungs: clear to auscultation bilaterally Heart: irregular, slightly fast, no murmurs Abd: soft, non-tender, non-distended, obese : suprapubic tenderness Ext: no edema Skin: warm/well-perfused Neuro: alert and oriented to self only, no focal findings Psych: appropriate affect Objective Data Active Medications Acetaminophen (Acetaminophen 325 Mg Tablet) 650 mg PO Q6H PRN PRN Reason: Pain, Mild 1-3,fever,headache Apixaban (Apixaban 5 Mg Tablet) 5 mg PO Q12H [facility] Last Admin: 10/03/24 07:10 Dose: 5 mg Documented By: AHMET Artificial Tears (Artificial Tears 15 Ml Drops) 1 drop EYE-BOTH BID [facility] Last Admin: 10/03/24 09:07 Dose: 1 drop Documented By: SHIRA Calcium Carbonate (Calcium Carbonate 750 Mg Tab.Chew) 750 mg PO Q4H PRN PRN Reason: Heartburn Calcium Carbonate/Cholecalciferol (Calcium + Vitamin D 250 Mg Tablet) 500 mg PO DAILY [facility] Last Admin: 10/03/24 08:55 Dose: 500 mg Documented By: SHIRA Ceftriaxone Sodium (Ceftriaxone Sodium 1 Gm Vial) 1 gm IVPUSH Q24H [facility] Last Admin: 10/02/24 17:23 Dose: 1 gm Documented By: GOPI Dextrose (Dextrose 50 % 25 Gm/50 Ml Syringe) 25 gm IVPUSH Q15M PRN; Protocol PRN Reason: per Hypoglycemia Standing Ord. Gabapentin (Gabapentin 400 Mg Capsule) 400 mg PO TID [facility] Last Admin: 10/03/24 08:57 Dose: 400 mg Documented By: SHIRA Glucose (Glucose Gel 15 Gm Gel..Gram.) 15 gm PO Q15M PRN; Protocol PRN Reason: per Hypoglycemia Standing Ord. Sodium Chloride (Ns) 1,000 mls @ 125 mls/hr IVCONT .Q8H [facility] Last Admin: 10/03/24 06:40 Dose: 125 mls/hr Documented By: EARL Insulin Human Lispro (Insulin Lispro 100 Unit/Ml 3 Ml Vial) 0 unit SUBCUT QIDACHS [facility]; Protocol Last Admin: 10/03/24 07:10 Dose: 6 unit Documented By: AHMET Magnesium Hydroxide (Milk Of Magnesia 30 Ml Oral.Susp) 30 ml PO DAILY PRN PRN Reason: Constipation Magnesium Hydroxide (Milk Of Magnesia 30 Ml Oral.Susp) 30 ml PO BEDTIME PRN PRN Reason: Constipation Melatonin (Melatonin 3 Mg Tablet) 6 mg PO BEDTIME PRN PRN Reason: Insomnia Metoprolol Succinate (Metoprolol Succinate Er 25 Mg Tab.Er.24h) 25 mg PO DAILY PRN; Protocol PRN Reason: HR>110 Polyethylene Glycol (Polyethylene Glycol 3350 17 Gm Powd.Pack) 17 gm PO DAILY PRN PRN Reason: Constipation Sodium Biphosphate/Sodium Phosphate (Sodium Phosphate,Holmes-Dibasic 133 Ml Enema) 133 ml [place] DAILY PRN PRN Reason: Constipation Sodium Chloride (0.9 % Sodium Chloride Flush 3 Ml Syringe) 3 ml IVFLUSH QSHIFT [facility] Last Admin: 10/03/24 08:57 Dose: Not Given Documented By: SHIRA Non-Admin Reason: IV Running Tamsulosin HCl (Tamsulosin Hcl 0.4 Mg Capsule) 0.8 mg PO BEDTIME [facility] Last Admin: 10/02/24 20:50 Dose: 0.8 mg Documented By: EARL Labs 10/02/24 07:10 10/03/24 05:34 Labs: Laboratory Results - last 24 hr 10/02/24 10/02/24 10/02/24 13:08 18:15 20:41 Anion Gap Estim Creat Clear Calc Estimated GFR POC Glucose 214 H 247 H 327 H Random Glucose Calcium 10/03/24 10/03/24 10/03/24 05:34 07:05 08:30 Anion Gap 12 Estim Creat Clear Calc 64.1 Estimated GFR 57 POC Glucose 267 H 300 H Random Glucose 300 H Calcium 8.6 Microbiology Microbiology Results: Microbiology 10/01/24 13:46 Blood Culture - Preliminary Blood - Venous No growth after 24 hours. 10/01/24 13:46 Blood Culture - Preliminary Blood - Venous No growth after 24 hours. 10/01/24 Unknown Urine Culture - Preliminary Urine clean catch - Clean Catch Midstream Culture in progress. Assessment and Plan (1) Acute UTI: Status: Acute (2) Sepsis: Status: Acute Plan d3 for 84yo M resident of [facility] with DM2, spondylosis, pAF on apixaban, PVD, dementia, HTN, BPH, lymphedema; admitted for sepsis due to UTI acute encephalopathy due to sepsis/UTI - leukocytosis resolved; follow UCx + BCx; 10/01- ceftriaxone prerenal LISA acute lactic acidosis due to hypovolemia - resolved after IV fluids; held furosemide; d/c IV fluids pAF - change metoprolol succinate from prn to standing - continue apixaban BPH - continue tamsulosin DM2 - ines-dose lispro morbid obesity - diet/exercise counseling VTE ppx - apixaban dispo - eventual return to [facility] for LTC In my clinical judgment, the patient requires continued inpatient hospitalization for the following reasons: IV ABX Total time managing care of this patient today: 35 minutes. Quality Stroke Does the patient have a stroke diagnosis?: No VTE Prior VTE?: No VTE Risk Level:: Medical - moderate - high VTE Device Contraindication: Treatment Not Indicated VTE Drug Contraindication: N/A - Med Ordered
[2024-10-03 09:55] VITALS: BMI 44.6
[2024-10-03] MEDS: Metoprolol Succinate ER 25 MG TAB.ER.24H PO (10:12)
[2024-10-03 11:21] LABS: Glucose, Whole Blood 303 mg/dL (60-115)
[2024-10-03 11:45] VITALS: BP 154/69; PULSE 91; RESP 18; TEMP 36.9; O2SAT 96
--- NOTE | 2024-10-03 14:17 | MHC.CM.PN ---
EMR REVIEWED AND PER MD ROUNDS, PT IS NOT MEDICALLY CLEARED FOR DC (IV ABT, UTI) PT WILL RETURN TO [facility] ON DC. CM WILL CONTINUE TO FOLLOW FOR ANY CHANGE TO DC PLAN/NEEDS.
[2024-10-03] MEDS: 0.9 % Sodium Chloride Flush 3 ML SYRINGE IVFLUSH ×2 (14:50→19:33)
[2024-10-03 15:27] VITALS: BP 154/70; PULSE 78; RESP 16; TEMP 36.6; O2SAT 97
[2024-10-03] MEDS: cefTRIAXone sodium 1 GM VIAL IVPUSH (18:05)
[2024-10-03 19:28] VITALS: BP 140/78; PULSE 89; RESP 16; TEMP 36.8; O2SAT 95
[2024-10-03] MEDS: Tamsulosin HCL 0.4 MG CAPSULE 0.8 MG PO (19:28)
[2024-10-03] MEDS: Acetaminophen 325 MG TABLET 650 MG PO (19:28)
[2024-10-03] MEDS: Melatonin 3 MG TABLET 6 MG PO (19:29)
--- NOTE | 2024-10-03 21:57 | PC.NURSE ---
pt's blood sugar at HS was 344, number not coming through to [facility] but verified on POC device. Gave pt 8 units per sliding scale order.
[2024-10-04 03:24] VITALS: BP 141/70; PULSE 87; RESP 18; TEMP 36.8; O2SAT 94
[2024-10-04 04:23] LABS: Glucose, Whole Blood 285 mg/dL (60-115)
[2024-10-04 04:23] LABS: Glucose, Whole Blood 344 mg/dL (60-115)
[2024-10-04] MEDS: Apixaban 5 MG TABLET PO (05:23)
[2024-10-04 06:47] LABS: Anion Gap 11 (12-20); Blood Urea Nitrogen 27 mg/dL (9-16); Calcium 8.6 mg/dL (8.4-10.2); Carbon Dioxide 27 mmol/L (22-29); Chloride 112 mmol/L (96-108); Creatinine Clr Calc Pharmacy 77.5; Estimated Glomerular Filt Rate > 60; Glucose Random 300 mg/dL (60-115); Potassium 3.7 mmol/L (3.3-5.1); Sodium 146 mmol/L (135-145)
[2024-10-04 07:22] VITALS: BP 143/76; PULSE 88; RESP 18; TEMP 36.3; O2SAT 96
[2024-10-04] MEDS: Insulin Lispro 100 UNIT/ML 3 ML VIAL SUBCUT ×2 (07:49→11:25)
[2024-10-04 08:10] LABS: Glucose, Whole Blood 283 mg/dL (60-115)
[2024-10-04] MEDS: cefuroxime axetiL 500 MG TABLET PO (08:46)
[2024-10-04] MEDS: Artificial Tears 15 ML DROPS 1 DROP EYE-BOTH (08:46)
[2024-10-04] MEDS: Gabapentin 400 MG CAPSULE PO (08:47)
[2024-10-04] MEDS: Calcium + Vitamin D 250 MG TABLET 500 MG PO (08:47)
[2024-10-04 08:50] VITALS: BP 140/65; PULSE 103
[2024-10-04] MEDS: Metoprolol Succinate ER 25 MG TAB.ER.24H PO (08:50)
[2024-10-04] MEDS: 0.9 % Sodium Chloride Flush 3 ML SYRINGE IVFLUSH (09:37)
--- NOTE | 2024-10-04 09:46 | PM.DS ---
DS: Providers Provider Date of Service: 10/04/24 Date of admission: 10/01/24 17:42 Date of discharge: 10/04/24 Primary care physician: Marcelo Barry MD DS: Diagnosis Discharge Diagnosis (1) Acute UTI: Status: Acute (2) Sepsis: Status: Acute (3) Acute kidney injury: Status: Acute (4) Septic encephalopathy: Status: Acute DS: Summary Hospital Course Hospital Course: From the history and physical by the admitting hospitalist, ROSARIO Talbert, 10/01/24: 84 year old male with history of insulin-dependent type 2 diabetes, spondylosis, PVD, paroxysmal atrial fibrillation anticoagulated with Eliquis, unspecified dementia, hypertension, BPH, lymphedema presents to the ED earlier today due to fevers up to 100.8, lethargy, and confusion. PHe is from the [facility]. However, patient is only oriented to self and is unable to provide any history. Apparently the patient received his COVID-19 booster on 09/29 and developed these symptoms subsequently. The patient's only complaint at this time is that he is unable to move his bowels. He is currently on a bedpan. On arrival, patient was febrile to 100.9 and blood pressure soft but no hypotension. He has leukocytosis of 17.5. Creatinine 1.70, BUN 36. Electrolytes within normal limits. Glucose 263. Initial lactic acid 2.9, repeat 1.2. Urinalysis with 2+ leukocytes, 3+ blood, 2+ protein, scant urinary sediment, scant squamous epithelial cells, 4+ bacteria. Negative for COVID-19, RSV, influenza. Chest x-ray negative for any acute cardiopulmonary abnormality. In the ED has been treated with cefepime, IV Tylenol and was given 3 L IVF per sepsis protocol. 84yo M resident of [facility] with DM2, spondylosis, pAF on apixaban, PVD, dementia, HTN, BPH, lymphedema; admitted to the medical-surgical unit for sepsis due to UTI. He was treated with ceftriaxone IV. He had mild prerenal LISA that resolved with fluid hydration. Lactic acidosis was due to hypovolemia, not sepsis. Mental status improved as the infection was treated. Blood cultures negative. Urine culture grew Klebsiella pneumoniae resistant to ampicillin and intermediate to nitrofurantoin. He was discharged on cefuroxime. Time Attestation Discharge Coordination Time (in mins): 35 Quality: Safe Use of Opioids Does Pt have an Active Cancer Diagnosis on the Problem List?: No Quality: Stroke Does the patient have a stroke diagnosis?: No Physical Exam Vital Signs: Vital Signs: Last Vital Signs Temp 97.3 F 10/04/24 07:22 Pulse 103 H 10/04/24 08:50 Resp 18 10/04/24 07:22 BP 140/65 H 10/04/24 08:50 Pulse Ox 96 10/04/24 07:22 O2 Del Method Room Air 10/04/24 07:22 O2 Flow Rate 2 10/02/24 03:33 BMI result Body Mass Index 44.6 Gen: in no acute distress HEENT: sclera anicteric, moist mucus membranes Neck: supple Lungs: clear to auscultation bilaterally Heart: irregular, no murmurs Abd: soft, non-tender, non-distended, obese Ext: no edema Skin: warm/well-perfused Neuro: alert and oriented to self only, no focal findings Psych: appropriate affect DS: Data Data Completed and Pending Completed studies during hospitalization [Text1]: Laboratory Results WBC 9.7 X10*3/uL (4.8-10.8) 10/02/24 07:10 RBC 4.34 X10*6/uL (4.60-5.80) L 10/02/24 07:10 Hgb 12.4 g/dl (14.0-18.0) L 10/02/24 07:10 Hct 38.0 % (42.0-52.0) L 10/02/24 07:10 MCV 87.6 fL (80.0-98.0) 10/02/24 07:10 MCH 28.6 pg (27.0-33.0) 10/02/24 07:10 MCHC 32.6 g/dl (31.0-36.0) 10/02/24 07:10 RDW 14.6 % (11.0-16.0) 10/02/24 07:10 Plt Count 111 X10*3/uL (160-400) L 10/02/24 07:10 MPV 10.5 fL (9.4-12.4) 10/02/24 07:10 Immature Gran % (Auto) 0.9 % (0.0-0.4) H 10/02/24 07:10 Neut % (Auto) 82.3 % (45-73) H 10/02/24 07:10 Lymph % (Auto) 7.6 % (20-40) L 10/02/24 07:10 [place] % (Auto) 9.0 % (2-11) 10/02/24 07:10 Eos % (Auto) 0.1 % (0-4) 10/02/24 07:10 Baso % (Auto) 0.1 % (0-2) 10/02/24 07:10 Lymph # (Auto) 0.7 X10*3/uL (1.2-4.9) L 10/02/24 07:10 [place] # (Auto) 0.9 X10*3/uL (0.1-1.2) 10/02/24 07:10 Eos # (Auto) 0.0 X10*3/uL (0.0-0.4) 10/02/24 07:10 Baso # (Auto) 0.0 X10*3/uL (0.0-0.2) 10/02/24 07:10 Abs Immat Gran (auto) 0.09 X10*3/uL (0.00-0.03) H 10/02/24 07:10 Absolute Neuts (auto) 8.0 x10*3/uL (2.0-8.3) 10/02/24 07:10 Absolute Nucleated RBC 0.000 X10*3/uL (0.0-0.012) 10/02/24 07:10 Nucleated RBC % (auto) 0.0 /100WBC (0.0-0.2) 10/02/24 07:10 Smear Tech's Comments VERIFIED 10/01/24 13:15 Sodium 146 mmol/L (135-145) H 10/04/24 05:54 Potassium 3.7 mmol/L (3.3-5.1) 10/04/24 05:54 Chloride 112 mmol/L (96-108) H 10/04/24 05:54 Carbon Dioxide 27 mmol/L (22-29) 10/04/24 05:54 Anion Gap 11 (12-20) L 10/04/24 05:54 BUN 27 mg/dL (9-16) H 10/04/24 05:54 Creatinine 1.01 mg/dL (0.5-1.4) 10/04/24 05:54 Estim Creat Clear Calc 77.5 10/04/24 05:54 Estimated GFR > 60 10/04/24 05:54 POC Glucose 283 mg/dL (60-115) H 10/04/24 07:21 Random Glucose 300 mg/dL (60-115) H 10/04/24 05:54 Lactic Acid 1.2 mmol/L (0.5-2.0) 10/01/24 15:15 Lactic Acid F/U @ 2Hr 2.1 mmol/L (0.5-2.0) H* 10/01/24 18:47 Lactic Acid F/U @ 4Hr 1.6 mmol/L (0.5-2.0) 10/01/24 21:06 Calcium 8.6 mg/dL (8.4-10.2) 10/04/24 05:54 Total Bilirubin 1.3 mg/dL (0.0-1.0) H 10/01/24 13:15 Direct Bilirubin 0.6 mg/dL (0.0-0.5) H 10/01/24 13:15 AST 18 U/L (5-37) 10/01/24 13:15 ALT 17 U/L (0-40) 10/01/24 13:15 Alkaline Phosphatase 109 U/L (39-117) 10/01/24 13:15 Ammonia 36 umol/L (13-55) 10/01/24 13:15 Total Creatine Kinase 88 U/L (38-174) 10/01/24 13:15 Troponin I High Sens 28.3 ng/L (<3.5-35.0) 10/01/24 16:28 Total Protein 6.3 g/dL (6.5-8.0) L 10/01/24 13:15 Albumin 3.4 g/dL (3.5-5.0) L 10/01/24 13:15 Urine Color Dark Yellow 10/01/24 14:21 Urine Appearance Cloudy 10/01/24 14:21 Urine pH 5.0 (5.0-9.0) 10/01/24 14:21 Ur Specific [place] 1.020 (1.005-1.025) 10/01/24 14:21 Urine Protein 100 (2+) mg/dL (Neg-Trace) H 10/01/24 14:21 Urine Glucose (UA) Negative mg/dL (Negative) 10/01/24 14:21 Urine Ketones Trace mg/dL (Negative) 10/01/24 14:21 Urine Blood Large (3+) (Negative) H 10/01/24 14:21 Urine Nitrite Negative (Negative) 10/01/24 14:21 Ur Leukocyte Esterase Moderate (2+) (Negative) H 10/01/24 14:21 Urine RBC 3-5 /HPF (0-2) H 10/01/24 14:21 Urine WBC 6-10 /HPF (0-5) 10/01/24 14:21 Ur Squamous Epith Cells 3-5 /HPF (0-2) 10/01/24 14:21 Urine Bacteria 4+ (None Seen) 10/01/24 14:21 Hyaline Casts 3-5 /LPF (0-2) 10/01/24 14:21 Influenza Type A (PCR) NEGATIVE (Negative) 10/01/24 15:15 Influenza Type B (PCR) NEGATIVE (Negative) 10/01/24 15:15 RSV RNA Qual (PCR) NEGATIVE (Negative) 10/01/24 15:15 SARS-CoV-2 RNA (RT-PCR) NEGATIVE (Negative) 10/01/24 15:15 Impressions Chest X-Ray 10/01/24 13:01 IMPRESSION: No active pulmonary disease. Electronically signed by: Milo Purcell MD 10/01/2024 02:10 PM EDT Discharge Plan Discharge Patient Disposition: Xfer [facility] Discharge Diagnosis: UTI Referrals: Marcelo Barry MD [Primary Care Provider] - 1 Week Discharge Medications: New cefuroxime axetil 500 mg Tablet 500 mg PO Q12H Qty: 8 0RF Continued acetaminophen 325 mg Tablet 650 mg PO Q4H MDD 3g PRN (Reason: pain or fever) gabapentin 400 mg Capsule 400 mg PO TID calcium carbonate-vitamin D3 [Calcium 500 + D] 500 mg(1,250mg) -200 unit Tablet 1 tab PO DAILY carboxymethylcellulose sodium 1 % Drops 1 drp OPHTHALMIC (EYE) BID magnesium hydroxide [Milk of Magnesia] 400 mg/5 mL Suspension 30 ml PO BEDTIME PRN (Reason: Constipation) tamsulosin 0.4 mg Capsule 0.8 mg PO BEDTIME insulin lispro 100 unit/mL Solution 24 unit SUBCUT TIDAC PRN (Reason: BG >/=101) Rx Instructions: before supper insulin lispro 100 unit/mL Solution 1 sliding scale dose SUBCUT USEASDIRECTD Protocol: Insulin Correction Scale Less than or equal to 110 ---- Give (units): 0 111 to 150 Give (units): 0 151 to 200 Give (units): 2 201 to 250 Give (units): 4 251 to 300 Give (units): 6 301 to 350 Give (units): 8 Greater than 350 Give (units): 10 Call MD if Blood Glucose > : 350 ondansetron HCl 4 mg Tablet 4 mg PO Q6H PRN (Reason: Nausea And Vomiting) Fleet Enema 19-7 gram/118 mL Enema 133 ml [place] DAILY PRN (Reason: Constipation) furosemide 20 mg Tablet 20 mg PO DAILY polyethylene glycol 3350 17 gram/dose Powder 17 g PO DAILY PRN (Reason: Constipation) metoprolol succinate [Toprol XL] 25 mg tablet extended release 24 hr 25 mg PO DAILY PRN (Reason: HR>110) Eliquis 5 mg tablet 5 mg PO Q12H Discharge Orders: Discharge Order (Routine); Ordered 10/04/24 Ordered By: Chirag Francis Diet: Diabetic diet Activity on Discharge: As tolerated Stand Alone Forms: Patient Portal Discharge page Print Language: Hebrew Care Plan Goals: cure of UTI Health Concerns: UTI Plan of Treatment: cefuroxime 500 mg twice daily x 4 days Please follow up with your primary care doctor within 1 week. Return to the hospital if you experience recurrent or worsening symptoms. Assessment: See Discharge Summary.
--- NOTE | 2024-10-04 11:17 | MHC.CM.PN ---
DP: PT HAS BEEN MEDICALLY CLEARED FOR DC BACK TO [facility]. HCP/FAMILY EDITA MEZA UPDATED. [facility] UNIT /RN NOTIFIED. DC SUMMARY FAXED. BLS TRANSPORT BOOKED FOR 1 PM VIA [facility].
[2024-10-04 12:51] LABS: Glucose, Whole Blood 339 mg/dL (60-115)
== END 2024-10-04 13:49 | DRG 871 ==
LOC: HO.ED 15:25 → HO.EDOVER 17:56 → HO.S3 10-03 07:00
PROVIDERS: Internal Medicine; Admitting Provider Physician Assistant; Emergency Provider Emergency Medicine Emergency Medical Services; PCP Internal Medicine; Visit Provider Family Medicine
DX: A41.9 Sepsis, unspecified organism (principal); G93.41 Metabolic encephalopathy; N39.0 Urinary tract infection, site not specified; E87.21 Acute metabolic acidosis; N17.9 Acute kidney failure, unspecified; Z68.41 Body mass index [BMI] 40.0-44.9, adult; Z16.11 Resistance to penicillins; I48.0 Paroxysmal atrial fibrillation; F03.90 Unspecified dementia, unspecified severity, without behavioral disturbance, psychotic disturbance, mood disturbance, and anxiety; E11.51 Type 2 diabetes mellitus with diabetic peripheral angiopathy without gangrene; E86.1 Hypovolemia; B96.1 Klebsiella pneumoniae [K. pneumoniae] as the cause of diseases classified elsewhere; N40.0 Benign prostatic hyperplasia without lower urinary tract symptoms; E66.01 Morbid (severe) obesity due to excess calories; Z71.3 Dietary counseling and surveillance; E11.65 Type 2 diabetes mellitus with hyperglycemia; Z20.822 Contact with and (suspected) exposure to COVID-19; Z79.4 Long term (current) use of insulin; Z79.01 Long term (current) use of anticoagulants; Z79.899 Other long term (current) drug therapy
CPT/HCPCS: 0241U; 36415; 71045; 80048; 80076; 81001; 82140; 82550; 82947; 83605; 84484; 85025; 87040; 87086; 87088; 87186; 93005; 93306; 99285; J0131; J0692; J0696; Q9957

== ENCOUNTER → 2024-10-01 13:01 | Outpatient (BNV) | payer OTHER, SELFPAY | PROVIDERS: Emergency Provider Emergency Medicine Emergency Medical Services; Visit Provider Radiology Diagnostic Radiology | DX: R07.9 Chest pain, unspecified (principal) | CPT/HCPCS: 71045 ==

== ENCOUNTER → 2024-10-01 13:01 | Outpatient (BNV) | payer OTHER, SELFPAY | PROVIDERS: Admitting Provider Physician Assistant; Emergency Provider Emergency Medicine Emergency Medical Services; Visit Provider Internal Medicine Cardiovascular Disease | DX: I48.91 Unspecified atrial fibrillation (principal) | CPT/HCPCS: 93010 ==

== ENCOUNTER 2024-10-01 17:42 | Outpatient (BNV) | payer OTHER, SELFPAY | END 2024-10-03 07:00 | PROVIDERS: Admitting Provider Physician Assistant; Emergency Provider Emergency Medicine Emergency Medical Services; PCP Internal Medicine; Visit Provider Internal Medicine Cardiovascular Disease | DX: I48.91 Unspecified atrial fibrillation (principal) | CPT/HCPCS: 93010 ==

== ENCOUNTER → 2024-10-01 17:42 | Outpatient (BNV) | payer OTHER, SELFPAY | PROVIDERS: Admitting Provider Physician Assistant; Emergency Provider Emergency Medicine Emergency Medical Services; Visit Provider Physician Assistant | DX: N39.0 Urinary tract infection, site not specified (principal); A41.9 Sepsis, unspecified organism | CPT/HCPCS: 99223; 99232; 99239 ==

== ENCOUNTER 2024-10-08 07:00 | Outpatient (REF) | payer OTHER, SELFPAY ==
[2024-10-08 07:48] LABS: Anion Gap 13 (12-20); Blood Urea Nitrogen 20 mg/dL (9-16); Calcium 8.7 mg/dL (8.4-10.2); Carbon Dioxide 29 mmol/L (22-29); Chloride 108 mmol/L (96-108); Estimated Glomerular Filt Rate > 60; Glucose Random 200 mg/dL (60-115); Potassium 3.5 mmol/L (3.3-5.1); Sodium 146 mmol/L (135-145)
== END 2024-10-08 07:01 | disposition home or self-care (01) ==
LOC: HO.HSH4E 07:00
PROVIDERS: Visit Provider Internal Medicine Endocrinology, Diabetes & Metabolism
DX: N17.9 Acute kidney failure, unspecified (principal); E11.9 Type 2 diabetes mellitus without complications
CPT/HCPCS: 36415; 80048

== ENCOUNTER 2025-01-18 06:45 | Outpatient (REF) | payer OTHER, SELFPAY ==
--- OUTSIDE RECORDS SUMMARY | 2025-01-18 06:47 | XMS_ITS | Clinical Summary ---
Author Organization [facility] [address] [facility] Address [address] [place] [phone] Phone Care Team Providers Care Needle Loom Weaver Name Role Phone Kamryn Garrido MD Primary Care Provider Allergies Active Allergy Reactions Criticality Noted Date Comments Latex Unknown 02/17/2016 Oxycodone Unknown 12/30/2017 Medications valsartan (DIOVAN) 160 mg tablet Take 1 tablet (160 mg total) by mouth daily. 7 Active coenzyme Q-10 100 mg capsule Take 2 capsules (200 mg total) by mouth. Active tamsulosin (FLOMAX) 0.4 mg 24 hr capsule Take 2 capsules (0.8 mg total) by mouth 1 (one) time each day. 8 Active senna-docusate (PERICOLACE) 8.6-50 mg per tablet Take 1 tablet by mouth daily. Active magnesium hydroxide (MILK OF MAGNESIA) 400 mg/5 mL suspension Take 30 mL by mouth once daily as needed. Active insulin lispro 100 unit/mL injection Take 2-20 units TID per sliding scale 7 Active insulin glargine (LANTUS) 100 unit/mL injection INJECT 28 UNITS UNDER THE SKIN AT BEDTIME (DISCARD OPENED VIAL AFTER 28 DAYS) 8 Active hydrOXYzine HCL (ATARAX) 25 mg tablet Take 1 tablet (25 mg total) by mouth every 8 hours. Active guaiFENesin (ROBITUSSIN) 100 mg/5 mL liquid Take 10 mL (200 mg total) by mouth 3 times daily as needed. Active gabapentin (NEURONTIN) 400 mg capsule Take 1 capsule (400 mg total) by mouth 3 times daily. Active furosemide (LASIX) 20 mg tablet Take by mouth. Activ e folic acid (FOLVITE) 800 mcg tablet Take 0.5 tablets (400 mcg total) by mouth. Active famotidine (PEPCID) 20 mg tablet Take 1 tablet (20 mg total) by mouth 2 times daily as needed. Active docusate sodium (COLACE) 100 mg capsule Take 1 capsule (100 mg total) by mouth daily. 8 Active lqkoupqmah-UD-x cetaminophen 6.25-15-325 mg capsule Active cycloSPORINE 0.05 % drops 1 drop. Active cyanocobalamin (VITAMIN B-12) 1,000 mcg tablet Take 1 tablet (1,000 mcg total) by mouth. Active cyanocobalamin (VITAMIN B-12) 1,000 mcg/mL injection Inject 1 mL (1,000 mcg total) into the shoulder, thigh, or buttocks every 30 (thirty) days. Active calcium citrate-vitamin D3 200 mg-6.25 mcg (250 unit) tablet Active calcium carbonate-vit D3-min 600 mg-10 mcg (400 unit) tablet Take 1 tablet by mouth daily. 4 Active bisacodyL (FLEET BISACODYL) 10 mg/30 mL enema Insert 30 mL (10 mg total) into the rectum. Active atorvastatin (LIPITOR) 20 mg tablet Take 1 tablet (20 mg total) by mouth daily. Active aspirin 81 mg EC tablet Take 1 tablet (81 mg total) by mouth daily. Active apixaban (ELIQUIS) 5 mg tablet Take 1 tablet (5 mg total) by mouth 2 times daily. Active amLODIPine (NORVASC) 5 mg tablet Take 1 tablet (5 mg total) by mouth daily. Active acetaminophen (TYLENOL) 325 mg tablet Take 2 tablets (650 mg total) by mouth. Active FREESTYLE LANCETS MISC Use TID 7 Active glucose blood test strip Use one test strip to check blood sugars three times daily 7 Active insulin syringe-needle U-100 1 mL 30 gauge x 1/2 syringe TO USE FOR LANTUS INJECTIONS 8 Active blood-glucose meter kit 1 Each by Does not apply route daily. 6 Active insulin syringe-needle U-100 0.5 mL 30 gauge x 1/2 syringe Inject 1 Each as directed 3 times daily. 7 Active LYSINE ORAL Take by mouth. Act harpal folic acid/multivit-m in/lutein (CENTRUM SILVER ORAL) Take by mouth. Activ e niacin 500 mg tablet Take 500 mg by mouth daily (with breakfast). Active needle, disp, 25 gauge 25 gauge x 1 needle USE ONE SYRINGE MONTHLY TO INJECT VITAMIN B 12 8 Active mometasone (ELOCON) 0.1 % cream Apply sparingly twice a day to eczema as needed Active ammonium lactate (LAC-HYDRIN) 12 % lotion Apply topically if needed for dry skin. Active metoprolol succinate (TOPROL-XL) 25 mg 24 hr tablet Take 1 tablet (25 mg total) by mouth 1 (one) time each day. Do not crush or chew. 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 (05/14/2024): Stable on MRI of 09/24/2008, 1.5 cm, right lateral ventricle Degenerative arthritis of lumbar spine 9 Disuse syndrome 05/22/2009 Vitamin B 12 deficiency 09/11/2008 Essential hypertension, benign 07/18/2005 Mixed hyperlipidemia 07/18/2005 Pain in joint, shoulder region 07/18/2005 Encounters Date Type Department Care Team Description 11/06/2024 1:00 PM EDT Office Visit Adult Medicine [address] [phone] Alfonso Villatoro PA Skin lesion (Primary Dx) from Last 3 Months Immunizations Name Administration Dates Next Due H1N1 Inj Preservative Free 06/15/2009 Influenza trivalent, 0.5mL ( Fluad) 65yo and older 03/22/2017,04/14/2016,04/15/2015 Influenza trivalent, 0.5mL, preservative free (Fluarix; FluLaval; Fluzone) ages 6mo and older (Afluria) 3 years and older 04/30/2014,05/24/2013,03/28/2012,04/13,04/14/2010,04/03/2009,04/12/2008 ,04/06/2007,06/09/2006,04/20/2005 Pneumococcal conjugate 13 va lent (Prevnar 13, PCV13) 2mo and older 07/15/2015 Pneumococcal polysaccharide 23 valent (Pneumovax 23) 2yo and older 06/09/2010,07/11/2000 Td Tetanus diptheria (Tdvax) 7yo and older 06/08/2011,04/28/2000 Tdap Tetanus diptheria acell ular pertussis (Boostrix; Adacel) 7yo and older 10/16/2012 Zoster Live 12/27/2007 Surgical History Surgery Date Site/Laterality Comments HERNIA REPAIR PROCEDURE: HISTORICAL HERNIA REPAIR/ING; COMMENT: age 17 OTHER SURGICAL HISTORY PROCEDURE: ---- OTHER ----; COMMENT: deviared septum APPENDECTOMY 1970 PROCEDURE: HISTORICAL APPENDECTOMY COLONOSCOPY 07/25/2002 PROCEDURE: HISTORICAL COLONOSCOPY; COMMENT: negative COLONOSCOPY 09/28/2013 PROCEDURE: [place] COLONOSCOPY FLX DX W/COLLJ SPEC WHEN PFRMD; COMMENT: normal SHOULDER SURGERY 2003 PROCEDURE: HISTORICAL SHOULDER SURGERY; COMMENT: left- Dr. Estrada, [facility], [facility] OTHER SURGICAL HISTORY PROCEDURE: HISTORICAL MELANOMA Medical History Medical History Date Comments Mixed hyperlipidemia 07/18/2005 DX:Mixed hy perlipidemia Type II or unspecified type diabetes mellitus without mention of complication, not stated as uncontrolled 07/18/2005 DX:Type II or unspecified ty pe diabetes mellitus without mention of complication, not stated as uncontrolled Essential hypertension, benign 07/18/2005 D X:Essential hypertension, benign Pain in joint, shoulder region 07/18/2005 D X:Pain in joint, shoulder region Amblyopia, unspecified DX:Amblyo alberto, unspecified; COMMENT: left Actinic keratosis 04/21/2015 DX:Actinic ker atosis History of basal cell carcinoma 05/07/2009 DX:History of basal cell carcinoma; COMMENT: BCC 01/19 left wrist (nodular) 08/22 left ear (nodular) 11/18 left ear (infiltrative) 04/18 left ear (nodular) History of squamous cell car cinoma of skin 11/12/2010 DX:History of squamous cell carcinoma of skin; COMMENT: SCC 04/24 left forearm; extensor surface & left forearm; volar aspect (in situ) 09/22 left thumb (in situ) 11/21 right leg (well differentiated, invasive) & left hand (well-differentiated, invasive) 01/19 left forearm & left hand (in situ) 11/18 right shoulder (in situ) History of actinic keratoses 04/21/2015 DX: History of actinic keratoses; COMMENT: Actinic keratosis Family History Medical History Relation Name Comments Arthritis Father Heart attack Father enlarged heart Arthritis Mother Uterine cancer Mother Arthritis Sister Relation Name Status Comments Father Mother Sister Social History Tobacco Use Types Packs/Day Years Used Date Smoking Tobacco: Former Cigarettes Q uit: 07/11/1977 Smokeless Tobacco: Former Alcohol Use Standard Drinks/Week Comments No 0 (1 standard drink = 0.6 oz pur e alcohol) Sex and Gender Information Value Date Recorded Sex Assigned at Not on file Legal Sex Male 4:46 PM EST Gender Identity Not on file Sexual Orientation Not on file Obstetrics History Last Filed Vital Signs Vital Sign Reading Time Taken Comments Blood Pressure 114/68 11/06/2024 12:46 PM EDT Pulse 70 11/06/2024 12:46 PM EDT Temperature 36.6 C (97.8 F) 11/06/2024 12:46 PM EDT Respiratory Rate 16 11/06/2024 12:46 PM EDT Oxygen Saturation 97% 11/06/2024 12:46 PM EDT Inhaled Oxygen Concentration - - Weight - - Height 182.9 cm (6') 11/06/2024 12:46 PM EDT Body Mass Index - - Plan of Treatment Upcoming Encounters Date Type Department Care Team (Late st Contact Info) Description 04/24/2025 11:00 AM EDT Office Visit Adult Medicine [facility] [address] [place], [place] [phone] Kamryn Garrido MD [address] [place] [address] Health Maintenance Due Date Last Done Comments Zoster Vaccines (1 of 2) 02/21/2008 12/27/2007 Diabetes: Annual GFR (Glomerular Filtration Rate) 02/23/2019 02/23/2018 Diabetes: Annual Retina Eye Exam 10/20/2019 10/19/2018 Diabetes: Annual Foot Exam 01/18/2020 01/17/2019 Cholesterol Screening (Lipid Panel) 06/09/2022 09/23/2016 Depression Screening 06/09/2022 Falls Risk Assessment 06/09/2022 Social Influencers of Health Screening 06/09/2022 Diabetes: Annual Urine Albumin-Creatinine Ratio (uACR) 06/26/2022 09/23/2016, 09/23/2016 Diabetes: Blood Sugar Control Test (HGBA1C) 06/26/2022 02/23/2018 Hypertension/CHF/CAD Annual BMP Blood Test 06/26/2022 02/23/2018 DTaP,Tdap,and Td Vaccines (4 - Td or Tdap) 10/16/2022 10/16/2012, 06/08/2011, 04/28/2000 COVID-19 Vaccine ( season) 2024 05/09/2023, 12/20/2022, 03/25/2022, Additional history exists Influenza Vaccine (#1) 2025 , 04/11/2023, 04/15/2022, Additional history exists Pneumococcal Vaccine: 50+ Years Completed 04/22/2022, 07/15/2015, 06/09/2010, Additional history exists RSV Immunization Adult Patients Completed 05/26/2023 HIB Vaccines Aged Out No longer eligi ble based on patient's age to complete this topic HPV Vaccines Aged Out No longer eligi ble based on patient's age to complete this topic Hepatitis A Vaccines Aged Out No long er eligible based on patient's age to complete this topic Hepatitis B Vaccines Aged Out No long er eligible based on patient's age to complete this topic IPV Vaccines Aged Out No longer eligi ble based on patient's age to complete this topic MMR Vaccines Aged Out No longer eligi ble based on patient's age to complete this topic Meningococcal ACWY Vaccine Aged Out N o longer eligible based on patient's age to complete this topic Meningococcal B Vaccine Aged Out No l onger eligible based on patient's age to complete this topic RSV Immunization Patients Under 20 months Aged Out No longer eligible based on patient's age to complete this topic Varicella Vaccines Aged Out No longer eligible based on patient's age to complete this topic Procedures Procedure Name Priority Date/Time Associated Diagnosis Comments ANNUAL BMP BLOOD TEST Routine 02/23/2018 HEMOGLOBIN A1C Routine 02/23/2018 URINE ALBUMIN CREATININE RATIO Routine 09/23/2016 LIPID PANEL Routine 09/23/2016 from Last 3 Months or Most Recently Relevant to Health Maintenance Results * Annual BMP Blood Test (02/23/2018) Pathologist [facility] Annual BMP Blood Test Abstracted [facility] Provider HEALTH MAINTENANCE Final Result * (ABNORMAL) Hemoglobin A1c (02/23/2018) Pathologist [facility] Hemoglobin A1C 7.1(A) 4.0 - 6.0 % Blood Venous blood specimen / Unknown Result [facility] Provider LAB BLOOD ORDERABLES Paulina l Result * Urine Albumin Creatinine Ratio (09/23/2016) Pathologist [facility] Urine Albumin Creatinine Ratio Abstracted Result [facility] Provider HEALTH MAINTENANCE Final Result * Lipid panel (09/23/2016) Pathologist [facility] LDL/HDL Ratio 3 0 - 4 Triglycerides 95 0 - 150 mg/dL Cholesterol 119 0 - 200 mg/dL HDL 45 >=40 mg/dL LDL Cholesterol 55 0 - 100 mg/dL Blood Venous blood specimen / Unknown Result [facility] Provider LAB BLOOD ORDERABLES Paulina l Result from Last 3 Months or Most Recently Relevant to Health Maintenance Insurance [facility] Advance Directives Documents on File Type Date Recorded Patient Plate Maker Zinc Expl anation Health Care Decision (hx) 12/16/2021 AD YE DIRECTIVE Health Care Decision (hx) 08/20/2017 AD YE DIRECTIVE Health Care Decision (hx) 06/12/2015 AD YE DIRECTIVE Care Teams Needle Loom Weaver Relationship Specialty Start Date End Date Kamryn Garrido MD [address] [place] [id number] PCP - General 06/28/23
--- OUTSIDE RECORDS SUMMARY | 2025-01-18 06:47 | XMS_ITS | Encounter Summary ---
Author Organization [employer] Address [address] [facility] [address] [place] [address] Care Team Providers Care Tower Hand Name Role Phone Unavailable Primary Care Provider Unavailabl e Encounter Details Date Type Department Care Team (Latest Contact Info) Description 02/17/2022 Abstract [facility] CONVERSIONS Dental, Provider, DDS Social History Tobacco Use Types Packs/Day Years Used Date Smoking Tobacco: Never Assessed Sex and Gender Information Value Date Recorded Sex Assigned at Male 05/10/2022 10:33 AM EDT Legal Sex Male 10:33 AM EDT Gender Identity Male 05/10/2022 10:33 AM EDT Sexual Orientation Straight 05/10/2022 10 :33 AM EDT documented as of this encounter Plan of Treatment Not on file documented as of this encounter Visit Diagnoses Not on filedocumented in this encounter
[2025-01-18 07:57] LABS: Hemoglobin A1C 145.6029 umol/L; Total Hemoglobin (HGBA1C) 3380.3066 umol/L
== END 2025-01-18 06:46 | disposition home or self-care (01) ==
LOC: HO.HSH4E 06:45
PROVIDERS: Visit Provider Internal Medicine Endocrinology, Diabetes & Metabolism
DX: E11.9 Type 2 diabetes mellitus without complications (principal)
CPT/HCPCS: 36415; 83036

== ENCOUNTER 2025-05-06 06:49 | Outpatient (REF) | payer OTHER, SELFPAY ==
--- OUTSIDE RECORDS SUMMARY | 2025-05-06 06:55 | XMS_ITS | Clinical Summary ---
Author Organization [employer] Address [address] [facility] [address] [place] [address] Care Team Providers Care Ceramic Sprayer Name Role Phone Unavailable Primary Care Provider Unavailabl e Allergies Active Allergy Reactions Criticality Noted Date Comments Latex Unknown 02/17/2016 Oxycodone Unknown 12/30/2017 Medications [id number] cetaminophen (Vicks Nyquil Cold & Flu Nighttime Relief) 15-6.25-325 MG capsule Active tamsulosin (Flomax) 0.4 MG 24 hr capsule Take 1 capsule by mouth at bed time. Active valsartan (Diovan) 160 MG tablet Take 1 tablet by mouth at bed time. Active aspirin 81 MG EC tablet Take 1 tablet by mouth in the morning. Active Calcium-Choleca lciferol (Calcet Petites) 200-6.25 MG-MCG tablet Active carboxymethylce llulose (Refresh Celluvisc) 1 % ophthalmic solution dropperette Active cyanocobalamin (Vitamin B-12) 1000 MCG/ML injection inject 1 milliliter by intramuscular route every month Active hydrOXYzine HCl (Atarax) 25 MG tablet Take 1 tablet by mouth every 8 (eight) hours. Active insulin lispro (HumaLOG) 100 UNIT/ML injection Inject under the skin. Active Liniments (Mecholyl) 0.25 % ointment Active Lotion Base (VersaPro) lotion Active Menthol-Camphor (Pierre Warm Therapy) 3-3 % gel Active Multiple Vitamins-Minera ls (Compete) tablet Active Multiple Vitamins-Minera ls (PreserVision AREDS 2) capsule Active prochlorperazin e (Compazine) 25 MG suppository Insert 1 suppository into the rectum every 12 (twelve) hours. Active raNITIdine (Zantac) 150 MG tablet take 1 tablet by oral route 2 times every day Active sodium phosphate (Fleets) 7-19 GM/118ML enema enema Active tuberculin (Aplisol) 5 UNIT/0.1ML injection Active insulin glargine (Lantus) 100 UNIT/ML injection Inject 60 Units under the skin at bedtime. Active acetaminophen (Tylenol) 325 MG tablet Take 650 mg by mouth if needed. Active amLODIPine (Norvasc) 5 MG tablet Take 5 mg by mouth in the morning. Active apixaban (Eliquis) 5 MG tablet Take 5 mg by mouth 2 times daily. Active Calcium Carb-Cholecalci ferol 600-10 MG-MCG tablet Take 1 tablet by mouth in the morning. 4 Active docusate sodium (Colace) 100 MG capsule Take 1 capsule by mouth at bed time. 8 Active gabapentin (Neurontin) 400 MG capsule Take 400 mg by mouth 3 times daily. Active metoprolol succinate XL (Toprol-XL) 12.5 mg 24 hr split tablet Take 25 mg by mouth in the morning. Active famotidine (Pepcid) 20 MG tablet Take 20 mg by mouth if needed in the morning and at bedtime for heartburn. Active magnesium hydroxide (Milk of Magnesia) 400 MG/5ML suspension Take 30 mL by mouth if needed at bedtime for constipation. Active atorvastatin (Lipitor) 20 MG tablet Take 20 mg by mouth Once per day. Active furosemide (Lasix) 20 MG tablet Take by mouth. Activ e senna-docusate sodium (Senokot-S) 8.6-50 MG tablet Take 1 tablet by mouth Once per day. Active polyethylene glycol, PEG, 3350 (Glycolax) 17 GM/SCOOP powder Take by mouth. Activ e bisacodyl (Fleet Bisacodyl) 10 MG/30ML enema Insert 10 mg into the rectum 1 (one) time. Active guaiFENesin (Robitussin) 100 MG/5ML liquid Take 200 mg by mouth if needed in the morning, at noon, and at bedtime for cough. Active bacitracin 500 UNIT/GM ointment Apply topically 2 times daily. Active cephalexin (Keflex) 500 MG capsule Take 500 mg by mouth 4 times daily. 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 Vitamin B 12 deficiency 09/11/2008 Essential hypertension, benign 07/18/2005 Mixed hyperlipidemia 07/18/2005 Pain in joint, shoulder region 07/18/2005 Encounters Date Type Department Care Team Description 03/06/2025 1:45 PM EDT Office Visit [facility] [address] [place] [id number] [place] [place] Dental plaque (Primary Dx); Dental calculus from Last 3 Months Social History Tobacco Use Types Packs/Day Years Used Date Smoking Tobacco: Never Passive Smoke Exposure: Never Smokeless Tobacco: Never Tobacco Cessation:Counseling Given: Not Answered Alcohol Use Standard Drinks/Week Comments Never 0 (1 standard drink = 0.6 oz pur e alcohol) Sex and Gender Information Value Date Recorded Sex Assigned at Male 05/10/2022 10:33 AM EDT Legal Sex Male 10:33 AM EDT Gender Identity Male 05/10/2022 10:33 AM EDT Sexual Orientation Straight 05/10/2022 10 :33 AM EDT Last Filed Vital Signs Vital Sign Reading Time Taken Comments Blood Pressure 128/86 11/14/2024 12:59 PM EDT Pulse 70 11/14/2024 12:59 PM EDT Temperature - - Respiratory Rate - - Oxygen Saturation - - Inhaled Oxygen Concentration - - Weight - - Height - - Body Mass Index - - Plan of Treatment Health Maintenance Due Date Last Done Comments Depression Screening 1942 Lipid Panel 1942 SDOH Screening 1942 Derm Melanoma Skin Check 02/14/1943 Diabetes: Foot Exam 1952 Eye Exam 1952 Alcohol/Substance Use Screening 1954 Diabetes: Urine Protein Screening 1961 Zoster Vaccines (2 of 3) 02/21/2008 12/27/2007 Diabetes: Hemoglobin A1C 05/26/2018 02/23/2018 DTaP/Tdap/Td Vaccines (2 - Td or Tdap) 10/16/2022 10/16/2012, 06/08/2011, 04/28/2000 COVID-19 Vaccine ( season) 2025 05/09/2023, 12/20/2022, 03/25/2022, Additional history exists Influenza Vaccine (#1) 2025 , 04/11/2023, 04/15/2022, Additional history exists Dental Oral Exam 05/18/2025 11/14/2024, 12/15/2023 Dental Prophylaxis 09/07/2025 03/06/2025, 0 11/21/2024, 08/22/2024, Additional history exists Dental X-Ray: Bitewings 11/15/2025 11/15/19 25, 12/21/2023, 08/24/2023 Tobacco Screening 03/06/2026 03/06/2025 Dental X-Ray: Full Mouth 11/16/2027 11/14/2024 Pneumococcal Vaccine: 50+ Years Completed 04/22/2022, 07/15/2015, 06/09/2010, Additional history exists RSV Patients and Patients Aged 60 years or older Completed 05/26/2023 HIB Vaccines Aged Out No [...] patient's age to complete this topic Meningococcal Vaccine Aged Out No negro angella eligible based on patient's age to complete this topic RSV under 20 months Aged Out No longe r eligible based on patient's age to complete this topic Rotavirus Vaccines Aged Out No longer eligible based on patient's age to complete this topic Procedures Procedure Name Priority Date/Time Associated Diagnosis Comments ORAL HYGIENE INSTRUCTIONS Routine 03/06/2025 1:45 PM EDT Dental plaque Dental calculus PROPHYLAXIS - ADULT Routine 03/06/2025 1 :45 PM EDT Dental plaque Dental calculus TOPICAL APPLICATION OF FLUORIDE VARNISH Routine 03/06/2025 1:45 PM EDT INTRAORAL - COMPLETE SERIES OF RADIOGRAPHIC IMAGES Routine 11/14/2024 1:00 PM EDT PERIODIC ORAL EVALUATION - ESTABLISHED PATIENT Routine 11/14/2024 1:00 PM EDT from Last 3 Months or Most Recently Relevant to Health Maintenance Advance Directives Documents on File Type Date Recorded Patient Homicide Squad Commanding Officer Expl anation Advance Directives and Living Will 05/27/2023 Life Sustaining Treatment Power of Inspector Cold Working 05/27/2023 ALE
--- OUTSIDE RECORDS SUMMARY | 2025-05-06 06:55 | XMS_ITS | Clinical Summary ---
Author Organization [facility] [address] [facility] Address [address] [place] [phone] Phone Care Team Providers Care Systems Applications Programming Lead Name Role Phone Kamryn Garrido MD Primary Care Provider Allergies Active Allergy Reactions Criticality Noted Date Comments Latex Unknown 02/17/2016 Oxycodone Unknown 12/30/2017 Medications tamsulosin (FLOMAX) 0.4 mg 24 hr capsule Take 2 capsules (0.8 mg total) by mouth 1 (one) time each day. 8 Active magnesium hydroxide (MILK OF MAGNESIA) 400 mg/5 mL suspension Take 30 mL by mouth once daily as needed. Active cyanocobalamin (VITAMIN B-12) 1,000 mcg/mL injection Inject 1 mL (1,000 mcg total) into the shoulder, thigh, or buttocks every 30 (thirty) days. Active calcium carbonate-vit D3-min 600 mg-10 mcg (400 unit) tablet Take 1 tablet by mouth daily. 4 Active bisacodyL (FLEET BISACODYL) 10 mg/30 mL enema Insert 30 mL (10 mg total) into the rectum. Active apixaban (ELIQUIS) 5 mg tablet Take [...] as directed 3 times daily. 7 Active needle, disp, 25 gauge 25 gauge x 1 needle USE ONE SYRINGE MONTHLY TO INJECT VITAMIN B 12 8 Active mometasone (ELOCON) 0.1 % cream Apply sparingly twice a day to eczema as needed Active ammonium lactate (LAC-HYDRIN) 12 % lotion Apply topically if needed for dry skin. Active valsartan (DIOVAN) 80 mg tablet Take 1 tablet (80 mg total) by mouth 1 (one) time each day. Active ondansetron (ZOFRAN) 4 mg tablet Take 1 tablet (4 mg total) by mouth every 8 (eight) hours if needed for nausea or vomiting. Active insulin lispro (HUMALOG KWIKPEN INSULIN SUBQ) Inject 24 Units under the skin 3 (three) times a day before meals. Plus sliding scale Active insulin glargine,hum.re c.anlog (LANTUS SOLOSTAR U-100 INSULIN SUBQ) Inject 56 Units under the skin at bedtime. Active metoprolol succinate (TOPROL-XL) 25 mg 24 hr tablet Take 0.5 tablets (12.5 mg total) by mouth 1 (one) time each day. Do not crush or chew. Active atorvastatin (LIPITOR) 20 mg tablet Take 1 tablet (20 mg total) by mouth at bedtime. Active furosemide (LASIX) 20 mg tablet Take 1 tablet (20 mg total) by mouth 1 (one) time each day. Active gabapentin (NEURONTIN) 400 mg capsule Take 1 capsule (400 mg total) by mouth 3 (three) times a day. Active carboxymethylce llulose 1 % ophthalmic solution Administer 1 drop into both eyes 2 (two) times a day. Active vit C/E/Zn/coppr/nahum tein/zeaxan (PRESERVISION AREDS-2 ORAL) Take 2 capsules by mouth 1 (one) time each day. Active docusate sodium (COLACE) 100 mg capsule Take 1 capsule (100 mg total) by mouth 1 (one) time each day. Active multivitamin tablet Take 1 tablet by mouth 1 (one) time each day. Active polycarbophil (FIBERCON) 625 mg tablet Take 2 tablets (1,250 mg total) by mouth 1 (one) time each day. Active cholecalciferol (VITAMIN D-3) 25 mcg (1,000 unit) tablet Take 1 tablet (1,000 Units total) by mouth 1 (one) time each day. Active senna (SENOKOT) 8.6 mg tablet Take 1 tablet (8.6 mg total) by mouth 1 (one) time each day. Active Active Problems Problem Noted Date Diagnosed Date Type 2 diabetes mellitus wit h other specified complication ([facility] V24, [facility] V28) 03/13/2025 Atrial fibrillation ([facility] V24, [facility] V28) 0 03/13/2025 Benign prostatic hyperplasia 03/13/2025 Type II diabetes mellitus wi th neurological manifestations ([facility] V24, [facility] V28) 08/13/2011 Malignant neoplasm of [...] Encounters Date Type Department Care Team Description 03/13/2025 9:45 AM EDT Office Visit Adult Medicine [address] [phone] Kamryn Garrido MD Primary hypertension (Primary Dx); Atrial fibrillation, unspecified type (CMS/HCC V24, CMS/[facility] V28); Type 2 diabetes mellitus with other specified complication, unspecified whether terminal computer operator insulin use ([facility] V24, [facility] V28); Benign prostatic hyperplasia, unspecified whether lower urinary tract symptoms present; Constipation, unspecified constipation type; Physical deconditioning; History of skin cancer 02/27/2025 Telephone Adult Medicine [address] [phone] [place] 02/07/2025 Telephone Adult Medicine [address] [phone] Kamryn Garrido MD from Last 3 Months Immunizations Immunization Administration Dates Next Due H1N1 Inj Preservative [...] HISTORICAL COLONOSCOPY; COMMENT: negative COLONOSCOPY 09/28/2013 PROCEDURE: [place] COLONOSCOPY FLX DX W/COLLJ SPEC WHEN PFRMD; COMMENT: normal SHOULDER SURGERY 2003 PROCEDURE: HISTORICAL SHOULDER SURGERY; COMMENT: left- Dr. Estrada, akanksha, DCE OTHER SURGICAL HISTORY PROCEDURE: HISTORICAL MELANOMA Medical [...] Sign Reading Time Taken Comments Blood Pressure 122/71 03/13/2025 9:46 AM EDT Pulse 67 03/13/2025 9:46 AM EDT Temperature 36.3 C (97.4 F) 03/13/2025 9:46 AM EDT Respiratory Rate 12 03/13/2025 9:46 AM EDT Oxygen Saturation 97% 11/06/2024 12:46 PM EDT Inhaled Oxygen Concentration - - Weight - - Height 182.9 cm (6') 03/13/2025 9:46 AM EDT Body Mass Index - - Plan of Treatment Upcoming Encounters Date Type Department Care Team (Late st Contact Info) Description 07/19/2025 2:00 PM EST Office Visit [address] [phone] Kamryn Garrido MD [address] [place] [address] 09/17/2025 11:00 AM EDT Office Visit [address] [phone] Kamryn Garrido MD [address] [place] [address] Health Maintenance Due Date Last Done Comments Zoster Vaccines (1 of 2) 02/21/2008 12/27/2007 Diabetes: Annual GFR (Glomerular Filtration Rate) 02/23/2019 02/23/2018 Diabetes: Annual Retina Eye Exam 10/20/2019 10/19/2018 Diabetes: Annual Foot Exam 01/18/2020 01/17/2019 Cholesterol Screening (Lipid Panel) 06/09/2022 09/23/2016 Falls Risk Assessment 06/09/2022 Social Influencers of Health Screening 06/09/2022 Diabetes: Annual Urine Albumin-Creatinine Ratio (uACR) 06/26/2022 09/23/2016, 09/23/2016 Diabetes: Blood Sugar Control Test (HGBA1C) 06/26/2022 02/23/2018 Hypertension/CHF/CAD Annual BMP Blood Test 06/26/2022 02/23/2018 DTaP,Tdap,and Td Vaccines (4 - Td or Tdap) 10/16/2022 10/16/2012, 06/08/2011, 04/28/2000 Depression Screening 07/11/2024 COVID-19 Vaccine ( season) 2025 05/09/2023, 12/20/2022, 03/25/2022, Additional history exists Influenza Vaccine (#1) 2025 4, 04/11/2023, 04/15/2022, Additional history exists Pneumococcal Vaccine: [...] Results * Annual BMP Blood Test (02/23/2018) Annual BMP Blood Test Abstracted us Historical Provider HEALTH MAINTENANCE Final Result * (ABNORMAL) Hemoglobin A1c (02/23/2018) Hemoglobin A1C 7.1(A) 4.0 - 6.0 % Blood Venous blood specimen / Unknown Historical Provider LAB BLOOD ORDERABLES Paulina l Result * HM Urine Albumin Creatinine Ratio (09/23/2016) HM Urine Albumin Creatinine Ratio Abstracted Historical Provider HEALTH MAINTENANCE Final Result * Lipid panel (09/23/2016) LDL/HDL Ratio 3 0 - 4 Triglycerides 95 0 - 150 mg/dL Cholesterol 119 0 - 200 mg/dL HDL 45 >=40 mg/dL LDL Cholesterol 55 0 - 100 mg/dL Blood Venous blood specimen / Unknown Result [facility] Historical Provider LAB BLOOD ORDERABLES Paulina l Result from Last 3 Months or Most Recently Relevant to Health Maintenance Insurance [facility] PLAN Advance Directives Documents on File Type Date Recorded Patient Supply Tech Expl anation Health Care Decision (hx) 12/16/2021 AD YE DIRECTIVE Health Care Decision (hx) 08/20/2017 AD YE DIRECTIVE Health Care Decision (hx) 06/12/2015 AD YE DIRECTIVE Care Teams Systems Applications Programming Lead Relationship Specialty Start Date End Date Kamryn Garrido MD [address] [place] [address] PCP - General 06/28/23
--- OUTSIDE RECORDS SUMMARY | 2025-05-06 06:55 | XMS_ITS | Encounter Summary ---
Author Organization [employer] Address [address] [facility] [address] [place] [address] Care Team Providers Care Plant Breeder Scientist Name Role Phone Unavailable Primary Care Provider Unavailabl e Encounter Details Date Type Department Care Team (Latest Contact Info) Description 12/24/2020 Abstract [facility] CONVERSIONS Dental, Provider, DDS Social History Tobacco [...]
--- OUTSIDE RECORDS SUMMARY | 2025-05-06 06:55 | XMS_ITS | Encounter Summary ---
Author Organization [facility] Address [address] [facility] [address] [place] [address] Care Team Providers Care Auto Locator Name Role Phone Unavailable Primary Care Provider Unavailabl e Encounter Details Date Type Department Care Team (Latest Contact Info) Description 02/17/2022 Abstract [facility] CONVERSION[facility] Dental, Provider, DDS Social History Tobacco [...]
[2025-05-06 06:57] LABS: MANUAL DIFF FLAG NO
[2025-05-06 07:12] LABS: Hematocrit 40.5 % (42.0-52.0); Hemoglobin 13.0 g/dl (14.0-18.0); Imm Gran Abs Auto 0.03 X10*3/uL (0.00-0.03); Imm Gran Pct Auto 0.4 % (0.0-0.4); Lymphocytes Absolute Auto 2.1 X10*3/uL (1.2-4.9); Mean Corpuscular HGB Conc 32.1 g/dl (31.0-36.0); Mean Corpuscular Hemoglobin 28.4 pg (27.0-33.0); Mean Corpuscular Volume 88.6 fL (80.0-98.0); NRBC Abs Auto 0.000 X10*3/uL (0.0-0.012); NRBC Pct Auto 0.0 /100WBC (0.0-0.2); Platelet Count 168 X10*3/uL (160-400); Red Blood Count 4.57 X10*6/uL (4.60-5.80); White Blood Count 7.3 X10*3/uL (4.8-10.8)
[2025-05-06 07:29] LABS: Anion Gap 12 (12-20); Blood Urea Nitrogen 25 mg/dL (9-16); Calcium 8.5 mg/dL (8.4-10.2); Carbon Dioxide 27 mmol/L (22-29); Chloride 108 mmol/L (96-108); Cholesterol 105 mg/dL (<200); Estimated Glomerular Filt Rate > 60; HDL Cholesterol 32 mg/dL (>40); Potassium 3.7 mmol/L (3.3-5.1); Sodium 143 mmol/L (135-145); Triglycerides 195 mg/dL (<150)
[2025-05-06 08:10] LABS: Total Protein Urine Random < 7 mg/dL (<12)
== END 2025-05-06 06:50 | disposition home or self-care (01) ==
LOC: HO.HSH4E 06:49
PROVIDERS: Visit Provider Internal Medicine Endocrinology, Diabetes & Metabolism
DX: E11.9 Type 2 diabetes mellitus without complications (principal)
CPT/HCPCS: 36415; 80048; 80061; 82570; 83036; 84156; 85025

== ENCOUNTER 2025-06-13 06:09 | Outpatient (REF) | payer OTHER, SELFPAY ==
--- OUTSIDE RECORDS SUMMARY | 2025-06-13 06:11 | XMS_ITS | Clinical Summary ---
Author Organization [facility] [address] [facility] Address [address] [place] [phone] Phone Care Team Providers Care Quill Buncher And Sorter Name Role Phone Kamryn Garrido MD Primary [...] diabetes mellitus wit h other specified complication ([facility] V24, [facility] V28) 03/13/2025 Atrial fibrillation ([facility] V24, [facility] V28) 0 03/13/2025 Benign prostatic hyperplasia 03/13/2025 Type II diabetes mellitus wi th neurological manifestations ([facility] V24, [facility] V28) 08/13/2011 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 01/23/2011 [place] (05/14/2024[place] [facility] [place] 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 Estrada, decompression, DCE OTHER SURGICAL HISTORY PROCEDURE: HISTORICAL MELANOMA [...] (in situ) 09/22 left thumb (in situ) 5/14 right leg (well differentiated, invasive) & left [...] Years Used Date Smoking Tobacco: Former Cigarettes 4 Q uit: 07/11/1977 Smokeless Tobacco: Former Alcohol [...] Description 07/19/2025 2:00 PM EST Office Visit Adult Medicine [address] [phone] Kamryn Garrido MD [address] [place], [place] 09/17/2025 11:00 AM EDT Office Visit Adult [address] [phone] Kamryn Garrido MD [address] [place], [place] Health Maintenance Due Date Last Done Comments [...] * Annual BMP Blood Test (02/23/2018) Pathologist [facility] Annual BMP Blood Test Abstracted [facility] Provider HEALTH MAINTENANCE Final Result * (ABNORMAL) Hemoglobin A1c (02/23/2018) Pathologist [facility] Hemoglobin A1C 7.1(A) 4.0 - 6.0 % Blood Venous blood specimen / Unknown Result [facility] Provider LAB BLOOD ORDERABLES Paulina l Result * Urine Albumin Creatinine Ratio (09/23/2016) Pathologist [facility] Urine Albumin Creatinine Ratio Abstracted Result [facility] Provider HEALTH MAINTENANCE Final Result * Lipid panel (09/23/2016) [facility] LDL/HDL Ratio 3 0 - 4 Triglycerides 95 0 - 150 mg/dL Cholesterol 119 0 - 200 mg/dL HDL 45 >=40 mg/dL LDL Cholesterol 55 0 - 100 mg/dL Blood Venous blood specimen / Unknown Result [facility] Provider LAB BLOOD ORDERABLES Paulina l Result from Last 3 Months or Most Recently Relevant to Health Maintenance Insurance [facility] PLAN Advance Directives Documents on File Type Date Recorded Patient Polymer Chemist Expl anation Health Care Decision (hx) 12/16/2021 AD YE DIRECTIVE Health Care Decision (hx) 08/20/2017 AD YE DIRECTIVE Health Care Decision (hx) 06/12/2015 AD YE DIRECTIVE Care Teams Quill Buncher And Sorter Relationship Specialty Start Date End Date Kamryn Garrido MD [address] [place] [address] PCP - General 06/28/23
[2025-06-13 06:14] LABS: MANUAL DIFF FLAG NO
[2025-06-13 06:41] LABS: Hematocrit 37.6 % (42.0-52.0); Hemoglobin 12.4 g/dl (14.0-18.0); Imm Gran Abs Auto 0.02 X10*3/uL (0.00-0.03); Imm Gran Pct Auto 0.3 % (0.0-0.4); Lymphocytes Absolute Auto 2.2 X10*3/uL (1.2-4.9); Mean Corpuscular HGB Conc 33.0 g/dl (31.0-36.0); Mean Corpuscular Hemoglobin 28.8 pg (27.0-33.0); Mean Corpuscular Volume 87.4 fL (80.0-98.0); NRBC Abs Auto 0.000 X10*3/uL (0.0-0.012); NRBC Pct Auto 0.0 /100WBC (0.0-0.2); Platelet Count 167 X10*3/uL (160-400); Red Blood Count 4.30 X10*6/uL (4.60-5.80); White Blood Count 6.8 X10*3/uL (4.8-10.8)
[2025-06-13 06:50] LABS: Anion Gap 12 (12-20); Blood Urea Nitrogen 28 mg/dL (9-16); Calcium 8.6 mg/dL (8.4-10.2); Carbon Dioxide 26 mmol/L (22-29); Chloride 106 mmol/L (96-108); Estimated Glomerular Filt Rate > 60; Potassium 3.9 mmol/L (3.3-5.1); Sodium 140 mmol/L (135-145)
== END 2025-06-13 06:10 | disposition home or self-care (01) ==
LOC: HO.HSH4E 06:09
PROVIDERS: Visit Provider Internal Medicine Endocrinology, Diabetes & Metabolism
DX: E11.9 Type 2 diabetes mellitus without complications (principal)
CPT/HCPCS: 36415; 80048; 83036; 85025